=== PATIENT | female | born 1960 | race Caucasian/White ===

== ENCOUNTER 2020-02-18 11:18 | Outpatient (CLI) | payer MEDICARE, OTHER, SELFPAY ==
--- NOTE | 2020-02-18 11:30 | MM_ITS ---
WS: [id number] BILATERAL DIGITAL SCREENING MAMMOGRAPHY WITH CAD CLINICAL INFORMATION: screen breast HISTORY: Screening mammogram. Bilateral breast soreness COMPARISON: TECHNIQUE: Bilateral CC and MLO views. FINDINGS: Scattered fibroglandular densities bilaterally. No suspicious focal mass, asymmetry, calcifications, or architectural distortion. No evidence of malignancy. A few stable intramammary lymph nodes MM/[place] [id number] IMPRESSION: BI-RADS: 2-Benign FOLLOW UP: 1 Year Follow-up Recommend return to annual screening mammography.
== END 2020-02-18 11:19 | disposition home or self-care (01) ==
LOC: RADSHAW 11:29
PROVIDERS: PCP Nurse Practitioner; Visit Provider Nurse Practitioner
DX: Z12.31 Encounter for screening mammogram for malignant neoplasm of breast (principal)
CPT/HCPCS: 77067

== ENCOUNTER → 2020-02-25 16:01 | Outpatient (BNVA) | payer MEDICARE, OTHER, SELFPAY | PROVIDERS: PCP Nurse Practitioner; Visit Provider Nurse Practitioner | DX: S89.92XA Unspecified injury of left lower leg, initial encounter (principal) | CPT/HCPCS: 73562 ==

== ENCOUNTER → 2020-06-29 13:59 | Outpatient (BNVA) | payer MEDICARE, SELFPAY | PROVIDERS: PCP Nurse Practitioner; Visit Provider Nurse Practitioner | DX: L50.9 Urticaria, unspecified (principal); E03.8 Other specified hypothyroidism; E11.65 Type 2 diabetes mellitus with hyperglycemia; Z98.890 Other specified postprocedural states; E11.69 Type 2 diabetes mellitus with other specified complication; E78.5 Hyperlipidemia, unspecified; I10 Essential (primary) hypertension | CPT/HCPCS: 80053; 80061; 81000; 82043; 83036; 84439; 84443; 84481 ==

== ENCOUNTER 2021-01-03 13:44 | Emergency (ER) | payer MEDICARE, SELFPAY ==
[2021-01-03] VITALS (7 sets, daily range): BP systolic 102–138; BP diastolic 56–88; PULSE 81–113; RESP 16–22; TEMP 36.9; O2SAT 90–96; BMI 26.6
--- NOTE | 2021-01-03 19:07 | XRR_ITS ---
PROCEDURE INFORMATION: Exam: XR Chest Exam date and time: 01/03/2021 7:07 PM Age: 60 years old Clinical indication: Cough and shortness of breath; Additional info: Dyspnea, covid TECHNIQUE: Imaging protocol: XR of the chest. Views: 1 view. COMPARISON: CR XR chest 2V* [id number] 12/31/2020 10:03 AM FINDINGS: Lungs: Fibrotic interstitial lung changes are redemonstrated. No developing airspace opacities are identified. Pleural spaces: Unremarkable. No pleural effusion. No pneumothorax. Heart/Mediastinum: Unremarkable. No cardiomegaly. Bones/joints: Unremarkable. XR/XR chest 1V portable [id number] IMPRESSION: No changes in the chest are identified.
--- NOTE | 2021-01-03 20:43 | ED_ITS ---
HPI - COVID General: Chief Complaint: COVID symptoms Stated Complaint: N/V/D, SOB, Headache, Covid + Time Seen by Provider: 01/03/21 20:42 Triage information: Has fever, cough or shortness of breath . Exposure to COVID + person last 14 days History of Present Illness: HPI Narrative: Patient comes in with respiratory symptoms for about 3 weeks. Patient reports cough and congestion with an occasional fever for last 3 weeks. Patient 1 week ago was tested for COVID-19 and was positive. Patient comes in today due to the persistent symptoms. Patient overall looks mildly unwell but not toxic. Patient is alert oriented without any acute distress. COVID 19 common symptoms: positive fever(s) and non-productive cough COVID Results: No Data to Display Review of Systems General: Reports: 10 or more systems reviewed and unremarkable except in HPI and below Const: Reports: fever(s) Resp: Reports: non-productive cough PFS ED PFSH: Medical History (Updated 01/03/21 @ 22:27 by DILMA Mcconnell) Adult onset hypothyroidism Asthma Diabetes mellitus with hyperglycemia, without long-term current use of insulin Essential (primary) hypertension Urticaria of entire body Surgical History (Updated 01/02/21 @ 21:58 by СЕРГЕЙ Milligan) History of cholecystectomy 2005 History of colonoscopy 2016 History of endoscopy 2016 History of hysterectomy 2007 History of lumbar surgery 2006 History of melanoma 03/03/2010 right buttock History of surgery on left wrist 2013 Family History Grandfather Cancer Lung Cancer Father Diabetes Social History Smoking and tobacco status: former smoker Second hand smoke exposure: No Smoking risk assessment/counseling performed?: No Alcohol intake: current Alcohol intake frequency: holidays/special occasions only Desire information about alcohol rehabilitation?: No Counseling given: No Desire information about substance/drug rehabilitation?: No Counseling given: No Caregiver/support person: No Lives independently: Yes Household members: spouse Housing: House Marital status: service: No Current occupational status: disabled History of recent travel: No Current gender identity: Female Physical Exam Const: COMMON NORMALS: no acute distress and patient oriented x3 GENERAL APPEARANCE: cooperative HENMT: COMMON NORMALS: normocephalic, TM's normal bilaterally and Normal external nose present HEAD & SCALP: normal to inspection and normocephalic NOSE: Normal external nose present TYMPANIC MEMBRANE: TM's normal bilaterally MOUTH: Normal oral and palatal mucosa present Eye: GENERAL EYE: appearance normal, both eyes and all related structures Neck/C-Spine: COMMON NORMALS: full ROM Chest: COMMONS NORMALS: normal inspection of the chest Resp: COMMON NORMALS: normal respiratory effort EFFORT & INSPECTION: Yes able to speak in complete sentences AUSCULTATION: diminished lung sounds Cardio: COMMON NORMALS: regular rate and regular rhythm RATE: regular rate RHYTHM: regular rhythm GI: COMMON NORMALS: non-tender Back/Pelvis: COMMON NORMALS: thoracic and lumbar spine normal to inspection Extremity: COMMON NORMALS: normal to inspection Neuro: COMMON NORMALS: patient oriented x3 and moves all extremities Psych: COMMON NORMALS: mental status grossly normal and cooperative Skin: COMMON NORMALS: no rashes or lesions noted GENERAL SKIN EXAM: no rashes or lesions noted Course Vital Signs: Vital signs: Vital Signs Temperature 98.5 F 01/03/21 14:53 Pulse Rate 113 H 01/03/21 22:10 Respiratory Rate 16 01/03/21 22:10 Blood Pressure 138/79 01/03/21 21:26 Pulse Oximetry 96 01/03/21 22:10 MDM - COVID MDM Narrative: Medical decision making narrative: Patient comes in today for concerns of dehydration, shortness of breath, and Covid positive test. Patient has been ill for about 3 weeks. On exam patient has some light crackles in bilateral lung ramos but otherwise good air movement. Pulse oxygen is 96%. Skin is warm and dry. Differential diagnosis includes respiratory failure, pneumonia, COVID-19 sequela. Chest x-ray showed no changes from a previous x- ray done 1 week ago which suggest a chronic pulmonary fibrosis type illness. CBC showed a white count of 3.7. CMP was unremarkable. With maybe some mild hyponatremia at 135 and hypokalemia at 3.4. Patient was given 1 L of IV normal saline for concerns of may be some mild dehydration. Patient was also given 8 mg of dexamethasone due to her shortness of breath. Recommended patient discontinue with her routine medications and follow-up with her primary care. I was going to do albuterol inhaler due to her shortness of breath but patient has allergy to that. Patient should talk to nurse practitioner Marleen for further treatment. Patient reported understanding. Lab Data: Labs: Lab Results 01/03/21 01/03/21 01/03/21 Range/Units 21:46 21:46 21:46 WBC 3.7 L (4.0-10.0) 10^3/ uL RBC 4.27 (4.1-5.3) 10^6/u L Hgb 12.1 (11.5-15.3) g/dL Hct 37.7 (37.0-47.0) % MCV 88.3 (81-99) fL MCH 28.3 (28.0-34.0) pg MCHC 32.1 (30.0-36.0) g/dL RDW 14.0 (12.1-15.1) % Plt Count 233 (130-400) 10^3/c mm MPV 9.7 (7.4-10.4) fL Neut % (Auto) 59.6 % Lymph % (Auto) 30.8 % [place] % (Auto) 8.8 % Eos % (Auto) 0.0 % Baso % (Auto) 0.3 % Neut # (Auto) 2.22 (1.8-7.7) 10^3/u L Lymph # (Auto) 1.2 (0.8-4.8) 10^3/u L [place] # (Auto) 0.3 (0.2-0.9) 10^3/u L Eos # (Auto) 0.0 (0.0-0.8) 10^3/u L Baso # (Auto) 0.0 (0.0-0.1) 10^3/u L Nucleated RBC % (a uto) 0 % Nucleated RBCs # 0.0 /100WBC D-Dimer Cancelled Sodium 135 L (136-145) mmol/L Potassium 3.4 L (3.5-5.1) mmol/L Chloride 97 L (98-107) mmol/L Carbon Dioxide 21 L (22-29) mmol/L Anion Gap 20.4 H (5-19) BUN 9 (8-23) mg/dL Creatinine 0.6 (0.5-0.9) mg/dL GFR Calculation 101.3 (90-130) mL/min Glucose 96 (65-115) mg/dL Calculated Osmolal ity 279 L (285-295) mOsm/k g Calcium 8.4 L (8.5-10.5) mg/dL Total Bilirubin 0.5 (0.15-1.2) mg/dL AST 23 (0-32) U/L ALT 12 (0-33) U/L Alkaline Phosphata se 92 (35-105) IU/L Creatine Kinase 22 L (26-192) U/L Troponin T Gen 5 n g/L (0-10) ng/L C-Reactive Protein 41.1 H (0.0-4.9) mg/L Total Protein 6.7 (6.6-8.7) g/dL Albumin 4.1 (3.5-5.2) g/dL Globulin 2.6 (1.3-4.6) g/dL 01/03/21 01/03/21 Range/Units 21:46 22:19 WBC (4.0-10.0) 10^3/ uL RBC (4.1-5.3) 10^6/u L Hgb (11.5-15.3) g/dL Hct (37.0-47.0) % MCV (81-99) fL MCH (28.0-34.0) pg MCHC (30.0-36.0) g/dL RDW (12.1-15.1) % Plt Count (130-400) 10^3/c mm MPV (7.4-10.4) fL Neut % (Auto) % Lymph % (Auto) % [place] % (Auto) % Eos % (Auto) % Baso % (Auto) % Neut # (Auto) (1.8-7.7) 10^3/u L Lymph # (Auto) (0.8-4.8) 10^3/u L [place] # (Auto) (0.2-0.9) 10^3/u L Eos # (Auto) (0.0-0.8) 10^3/u L Baso # (Auto) (0.0-0.1) 10^3/u L Nucleated RBC % (a uto) % Nucleated RBCs # /100WBC D-Dimer <= 0.27 Sodium (136-145) mmol/L Potassium (3.5-5.1) mmol/L Chloride (98-107) mmol/L Carbon Dioxide (22-29) mmol/L Anion Gap (5-19) BUN (8-23) mg/dL Creatinine (0.5-0.9) mg/dL GFR Calculation (90-130) mL/min Glucose (65-115) mg/dL Calculated Osmolal ity (285-295) mOsm/k g Calcium (8.5-10.5) mg/dL Total Bilirubin (0.15-1.2) mg/dL AST (0-32) U/L ALT (0-33) U/L Alkaline Phosphata se (35-105) IU/L Creatine Kinase (26-192) U/L Troponin T Gen 5 n g/L 6 (0-10) ng/L C-Reactive Protein (0.0-4.9) mg/L Total Protein (6.6-8.7) g/dL Albumin (3.5-5.2) g/dL Globulin (1.3-4.6) g/dL COVID Results: No Data to Display Discharge Plan Discharge Patient Disposition: Home Clinical Impression: COVID-19, Mild dehydration, Chronic lung disease Condition: Stable Prescriptions: No Action cetirizine [Wal-Zyr (cetirizine)] 10 mg tablet 20 mg PO BID RF: 0 ascorbic acid (vitamin C) 1,000 mg tablet 500 mg PO BID RF: 0 vitamin E (dl, acetate) 400 unit capsule 400 unit PO DAILY RF: 0 pyridoxine (vitamin B6) 100 mg tablet 100 mg PO BID RF: 0 magnesium oxide 400 mg magnesium tablet 400 mg PO BID RF: 0 cholecalciferol (vitamin D3) 125 mcg (5,000 unit) tablet 125 mcg PO DAILY RF: 0 aspirin [Adult Low Dose Aspirin] 81 mg tablet,delayed release (DR/EC) 81 mg PO BID RF: 0 levothyroxine 100 mcg tablet See Rx Instructions PO DAILY Qty: 90 RF: 1 Janumet XR 50-500 mg tablet, ER multiphase 24 hr 1 tab PO DAILY Qty: 30 RF: 5 hydroxyzine pamoate 25 mg capsule 25 mg PO BID PRN (Reason: rash and anxiety) Qty: 180 RF: 1 metoprolol succinate [Toprol XL] 100 mg tablet extended release 24 hr 100 mg PO DAILY Qty: 90 RF: 1 prednisone 10 mg tablet 10 mg PO DAILY Qty: 14 RF: 0 (DME) blood-glucose meter [OneTouch Ultra2 Meter] Kit See Rx Instructions .ROUTE .MEDSUPPLY Qty: 1 RF: 0 (DME) OneTouch Ultra Blue Test Strip Strip See Rx Instructions .ROUTE .MEDSUPPLY Qty: 50 RF: 5 nitrofurantoin monohyd/m-cryst [Macrobid] 100 mg capsule 100 mg PO Q12H 7 Days Qty: 14 RF: 0 montelukast 10 mg tablet 10 mg PO .HS Qty: 90 RF: 1 famotidine [Pepcid] 20 mg tablet 40 mg PO BID Qty: 360 RF: 1 gabapentin 600 mg tablet 600 mg PO TID 90 Days Qty: 270 RF: 1 fenofibrate nanocrystallized [Tricor] 145 mg tablet 145 mg PO DAILY Qty: 90 RF: 1 cyclobenzaprine 10 mg tablet 10 mg PO .at bedtime Qty: 90 RF: 1 Discharge Orders: Discharge ED (Routine); Ordered 01/03/21 Ordered By: Jaden Carrillo Referrals: Blanquita Hawley, СЕРГЕЙ [Primary Care Provider] - Discharge Diet: Usual diet Discharge Activity: Increase activity as tolerated Patient Instructions: Viral Syndrome (ED), Opioid Safety Activity Restrictions/Additional Instructions: Continue with routine care. Follow-up with primary care for other instructions. Return to the emergency room for worsening symptoms or new concerns. Monitor pulse oxygen with a pulse oximetry. If you notice to oximetry less than 90% that doesn't recover with deep breath or coughing they need to be further evaluated with your primary care or emergency department. Coding Level of Care Code ED Short Filler Bunch Machine Operator for Rigoberto Fwd Exam Comprehensive
[2021-01-03 21:57] LABS: Basophils % 0.3 %; Hematocrit 37.7 % (37.0-47.0); Hemoglobin 12.1 g/dL (11.5-15.3); Lymphocytes # 1.2 10^3/uL (0.8-4.8); Lymphocytes % 30.8 %; Mean Corpuscular HGB Conc 32.1 g/dL (30.0-36.0); Mean Corpuscular Hemoglobin 28.3 pg (28.0-34.0); Mean Corpuscular Volume 88.3 fL (81-99); Mean Platelet Volume 9.7 fL (7.4-10.4); Monocytes # 0.3 10^3/uL (0.2-0.9); Monocytes % 8.8 %; Neutrophils # 2.22 10^3/uL (1.8-7.7); Neutrophils % 59.6 %; Nucleated Red Blood Cells % 0 %; Platelet Count 233 10^3/cmm (130-400); Red Blood Count 4.27 10^6/uL (4.1-5.3); White Blood Count 3.7 10^3/uL (4.0-10.0)
[2021-01-03 22:14] LABS: Troponin T (5th) Once 6 ng/L (0-10)
[2021-01-03 22:16] LABS: Alanine Aminotransferase 12 U/L (0-33); Albumin Level 4.1 g/dL (3.5-5.2); Alkaline Phosphatase 92 IU/L (35-105); Anion Gap 20.4 (5-19); Aspartate Amino Transferase 23 U/L (0-32); Blood Urea Nitrogen 9 mg/dL (8-23); C Reactive Protein 41.1 mg/L (0.0-4.9); Calcium 8.4 mg/dL (8.5-10.5); Carbon Dioxide 21 mmol/L (22-29); Chloride 97 mmol/L (98-107); Creatine Phosphokinase 22 U/L (26-192); Globulin 2.6 g/dL (1.3-4.6); Glomerular Filtration Rate 101.3 mL/min (90-130); Glucose 96 mg/dL (65-115); Osmolality Calculated 279 mOsm/kg (285-295); Potassium 3.4 mmol/L (3.5-5.1); Sodium 135 mmol/L (136-145); Total Bilirubin 0.5 mg/dL (0.15-1.2); Total Protein 6.7 g/dL (6.6-8.7)
[2021-01-03 22:35] LABS: D Dimer <= 0.27 ug/mIFEU (0-0.59)
[2021-01-03] MEDS: dexamethasone 4 mg/mL INJ 8 MG IVP (22:46)
[2021-01-03] MEDS: sodium chloride 0.9% 1,000 ML 999 ML IV (22:46)
== END 2021-01-03 23:52 | disposition home or self-care (01) ==
PROVIDERS: Emergency Provider Nurse Practitioner Family; PCP Nurse Practitioner
DX: U07.1 COVID-19 (principal); E86.0 Dehydration; J98.4 Other disorders of lung; E03.9 Hypothyroidism, unspecified; J45.909 Unspecified asthma, uncomplicated; E11.65 Type 2 diabetes mellitus with hyperglycemia; Z79.4 Long term (current) use of insulin; I10 Essential (primary) hypertension; Z87.891 Personal history of nicotine dependence
CPT/HCPCS: 71045; 80053; 82550; 84484; 85025; 85378; 86140; 96361; 96374; 99284; J1100; J7030

== ENCOUNTER 2021-01-08 04:53 | Inpatient (IN) | payer MEDICARE, SELFPAY ==
[2021-01-08] VITALS (28 sets, daily range): BP systolic 105–138; BP diastolic 64–86; PULSE 66–117; RESP 15–40; TEMP 37.3; O2SAT 50–97; BMI 26.6
--- NOTE | 2021-01-08 05:00 | ECG_ITS ---
[facility] Test Date: 2021-01-08 Pat Name: Millie Chery Department: Room: Gender: Female Yarn Sorter: : 1960 Requested By: Daniele Lopze Order Number: [id number] Reading MD: TAMMY BRIAN Measurements Intervals [place] Rate: 108 P: 77 UT: 172 QRS: 91 QRSD: 100 T: 58 QT: 344 QTc: 463 Interpretive Statements SINUS TACHYCARDIA BORDERLINE RIGHT AXIS DEVIATION [QRS AXIS > 90] LOW QRS VOLTAGE IN PRECORDIAL LEADS [QRS DEFLECTION < 1.0 mV IN CHEST LEADS] NONSPECIFIC ST & T-WAVE ABNORMALITY ABNORMAL RHYTHM ECG Compared to ECG 10/12/2015 00:48:36 Low QRS voltage now present Sinus rhythm no longer present T-wave abnormality still present Electronically Signed On 01-08-2021 20:28:19 CDT by TAMMY BRIAN [id number]
--- NOTE | 2021-01-08 05:00 | XRR_ITS ---
PROCEDURE INFORMATION: Exam: XR Chest Exam date and time: 01/08/2021 5:00 AM Age: 60 years old Clinical indication: Shortness of breath; Prior surgery; Surgery type: Gb; Patient HX: Hypoxic with 02 sat in the 50s. Covid positive. History of melanoma. ; Additional info: SOB TECHNIQUE: Imaging protocol: XR of the chest. Views: 1 view. Total images: 1 COMPARISON: CR (CHEST, ) 01/03/2021 7:36 PM FINDINGS: Lungs: Coarse chronic pulmonary markings. Bilateral increased interstitial and alveolar opacities seen in the mid lung and lung bases are nonspecific and may represent atelectasis, pneumonia, and/or edema. Pleural spaces: Unremarkable. No pleural effusion. No pneumothorax. Heart/Mediastinum: Heart size is stable when compared to the prior exam. Bones/joints: Osseous structures are unchanged from the prior exam. XR/XR chest 1V portable [id number] IMPRESSION: 1. Coarse chronic pulmonary markings. 2. Bilateral increased interstitial and alveolar opacities seen in the mid lung and lung bases are nonspecific and may represent atelectasis, pneumonia, and/or edema.
[2021-01-08 05:12] LABS: Basophils % 0.3 %; Hematocrit 38.7 % (37.0-47.0); Hemoglobin 12.6 g/dL (11.5-15.3); Lymphocytes # 0.9 10^3/uL (0.8-4.8); Lymphocytes % 14.2 %; Mean Corpuscular HGB Conc 32.6 g/dL (30.0-36.0); Mean Corpuscular Hemoglobin 27.9 pg (28.0-34.0); Mean Corpuscular Volume 85.6 fL (81-99); Mean Platelet Volume 9.2 fL (7.4-10.4); Monocytes # 0.3 10^3/uL (0.2-0.9); Monocytes % 4.9 %; Neutrophils # 4.87 10^3/uL (1.8-7.7); Neutrophils % 76.5 %; Nucleated Red Blood Cells % 0 %; Platelet Count 339 10^3/cmm (130-400); Red Blood Count 4.52 10^6/uL (4.1-5.3); Red Cell Distribution Width 13.5 % (12.1-15.1); White Blood Count 6.4 10^3/uL (4.0-10.0)
[2021-01-08] MEDS: LORazepam 2 mg/mL INJ 1 mL 0.5 MG IVP (05:14)
[2021-01-08] MEDS: dexamethasone 4 mg/mL INJ 8 MG IVP (05:14)
[2021-01-08 05:24] LABS: D Dimer 2.29 ug/mIFEU (0-0.59)
[2021-01-08 05:30] LABS: Lactic Sepsis W/Reflex 1.7 mmol/L (0.5-2.2)
[2021-01-08 05:43] LABS: NT Pro B Type Natriuretic Pept 576 pg/mL (0-125); Procalcitonin 0.23 ng/mL (0-0.5)
[2021-01-08 05:54] LABS: Alanine Aminotransferase 9 U/L (0-33); Albumin Level 3.8 g/dL (3.5-5.2); Alkaline Phosphatase 97 IU/L (35-105); Anion Gap 24.3 (5-19); Aspartate Amino Transferase 35 U/L (0-32); Blood Urea Nitrogen 7 mg/dL (8-23); C Reactive Protein 101.8 mg/L (0.0-4.9); Calcium 8.7 mg/dL (8.5-10.5); Carbon Dioxide 21 mmol/L (22-29); Chloride 93 mmol/L (98-107); Globulin 3.6 g/dL (1.3-4.6); Glomerular Filtration Rate 84.8 mL/min (90-130); Glucose 139 mg/dL (65-115); Osmolality Calculated 280 mOsm/kg (285-295); Potassium 3.3 mmol/L (3.5-5.1); Sodium 135 mmol/L (136-145); Total Bilirubin 0.6 mg/dL (0.15-1.2); Total Protein 7.4 g/dL (6.6-8.7)
--- NOTE | 2021-01-08 06:31 | ED_ITS ---
HPI - COVID General: Chief Complaint: COVID symptoms Stated Complaint: low o2 Time Seen by Provider: 01/08/21 05:00 Triage information: Has fever, cough or shortness of breath . Exposure to COVID + person last 14 days History of Present Illness: HPI Narrative: 60-year-old female who tested positive previously this week for COVID-19. She came in this morning originally as an outpatient for monoclonal antibody infusion. On presentation in triage, she was extremely short of breath. She says she has been getting worse for the past couple of days. Pulse ox was in the 50s in triage. She has been coughing. She has had some fever she has had diarrhea as well but no vomiting. She has a history of asthma. MD complaint: known COVID positive Prior covid testing: yes, results known COVID 19 common symptoms: positive fever(s), cough, non-productive cough, dyspnea, fatigue, body aches, headache(s), nasal congestion and diarrhea; negative vomiting COVID 19 other sytmptoms: positive chest pressure Onset (ago): day(s) Severity: severe Pertinent comorbid conditions: hypertension and COPD/respiratory disease Treatment prior to arrival: acetaminophen COVID Results: No Data to Display Review of Systems Const: Reports: fever(s), body aches and fatigue ENMT: Reports: nasal congestion Resp: Reports: dyspnea and non-productive cough GI: Reports: diarrhea; Denies: vomiting Neuro: Reports: headache(s) PFS ED PFSH: Medical History Adult onset hypothyroidism Asthma Diabetes mellitus with hyperglycemia, without long-term current use of insulin Essential (primary) hypertension Urticaria of entire body Surgical History History of cholecystectomy 2005 History of colonoscopy 2016 History of endoscopy 2016 History of hysterectomy 2007 History of lumbar surgery 2006 History of melanoma 03/03/2010 right buttock History of surgery on left wrist 2013 Family History Grandfather Cancer Lung Cancer Father Diabetes Social History Smoking and tobacco status: former smoker Second hand smoke exposure: No Smoking risk assessment/counseling performed?: No Alcohol intake: current Alcohol intake frequency: holidays/special occasions only Desire information about alcohol rehabilitation?: No Counseling given: No Desire information about substance/drug rehabilitation?: No Counseling given: No Caregiver/support person: No Lives independently: Yes Household members: spouse Housing: House Marital status: service: No Current occupational status: disabled History of recent travel: No Current gender identity: Female Physical Exam Const: GENERAL APPEARANCE: in distress, lethargic and ill appearing ORIENTATION/CONSCIOUSNESS: Yes awake and Yes lethargic Chest: COMMONS NORMALS: normal inspection of the chest Resp: COMMON NORMALS: clear to auscultation bilaterally EFFORT & INSPECTION: Yes tachypneic, Yes respiratory distress, Yes labored and Yes uses accessory muscles AUSCULTATION: clear to auscultation bilaterally Cardio: RATE: tachycardic Neuro: SENSORIUM/ORIENTATION: Yes lethargic Course Consultations: Consultation #1: mele Time: 07:47 Vital Signs: Vital signs: Vital Signs Temperature 99.2 F 01/08/21 04:58 Pulse Rate 104 H 01/08/21 07:20 Respiratory Rate 18 01/08/21 07:20 Blood Pressure 126/86 01/08/21 07:20 Pulse Oximetry 94 01/08/21 07:20 MDM - COVID MDM Narrative: Medical decision making narrative: 60-year-old female with COVID-19. She presents for monoclonal antibody infusion, but was severely hypoxic in triage. She is currently on high flow nasal cannula. Saturations are 93%. Heart rate is 100. Blood pressure 128/69. She has bilateral groundglass infiltrates in her lungs. Potassium is 3.3. Repleted in the ER. She is received a dose of antivirals and dexamethasone here. She will be admitted to the ICU for further treatment. No beds available, she will be on an ER hold. Lab Data: Labs: Lab Results 01/08/21 01/08/21 01/08/21 Range/Units 05:00 05:00 05:00 WBC 6.4 (4.0-10.0) 10^3/ uL RBC 4.52 (4.1-5.3) 10^6/u L Hgb 12.6 (11.5-15.3) g/dL Hct 38.7 (37.0-47.0) % MCV 85.6 (81-99) fL MCH 27.9 L (28.0-34.0) pg MCHC 32.6 (30.0-36.0) g/dL RDW 13.5 (12.1-15.1) % Plt Count 339 (130-400) 10^3/c mm MPV 9.2 (7.4-10.4) fL Neut % (Auto) 76.5 % Lymph % (Auto) 14.2 % [place] % (Auto) 4.9 % Eos % (Auto) 0.0 % Baso % (Auto) 0.3 % Neut # (Auto) 4.87 (1.8-7.7) 10^3/u L Lymph # (Auto) 0.9 (0.8-4.8) 10^3/u L [place] # (Auto) 0.3 (0.2-0.9) 10^3/u L Eos # (Auto) 0.0 (0.0-0.8) 10^3/u L Baso # (Auto) 0.0 (0.0-0.1) 10^3/u L Nucleated RBC % (a uto) 0 % Nucleated RBCs # 0.0 /100WBC D-Dimer 2.29 H (0-0.59) ug/mIFE U Specimen Type Sample Site ABG pH (7.35-7.45) ABG pCO2 (35-45) mmHg ABG pO2 (80.0-100.0) mmH g ABG HCO3 (22-26) mmol/L ABG Base Excess (-2.0-2.0) mmol/ L Dylan Test Hematocrit (37-47) % O2 Delivery Device O2 Liters/Min % FiO2 % Lean Facilitator ID Sodium 135 L (136-145) mmol/L Potassium 3.3 L (3.5-5.1) mmol/L Chloride 93 L (98-107) mmol/L Carbon Dioxide 21 L (22-29) mmol/L Anion Gap 24.3 H (5-19) BUN 7 L (8-23) mg/dL Creatinine 0.7 (0.5-0.9) mg/dL GFR Calculation 84.8 L (90-130) mL/min Glucose 139 H (65-115) mg/dL Calculated Osmolal ity 280 L (285-295) mOsm/k g Lactic Acid (0.5-2.2) mmol/L Calcium 8.7 (8.5-10.5) mg/dL Total Bilirubin 0.6 (0.15-1.2) mg/dL AST 35 H (0-32) U/L ALT 9 (0-33) U/L Alkaline Phosphata se 97 (35-105) IU/L C-Reactive Protein 101.8 H (0.0-4.9) mg/L NT-Pro-B Natriuret Pep 576 H (0-125) pg/mL Total Protein 7.4 (6.6-8.7) g/dL Albumin 3.8 (3.5-5.2) g/dL Globulin 3.6 (1.3-4.6) g/dL Procalcitonin 0.23 (0-0.5) ng/mL 01/08/21 01/08/21 Range/Units 05:00 06:40 WBC (4.0-10.0) 10^3/ uL RBC (4.1-5.3) 10^6/u L Hgb (11.5-15.3) g/dL Hct (37.0-47.0) % MCV (81-99) fL MCH (28.0-34.0) pg MCHC (30.0-36.0) g/dL RDW (12.1-15.1) % Plt Count (130-400) 10^3/c mm MPV (7.4-10.4) fL Neut % (Auto) % Lymph % (Auto) % [place] % (Auto) % Eos % (Auto) % Baso % (Auto) % Neut # (Auto) (1.8-7.7) 10^3/u L Lymph # (Auto) (0.8-4.8) 10^3/u L Christian # (Auto) (0.2-0.9) 10^3/u L Eos # (Auto) (0.0-0.8) 10^3/u L Baso # (Auto) (0.0-0.1) 10^3/u L Nucleated RBC % (a uto) % Nucleated RBCs # /100WBC D-Dimer (0-0.59) ug/mIFE U Specimen Type Arterial Sample Site Radial, right ABG pH 7.50 H (7.35-7.45) ABG pCO2 31.1 L (35-45) mmHg ABG pO2 76.5 L (80.0-100.0) mmH g ABG HCO3 24.3 (22-26) mmol/L ABG Base Excess 1.6 (-2.0-2.0) mmol/ L Dylan Test Pos Hematocrit 36.8 L (37-47) % O2 Delivery Device Nc O2 Liters/Min 50.0 % FiO2 100.0 % Lean Facilitator ID [place] Sodium (136-145) mmol/L Potassium (3.5-5.1) mmol/L Chloride (98-107) mmol/L Carbon Dioxide (22-29) mmol/L Anion Gap (5-19) BUN (8-23) mg/dL Creatinine (0.5-0.9) mg/dL GFR Calculation (90-130) mL/min Glucose (65-115) mg/dL Calculated Osmolal ity (285-295) mOsm/k g Lactic Acid 1.7 (0.5-2.2) mmol/L Calcium (8.5-10.5) mg/dL Total Bilirubin (0.15-1.2) mg/dL AST (0-32) U/L ALT (0-33) U/L Alkaline Phosphata se (35-105) IU/L C-Reactive Protein (0.0-4.9) mg/L NT-Pro-B Natriuret Pep (0-125) pg/mL Total Protein (6.6-8.7) g/dL Albumin (3.5-5.2) g/dL Globulin (1.3-4.6) g/dL Procalcitonin (0-0.5) ng/mL COVID Results: No Data to Display Discharge Plan Discharge Patient Disposition: Admitted As Inpatient Clinical Impression: COVID-19 Respiratory failure Qualifiers: Chronicity: acute Respiratory failure complication: hypoxia Qualified Code(s): J96.01 - Acute respiratory failure with hypoxia Condition: Critical Coding Level of Care Code ED Assistant Professor In Family Studies for g Fwd Exam Expanded Problem Focused
[2021-01-08 06:53] LABS: ABG PCO2 31.1 mmHg (35-45); Arterial Blood Gas Hematocrit 36.8 % (37-47); Base Excess ABG 1.6 mmol/L (-2.0-2.0); Blood Gas Allen Test Pos; Blood Gas Operator Identificat MONRO; Blood Gas Sample Site Radial, right; Blood Gas Sample Type Arterial; HCO3 ABG 24.3 mmol/L (22-26); Oxygen Device NC; PO2 ABG 76.5 mmHg (80.0-100.0)
--- NOTE | 2021-01-08 07:33 | CTR_ITS ---
PROCEDURE INFORMATION: Exam: CTA Chest With Contrast Exam date and time: 01/08/2021 7:33 AM Age: 60 years old Clinical indication: Shortness of breath; Additional info: Chest pain TECHNIQUE: Imaging protocol: Computed tomographic angiography of the chest with contrast. 3D rendering (Not supervised by radiologist): MIP and/or 3D reconstructed images were created by the technologist. Total images: 810 Radiation optimization: All CT scans at this facility use at least one of these dose optimization techniques: automated exposure control; mA and/or kV adjustment per patient size (includes targeted exams where dose is matched to clinical indication); or iterative reconstruction. Contrast material: OMNIPAQUE 350; Contrast volume: 63 ml; Contrast route: INTRAVENOUS (IV); COMPARISON: CR (CHEST, ) 01/08/2021 5:21 AM RADIATION DOSE METRICS: Total DLP (mGy-cm): 553.3 FINDINGS: Pulmonary arteries: Pulmonary artery evaluation of good technical quality with no pulmonary artery embolism identified. Aorta: No aortic aneurysm nor dissection. Lungs: Benign granulomatous disease of the lung is noted. Severe centrilobular emphysematous changes are present. Honeycombing of lung suggesting pulmonary fibrosis with large areas of ground-glass opacity suggesting an acute alveolitis or pulmonary edema. Pleural spaces: Unremarkable. No pneumothorax. No pleural effusion. Heart: Unremarkable. No cardiomegaly. No pericardial effusion. Lymph nodes: Unremarkable. No enlarged lymph nodes. Bones/joints: Spinal degenerative changes are evident. Soft tissues: Unremarkable. CT/CT angio chest PE protcl [id number] IMPRESSION: 1. No aortic aneurysm nor dissection. 2. No pulmonary artery embolism identified. 3. Severe centrilobular emphysematous changes are present. 4. Honeycombing of lung suggesting pulmonary fibrosis with large areas of ground-glass opacity suggesting an acute alveolitis or pulmonary edema. Radiation Dose CTDIVOL = (mGy): DLP = 553.3 (mGy-cm)
[2021-01-08] MEDS: remdesivir 200 MG in sodium chloride 0.9% (100 ml) 100 ML 100 MG IV (08:02)
[2021-01-08] MEDS: iohexol 350 mg/mL 100 mL Btl IV (08:59)
[2021-01-08] MEDS: potassium chloride ER 20 mEq Tablet 40 MEQ PO (09:21)
--- NOTE | 2021-01-08 10:32 | PC.PHAR ---
pt states she takes care of her own medications-pt states she hasnt been taking all her meds like she should-pt states she only has been taking some because she has been so sick pt states she is unsure which ones she has taken
--- NOTE | 2021-01-08 11:12 | P.HP_ITS ---
Providers/Chief Complaint Admitting Physician: Bettie Naylor Primary Care Provider: Blanquita Hawley, CARDIOLOGY CLINICAL NURSE SPECIALIST-C Chief Complaint: low o2 History of Present Illness Millie Chery is a 60 year old female who presented to the hospital for monoclonal antibody infusion today for known COVID-19 infection. Prior to the infusion she was noted to be severely short of breath and found to have severe hypoxemia making her ineligible for the therapy. She was brought into the emergency room. Initial oxygen saturations were documented in the 50s. She is not chronically on oxygen. She does have a history of asthma. She was placed on high flow oxygen with improvement in her saturations once on 40 L flow and 100% FiO2. CTA of the chest did not show any evidence of pulmonary embolism. She did have some emphysematous changes and honeycombing suggestive of pulmonary fibrosis in addition to classic groundglass opacities noted with Covid. She had a positive at home Covid test done sometime within the last week. She had been seen by her primary care provider [place] at on December 30 and was complaining of left lung being sore . She was seen in the emergency room on January 03 with rep orts of fever and a nonproductive cough. Oxygen saturations at the time were in the 90s on room air. She received some dexamethasone. Patient again saw Blanquita January 05 complaining of continued and worsening symptoms. Oxygen saturations were noted to still be greater than 90. Repeat Covid testing was collected this date and rapid Covid antigen was confirmed to be positive (results are scanned into Expanse). She was referred for monoclonal antibody infusion at that time. She has not been vaccinated. Review of Systems Const: Reports: fever(s), chills, body aches, fatigue and malaise ENMT: Reports: throat pain, nasal congestion and other (loss of taste and smell) Card: Reports: chest pain, lightheadedness and dyspnea on exertion; Denies: palpitations, edema or syncope Resp: Reports: dyspnea, productive cough, non-productive cough and chest congestion GI: Reports: diarrhea; Denies: abdominal pain or vomiting : Denies: difficulty voiding Musc: Reports: muscle weakness; Denies: extremity pain Skin/Breast: Denies: rash Neuro: Reports: headache(s) and weakness in extremities (general rather than focal); Denies: difficulty communicating thoughts Psych: Reports: anxiety Medications/Allergies Home Medications Medication Instructions Recorded Confirmed Last Taken Type blood-glucose meter #1 each 06/03/20 01/08/21 Unknown Rx ascorbic acid (vitamin C) 1,000 mg 1,000 mg PO DAILY tab 06/29/20 01/08/21 Unknown History tablet aspirin 81 mg tablet,delayed 162 mg PO BEDTIME tab 06/29/20 01/08/21 Unknown History release cholecalciferol (vitamin D3) 125 125 mcg PO DAILY 06/29/20 01/08/21 Unknown Hist ory mcg (5,000 unit) tablet levothyroxine 100 mcg tablet See Rx Instructions PO DAILY #90 06/29/20 01/08/21 Unknown Rx tab metoprolol succinate 100 mg 100 mg PO DAILY #90 tab 06/29/20 01/08/21 Unknown Rx tablet,extended release 24 hr pyridoxine (vitamin B6) 100 mg 100 mg PO BID tab 06/29/20 01/08/21 Unknown History tablet sitagliptin 50 mg-metformin ER 500 1 tab PO DAILY #30 tab 06/29/20 01/08/21 Unknown Rx mg tablet,extended release 24h mp vitamin E (dl, acetate) 400 unit 400 unit PO DAILY 06/29/20 01/08/21 Unknown History capsule blood sugar diagnostic #50 each 07/02/20 01/08/21 Unknown Rx famotidine 20 mg tablet 40 mg PO BID #360 tab 11/11/20 01/08/21 Unknown Rx gabapentin 600 mg tablet 600 mg PO TID 90 Days #270 tab 12/14/20 01/08/21 Unknown Rx Tricor 145 mg PO QAM 01/08/21 01/08/21 Unknown History acetaminophen [Tylenol Extra 1,000 mg PO PRN 01/08/21 01/08/21 Unknown History Strength] cranberry 1 tab PO BEDTIME 01/08/21 01/08/21 Unknown History cyclobenzaprine 10 mg PO BEDTIME 01/08/21 01/08/21 Unknown History montelukast 10 mg PO BEDTIME 01/08/21 01/08/21 Unknown History Allergies Allergy/AdvReac Type Severity Reaction Status Date / Time albuterol Allergy Unknown Unknown Verified 01/08/21 09:49 Morpholine Analogues Allergy Unknown Unknown Verified 02/25/20 15:53 morphine Allergy Unknown Verified 01/08/21 09:49 PFSH Acute PFSH: Medical History (Updated 01/09/21 @ 01:41 by Bettie Naylor MD) Adult onset hypothyroidism Asthma Diabetes mellitus with hyperglycemia, without long-term current use of insulin Essential (primary) hypertension Hyperlipidemia associated with type 2 diabetes mellitus Intervertebral lumbar disc disorder with myelopathy, lumbar region Urticaria of entire body Surgical History History of cholecystectomy 2004 History of colonoscopy 2016 History of endoscopy 2016 History of hysterectomy 2007 History of lumbar surgery 2006 History of melanoma 03/03/2010 right buttock History of surgery on left wrist 2013 Family History Grandfather Cancer Lung Cancer Father Diabetes Social History (Updated 01/09/21 @ 01:37 by Bettie Naylor MD) Smoking and tobacco status: former smoker Second hand smoke exposure: No Alcohol intake: current Alcohol intake frequency: holidays/special occasions only Desire information about alcohol rehabilitation?: No Desire information about substance/drug rehabilitation?: No Caregiver/support person: No Lives independently: Yes Household members: spouse Housing: House Marital status: service: No Current occupational status: disabled History of recent travel: No Current gender identity: Female Vitals/I&O/Wt Last Vital Signs Temp 99.2 F 01/08/21 04:58 Pulse 99 01/08/21 10:58 Resp 20 H 01/08/21 10:58 BP 118/74 01/08/21 10:58 Pulse Ox 95 01/08/21 10:58 Weight last 48 hrs Weight 77.111 kg Physical Exam Narrative: EXAM NARRATIVE: Constitutional: alert, ill appearing, sitting up in the bed with oxygen on HEENT: normocephalic, dry membranes Neck: supple Respiratory: wheezes, crackles, tachypnea, mild retractions, talks in short sentences Cardiovascular: regular, no murmurs, peripheral pulses palpable Abdomen: soft, non tender, positive bowel sounds Extremities: no edema, no cyanosis Skin: dry, no rashes Neuro: face symmetric, speech clear, moves all extremities Psych: cooperative Data : 01/08/21 05:00 01/08/21 05:00 Micro: Microbiology 01/08/21 05:00 Blood Culture - Preliminary Blood SPECIMEN COLLECTED 01/08/21 04:40 Blood Culture - Preliminary Blood SPECIMEN COLLECTED Other data: Laboratory Results WBC 6.4 10^3/uL (4.0-10.0) 01/08/21 05:00 RBC 4.52 10^6/uL (4.1-5.3) 01/08/21 05:00 Hgb 12.6 g/dL (11.5-15.3) 01/08/21 05:00 Hct 38.7 % (37.0-47.0) 01/08/21 05:00 MCV 85.6 fL (81-99) 01/08/21 05:00 MCH 27.9 pg (28.0-34.0) L 01/08/21 05:00 MCHC 32.6 g/dL (30.0-36.0) 01/08/21 05:00 RDW 13.5 % (12.1-15.1) 01/08/21 05:00 Plt Count 339 10^3/cmm (130-400) 01/08/21 05:00 MPV 9.2 fL (7.4-10.4) 01/08/21 05:00 Neut % (Auto) 76.5 % 01/08/21 05:00 Lymph % (Auto) 14.2 % 01/08/21 05:00 Bulloch % (Auto) 4.9 % 01/08/21 05:00 Eos % (Auto) 0.0 % 01/08/21 05:00 Baso % (Auto) 0.3 % 01/08/21 05:00 Neut # (Auto) 4.87 10^3/uL (1.8-7.7) 01/08/21 05:00 Lymph # (Auto) 0.9 10^3/uL (0.8-4.8) 01/08/21 05:00 Bulloch # (Auto) 0.3 10^3/uL (0.2-0.9) 01/08/21 05:00 Eos # (Auto) 0.0 10^3/uL (0.0-0.8) 01/08/21 05:00 Baso # (Auto) 0.0 10^3/uL (0.0-0.1) 01/08/21 05:00 Nucleated RBC % (auto) 0 % 01/08/21 05:00 Nucleated RBCs # 0.0 /100WBC 01/08/21 05:00 D-Dimer 2.29 ug/mIFEU (0-0.59) H 01/08/21 05:00 Specimen Type Arterial 01/08/21 06:40 Sample Site Radial, right 01/08/21 06:40 ABG pH 7.50 (7.35-7.45) H 01/08/21 06:40 ABG pCO2 31.1 mmHg (35-45) L 01/08/21 06:40 ABG pO2 76.5 mmHg (80.0-100.0) L 01/08/21 06:40 ABG HCO3 24.3 mmol/L (22-26) 01/08/21 06:40 ABG Base Excess 1.6 mmol/L (-2.0-2.0) 01/08/21 06:40 Dylan Test Pos 01/08/21 06:40 Hematocrit 36.8 % (37-47) L 01/08/21 06:40 O2 Delivery Device Nc 01/08/21 06:40 O2 Liters/Min 50.0 % 01/08/21 06:40 FiO2 100.0 % 01/08/21 06:40 Hunting Sales Associate ID Monro 01/08/21 06:40 Sodium 135 mmol/L (136-145) L 01/08/21 05:00 Potassium 3.3 mmol/L (3.5-5.1) L 01/08/21 05:00 Chloride 93 mmol/L (98-107) L 01/08/21 05:00 Carbon Dioxide 21 mmol/L (22-29) L 01/08/21 05:00 Anion Gap 24.3 (5-19) H 01/08/21 05:00 BUN 7 mg/dL (8-23) L 01/08/21 05:00 Creatinine 0.7 mg/dL (0.5-0.9) 01/08/21 05:00 GFR Calculation 84.8 mL/min (90-130) L 01/08/21 05:00 Glucose 139 mg/dL (65-115) H 01/08/21 05:00 Calculated Osmolality 280 mOsm/kg (285-295) L 01/08/21 05:00 Lactic Acid 1.7 mmol/L (0.5-2.2) 01/08/21 05:00 Calcium 8.7 mg/dL (8.5-10.5) 01/08/21 05:00 Total Bilirubin 0.6 mg/dL (0.15-1.2) 01/08/21 05:00 AST 35 U/L (0-32) H 01/08/21 05:00 ALT 9 U/L (0-33) 01/08/21 05:00 Alkaline Phosphatase 97 IU/L (35-105) 01/08/21 05:00 C-Reactive Protein 101.8 mg/L (0.0-4.9) H 01/08/21 05:00 NT-Pro-B Natriuret Pep 576 pg/mL (0-125) H 01/08/21 05:00 Total Protein 7.4 g/dL (6.6-8.7) 01/08/21 05:00 Albumin 3.8 g/dL (3.5-5.2) 01/08/21 05:00 Globulin 3.6 g/dL (1.3-4.6) 01/08/21 05:00 Procalcitonin 0.23 ng/mL (0-0.5) 01/08/21 05:00 Impressions Chest X-Ray 01/08/21 05:00 IMPRESSION: 1. Coarse chronic pulmonary markings. 2. Bilateral increased interstitial and alveolar opacities seen in the mid lung and lung bases are nonspecific and may represent atelectasis, pneumonia, and/or edema. Chest CTA 01/08/21 07:33 IMPRESSION: 1. No aortic aneurysm nor dissection. 2. No pulmonary artery embolism identified. 3. Severe centrilobular emphysematous changes are present. 4. Honeycombing of lung suggesting pulmonary fibrosis with large areas of ground-glass opacity suggesting an acute alveolitis or pulmonary edema. Radiation Dose CTDIVOL = (mGy): DLP = 553.3 (mGy-cm) A&P Assessment and plan (1) COVID-19: Severe Dexamethasone and remdesivir initiated 01/08 Consider Actemra if does not show significant improvement in the next 24 hours and no evidence of non-Covid infection Check MRSA and bacterial antigens Oxygen therapy as needed to maintain saturations, weaning as able -presently requiring 40 L flow with 100% Respiratory therapy to follow Pulmonary toilet with Spiriva and Advair CTA did not show evidence of PE, demonstrates some chronic emphysematous changes and fibrosis in addition to ground glass opacities Blood cultures were collected Procalcitonin 0.23 D-dimer 2.29 CRP 101.8 Vitamin C, vitamin D, zinc Status: Acute (2) Asthma: Status: Chronic (3) Diabetes mellitus with hyperglycemia, without long-term current use of insulin: With steroids will add insulin coverage Hold home janumet Status: Chronic Qualifiers: Diabetes mellitus type: type 2 Qualified Code(s): E11.65 - Type 2 diabetes mellitus with hyperglycemia (4) Adult onset hypothyroidism: Continue home levothyroxine Status: Chronic (5) Essential (primary) hypertension: Continue home metoprolol at half usual dose Status: Chronic Additional A&P Information Inpatient admission ICU care Replace potassium Continue home tricor Continue home gabapentin Continue home singulair Lovenox for DVT prophylaxis Protonix for GI prphylaxis Kimble Supportive care otherwise Disposition will ultimately depend on clinical course Findings, concerns and plans discussed briefly with patient, she was given an opportunity to ask questions Full code Attestations Medical Necessity Statement*: Anticipate stay greater than 2 midnights in patient with covid high flow oxygen supplementation and other care as noted above. Needs ICU level care. At high risk of rapid clinical decline. Coding Level of Care Code Acute Senior Insight Manager [employer] for [facility] Diagnoses COVID-19 U07.1 Asthma J45.909 Diabetes mellitus with hyperglycemia, without long-term current use of insulin E11.65 Diabetes mellitus type: type 2 Adult onset hypothyroidism E03.8 Essential (primary) hypertension I10
--- NOTE | 2021-01-08 16:44 | PC.NURSE ---
called to give report. room not clean
--- NOTE | 2021-01-08 17:10 | PC.NURSE ---
report to Miesha MCWILLIAMS in ICU.
[2021-01-08 19:05] LABS: Troponin T (5th) Once 12 ng/L (0-10)
[2021-01-08 20:09] LABS: Creatine Phosphokinase 43 U/L (26-192); Lactate Dehydrogenase 844 U/L (135-214); Magnesium 1.9 mg/dL (1.7-2.3); NT Pro B Type Natriuretic Pept 561 pg/mL (0-125); Phosphorus 1.9 mg/dL (2.5-4.5)
[2021-01-08 20:24] LABS: Ferritin 2219 ng/mL (15-150)
[2021-01-08 20:38] LABS: INR 1.09 (0.8-1.2)
[2021-01-08 20:43] LABS: Fibrinogen 568 mg/dL (174-498)
[2021-01-09] VITALS (29 sets, daily range): BP systolic 109–166; BP diastolic 66–94; PULSE 83–118; RESP 16–32; TEMP 36.4–36.8; O2SAT 79–99
--- NOTE | 2021-01-09 00:08 | PC.NURSE ---
report to Nitza MCWILLIAMS
--- NOTE | 2021-01-09 03:07 | PC.NURSE ---
450cc dark sandra urine drained from vanegas bag
--- NOTE | 2021-01-09 03:12 | PC.NURSE ---
no change from initial dc assessment
[2021-01-09] MEDS: dexamethasone 10 mg/mL INJ 6 MG IVP (05:46)
[2021-01-09] MEDS: sodium chlor 0.45% +KCl 20 mEq 20 MEQ/1,000 ML BAG 50 MEQ IV (06:00)
[2021-01-09] MEDS: remdesivir 100 MG in sodium chloride 0.9% (100 ml) 100 ML IV (06:08)
[2021-01-09] MEDS: fenofibrate 145 mg Tablet PO (06:09)
[2021-01-09 07:01] LABS: Hematocrit 40.6 % (37.0-47.0); Hemoglobin 12.7 g/dL (11.5-15.3); Mean Corpuscular HGB Conc 31.3 g/dL (30.0-36.0); Mean Corpuscular Hemoglobin 27.7 pg (28.0-34.0); Mean Corpuscular Volume 88.6 fL (81-99); Mean Platelet Volume 10.4 fL (7.4-10.4); Platelet Count 383 10^3/cmm (130-400); Red Blood Count 4.58 10^6/uL (4.1-5.3); Red Cell Distribution Width 13.7 % (12.1-15.1); White Blood Count 7.8 10^3/uL (4.0-10.0)
[2021-01-09 07:31] LABS: Alanine Aminotransferase 10 U/L (0-33); Albumin Level 3.4 g/dL (3.5-5.2); Alkaline Phosphatase 83 IU/L (35-105); Blood Urea Nitrogen 14 mg/dL (8-23); C Reactive Protein 60.2 mg/L (0.0-4.9); Calcium 8.7 mg/dL (8.5-10.5); Carbon Dioxide 22 mmol/L (22-29); Chloride 96 mmol/L (98-107); Creatinine Clr Calc Pharmacy 156.0914; Globulin 3.7 g/dL (1.3-4.6); Glomerular Filtration Rate 161.7 mL/min (90-130); Glucose 123 mg/dL (65-115); Magnesium 1.9 mg/dL (1.7-2.3); Osmolality Calculated 280 mOsm/kg (285-295); Phosphorus 1.4 mg/dL (2.5-4.5); Sodium 134 mmol/L (136-145); Total Bilirubin 0.5 mg/dL (0.15-1.2); Total Protein 7.1 g/dL (6.6-8.7)
[2021-01-09 07:33] LABS: Procalcitonin 0.21 ng/mL (0-0.5)
[2021-01-09 07:48] LABS: Anion Gap 19.5 (5-19); Aspartate Amino Transferase 35 U/L (0-32); Potassium 3.5 mmol/L (3.5-5.1)
[2021-01-09] MEDS: gabapentin 400 mg Capsule PO ×3 (09:38→21:42)
[2021-01-09] MEDS: levothyroxine 75 mcg Tablet PO (09:39)
[2021-01-09] MEDS: zinc gluconate 50 mg Tablet PO ×2 (09:39→12:54)
[2021-01-09] MEDS: metoprolol succinate ER (24 HR) 50 mg Tablet PO (09:41)
[2021-01-09] MEDS: pantoprazole 40 mg SDV IVP (09:42)
[2021-01-09 10:08] LABS: Slide Review Slide Review Perform
[2021-01-09 10:12] LABS: Absolute Segmented Neutrophil 5.9 10/cmm (1.6-7.1); Band Neutrophils Absolute 0.3 10^3/cmm (0.0-1.2); Eosinophils 0 %; Lymphocytes 17 %; Lymphocytes Absolute 1.3 10^3/cmm (1.2-3.4); Monocytes Absolute 0.2 10^3/cmm (0.1-0.6); Segmented Neutrophils 75 %; Total Cells Counted 100 (0-100)
[2021-01-09 10:13] LABS: Absolute Neutrophil 6.2 10^3/cmm (1.4-6.5); Anisocytosis Trace; Platelet Estimate Normal (Normal); Toxic Granulation 1+
[2021-01-09] MEDS: cholecalciferol (vitamin D3) 1,000 unit Tablet 2000 UNIT PO (12:54)
[2021-01-09] MEDS: ascorbic acid 500 mg Tablet 1000 MG PO ×2 (12:54→18:26)
[2021-01-09 15:23] LABS: Glucose Point of Care 248 mg/dL (70-110)
[2021-01-09] MEDS: cefTRIAXone 1,000 MG in sodium chloride 0.9% (plus) 50 ML 100 MG IV (15:23)
[2021-01-09 16:26] LABS: Glucose Point of Care 157 mg/dL (70-110)
[2021-01-09] MEDS: azithromycin 500 MG in sodium chloride 0.9% 250 ML 250 MG IV (16:41)
--- NOTE | 2021-01-09 16:46 | PM.PN ---
Subjective Subjective: Interval history: This morning patient was seen, currently she is denying any chest pain, is having some shortness of breath, no fevers, has a persistent cough, has not received the Covid vaccine, denies any cardiovascular history, no history of CHF, no history of strokes, is a former smoker, Vitals/I&O/Wt Last Vital Signs Temp 97.6 F 01/09/21 12:00 Pulse 95 01/09/21 12:00 Resp 18 01/09/21 12:00 BP 132/83 01/09/21 12:00 Pulse Ox 87 L 01/09/21 12:00 01/09/21 01/09/21 01/09/21 06:59 14:59 22:59 Intake Total 100 / 100 50 / 150 Output Total 600 / 1000 Balance -600 / -1000 100 / 100 50 / 150 Weight last 48 hrs Weight 77.111 kg Physical Exam Const: COMMON NORMALS: no acute distress and patient oriented x3 HENMT: COMMON NORMALS: normocephalic HEAD & SCALP: normocephalic Resp: COMMON NORMALS: normal respiratory effort and No retractions AUSCULTATION: diminished lung sounds diffuse Cardio: COMMON NORMALS: regular rate, regular rhythm, S1 normal heart sound present and S2 normal heart sound present RATE: regular rate RHYTHM: regular rhythm HEART SOUNDS: S1 normal heart sound present and S2 normal heart sound present GI: COMMON NORMALS: Normal to inspection, nondistended, normoactive bowel sounds present, Soft to palpation and non-tender PALPATION: Yes Soft to palpation Extremity: COMMON NORMALS: no pedal edema Neuro: COMMON NORMALS: patient oriented x3 Psych: COMMON NORMALS: mental status grossly normal Urinary Catheter Management^: Kimble: Cath Placed During This Visit: yes Reason for Continuing Indwelling Catheter: Accurate Measurement of Urinary Output in Critically Ill Patients Urinary Catheter Date of Insertion: 01/08/21 Data : 01/09/21 06:35 01/09/21 06:35 Micro: Microbiology 01/08/21 04:40 Blood Culture - Preliminary Blood NEGATIVE TO DATE 01/08/21 05:00 Blood Culture - Preliminary Blood NEGATIVE TO DATE A&P Assessment and plan (1) COVID-19: Severe COVID-19 pneumonia, with acute respiratory failure Dexamethasone and remdesivir initiated 01/08 Start Actemra,, no significant signs of bacterial infection, AST 35, ALT 10, creatinine 0.4 Continue Rocephin and azithromycin Check MRSA and bacterial antigens Oxygen therapy as needed to maintain saturations, weaning as able -presently requiring 40 L flow with 100% Respiratory therapy to follow Pulmonary toilet with Spiriva and Advair Vitamin C, zinc, vitamin D CTA did not show evidence of PE, demonstrates some chronic emphysematous changes and fibrosis in addition to ground glass opacities Blood cultures were collected Procalcitonin 0.21 D-dimer 2.29 CRP 101.8 Insulin sliding scale Full code Lovenox for DVT prophylaxis Status: Acute (2) Asthma: Status: Chronic (3) Diabetes mellitus with hyperglycemia, without long-term current use of insulin: Status: Chronic Qualifiers: Diabetes mellitus type: type 2 Qualified Code(s): E11.65 - Type 2 diabetes mellitus with hyperglycemia (4) Adult onset hypothyroidism: Continue home levothyroxine Status: Chronic (5) Essential (primary) hypertension: Continue home metoprolol at half usual dose Status: Chronic Additional A&P Information Inpatient admission Replace potassium Continue home tricor Continue home gabapentin Continue home singulair Lovenox for DVT prophylaxis Protonix for GI prphylaxis Kimble Supportive care otherwise Disposition will ultimately depend on clinical course Findings, concerns and plans discussed briefly with patient, she was given an opportunity to ask questions Full code Attestations Medical Necessity Statement*: Patient requires hospitalization for acute respiratory failure secondary to COVID-19 pneumonia Coding Level of Care Code Acute Furnace Firer for [facility] Diagnoses COVID-19 U07.1 Asthma J45.909 Diabetes mellitus with hyperglycemia, without long-term current use of insulin E11.65 Diabetes mellitus type: type 2 Adult onset hypothyroidism E03.8 Essential (primary) hypertension I10
[2021-01-09] MEDS: enoxaparin 40 mg/0.4 mL Syringe SUBCUT (18:01)
[2021-01-09] MEDS: phosphorus 250 mg Tablet PO (18:03)
[2021-01-09] MEDS: montelukast sodium 10 mg Tablet PO (21:42)
[2021-01-10] VITALS (29 sets, daily range): BP systolic 123–143; BP diastolic 73–85; PULSE 82–112; RESP 20–32; TEMP 36.4–36.7; O2SAT 84–98
[2021-01-10] MEDS: fenofibrate 145 mg Tablet PO (05:25)
[2021-01-10] MEDS: remdesivir 100 MG in sodium chloride 0.9% (100 ml) 100 ML IV (05:25)
[2021-01-10] MEDS: dexamethasone 10 mg/mL INJ 6 MG IVP (05:50)
--- NOTE | 2021-01-10 06:00 | ECG_ITS ---
[facility] Test Date: 2021-01-10 Pat Name: Millie Chery Department: Room: 211 Gender: Female Lieutenant/Deputy: : 1960 Requested By: Jeovanny Sierra Order Number: [id number] Reading MD: TAMMY BRIAN Measurements Intervals [place] Rate: 94 P: 60 MT: 186 QRS: 46 QRSD: 101 T: 55 QT: 360 QTc: 451 Interpretive Statements SINUS RHYTHM Compared to ECG 01/08/2021 05:53:31 Sinus tachycardia no longer present T-wave abnormality no longer present Electronically Signed On 01-10-2021 23:37:13 CDT by TAMMY BRIAN [email or web address] acquired by [id number]
[2021-01-10 06:12] LABS: Basophils % 0.4 %; Eosinophils % 0.4 %; Hematocrit 36.4 % (37.0-47.0); Hemoglobin 11.7 g/dL (11.5-15.3); Lymphocytes # 0.9 10^3/uL (0.8-4.8); Lymphocytes % 16.4 %; Mean Corpuscular HGB Conc 32.1 g/dL (30.0-36.0); Mean Corpuscular Volume 87.1 fL (81-99); Mean Platelet Volume 9.6 fL (7.4-10.4); Monocytes # 0.3 10^3/uL (0.2-0.9); Monocytes % 5.5 %; Neutrophils # 3.81 10^3/uL (1.8-7.7); Neutrophils % 72.9 %; Nucleated Red Blood Cells % 0 %; Platelet Count 352 10^3/cmm (130-400); Red Blood Count 4.18 10^6/uL (4.1-5.3); Red Cell Distribution Width 13.9 % (12.1-15.1); White Blood Count 5.2 10^3/uL (4.0-10.0)
[2021-01-10 06:42] LABS: Alanine Aminotransferase < 5 U/L (0-33); Albumin Level 3.3 g/dL (3.5-5.2); Alkaline Phosphatase 92 IU/L (35-105); Anion Gap 16.5 (5-19); Aspartate Amino Transferase 32 U/L (0-32); Blood Urea Nitrogen 11 mg/dL (8-23); Calcium 8.2 mg/dL (8.5-10.5); Carbon Dioxide 25 mmol/L (22-29); Chloride 101 mmol/L (98-107); Glomerular Filtration Rate 161.7 mL/min (90-130); Glucose 95 mg/dL (65-115); Osmolality Calculated 287 mOsm/kg (285-295); Phosphorus 2.3 mg/dL (2.5-4.5); Potassium 3.5 mmol/L (3.5-5.1); Sodium 139 mmol/L (136-145); Total Bilirubin 0.5 mg/dL (0.15-1.2); Total Protein 6.3 g/dL (6.6-8.7)
[2021-01-10 06:47] LABS: Creatinine Clr Calc Pharmacy 156.0914
[2021-01-10 06:54] LABS: D Dimer 2.42 ug/mIFEU (0-0.59)
[2021-01-10 06:55] LABS: NT Pro B Type Natriuretic Pept 215 pg/mL (0-125); Procalcitonin 0.15 ng/mL (0-0.5)
[2021-01-10] MEDS: lanolin oint 7 gm 1 APPLIC TOPICAL (07:00)
--- NOTE | 2021-01-10 07:00 | XRR_ITS ---
PROCEDURE INFORMATION: Exam: XR Chest Exam date and time: 01/10/2021 7:00 AM Age: 60 years old Clinical indication: Dyspnea; Additional info: SOB TECHNIQUE: Imaging protocol: XR of the chest. Views: 1 view. COMPARISON: CR (CHEST, ) 01/08/2021 5:21 AM FINDINGS: Lungs: Extensive mixed interstitial/alveolar opacities throughout both lungs, confluent in the right lung base laterally, overall increased from prior study. These may represent any combination of pulmonary edema and multifocal pneumonia. Pleural spaces: No visible pneumothorax. Possible small right pleural effusion. Heart/Mediastinum: Heart size within normal limits. Bones/joints: No emergent findings identified. XR/XR chest 1V portable [id number] IMPRESSION: 1. Extensive mixed interstitial/alveolar opacities throughout both lungs, confluent in the right lung base laterally, overall increased from prior study. These may represent any combination of pulmonary edema and multifocal pneumonia.
[2021-01-10] MEDS: levothyroxine 75 mcg Tablet PO (09:04)
[2021-01-10] MEDS: cholecalciferol (vitamin D3) 1,000 unit Tablet 2000 UNIT PO (09:04)
[2021-01-10] MEDS: ascorbic acid 500 mg Tablet 1000 MG PO ×2 (09:05→18:45)
[2021-01-10] MEDS: gabapentin 400 mg Capsule PO ×3 (09:05→21:37)
[2021-01-10] MEDS: potassium chloride ER 20 mEq Tablet 40 MEQ PO (09:05)
[2021-01-10] MEDS: metoprolol succinate ER (24 HR) 50 mg Tablet PO (09:05)
[2021-01-10] MEDS: phosphorus 250 mg Tablet PO ×2 (09:05→18:45)
[2021-01-10 09:29] LABS: Glucose Point of Care 113 mg/dL (70-110)
[2021-01-10 09:29] LABS: Glucose Point of Care 107 mg/dL (70-110)
[2021-01-10 09:29] LABS: Glucose Point of Care 133 mg/dL (70-110)
[2021-01-10] MEDS: FUROsemide 10 mg/mL SDV 4mL 40 MG IVP (10:55)
[2021-01-10] MEDS: pantoprazole 40 mg SDV IVP (10:55)
--- NOTE | 2021-01-10 11:53 | P.PN_ITS ---
Subjective Subjective: Interval history: Patient was seen this morning, she is lying on her side, she tells me that she does get short of breath with minimal exertion, has a persistent cough, no nausea, no vomiting, no chest pain, currently on 50 L, 70% FiO2 Vitals/I&O/Wt Last Vital Signs Temp 97.5 F L 01/10/21 08:00 Pulse 111 H 01/10/21 11:34 Resp 26 H 01/10/21 11:34 BP 123/75 01/10/21 08:00 Pulse Ox 88 L 01/10/21 11:34 01/09/21 01/10/21 01/10/21 22:59 06:59 14:59 Intake Total 1022.5 / 1122.5 700 / 1822.5 Output Total 900 / 900 550 / 550 Balance 1022.5 / 1122.5 -200 / 922.5 -550 / -550 Physical Exam Const: COMMON NORMALS: no acute distress and patient oriented x3 Resp: COMMON NORMALS: normal respiratory effort, No retractions and No use of accessory muscles OTHER: Decreased breath sounds in all lung ramos Cardio: COMMON NORMALS: regular rate, regular rhythm, S1 normal heart sound present and S2 normal heart sound present RATE: regular rate RHYTHM: regular rhythm HEART SOUNDS: S1 normal heart sound present and S2 normal heart sound present GI: COMMON NORMALS: Normal to inspection, nondistended, normoactive bowel sounds present, Soft to palpation, non-tender and No hepatosplenomegaly present PALPATION: Yes Soft to palpation and Yes No hepatosplenomegaly present Neuro: COMMON NORMALS: patient oriented x3 Psych: COMMON NORMALS: mental status grossly normal Urinary Catheter Management^: Kimble: Cath Placed During This Visit: yes Reason for Continuing Indwelling Catheter: Other Urinary Catheter Date of Insertion: 01/08/21 Data : 01/10/21 05:28 01/10/21 05:28 A&P Assessment and plan (1) COVID-19: Severe COVID-19 pneumonia, with acute respiratory failure Dexamethasone and remdesivir initiated 01/08 Status post Tocilizumab 01/09 Continue Rocephin and azithromycin Check MRSA and bacterial antigens Oxygen therapy as needed to maintain saturations, weaning as able -presently requiring 40 L flow with 100% Respiratory therapy to follow Pulmonary toilet with Spiriva and Advair Vitamin C, zinc, vitamin D CTA did not show evidence of PE, demonstrates some chronic emphysematous changes and fibrosis in addition to ground glass opacities Blood cultures unremarkable so far Insulin sliding scale CRP trending down to 39, BNP 215, pro-Gagan 0.15 Patient is a high risk of intubation in the next 24 to 48 hours Full code Lovenox for DVT prophylaxis Plan for today, continue oxygen therapy, will do look cardiac echo, one dose of 40 mg Lasix, monitor respiratory status closely, patient is high risk of being intubated in the next 24 to 48 hours Status: Acute (2) Asthma: Status: Chronic (3) Diabetes mellitus with hyperglycemia, without long-term current use of insulin: Status: Chronic Qualifiers: Diabetes mellitus type: type 2 Qualified Code(s): E11.65 - Type 2 diabetes mellitus with hyperglycemia (4) Adult onset hypothyroidism: Continue home levothyroxine Status: Chronic (5) Essential (primary) hypertension: Continue home metoprolol at half usual dose Status: Chronic Additional A&P Information Inpatient admission Replace potassium Continue home tricor Continue home gabapentin Continue home singulair Lovenox for DVT prophylaxis Protonix for GI prphylaxis Kimble Supportive care otherwise Disposition will ultimately depend on clinical course Findings, concerns and plans discussed briefly with patient, she was given an opportunity to ask questions Full code Attestations Medical Necessity Statement*: Patient requires hospitalization for COVID-19 pneumonia, acute respiratory failure Coding Level of Care Code Acute Day Care Supervisor for [facility] Diagnoses COVID-19 U07.1 Asthma J45.909 Diabetes mellitus with hyperglycemia, without long-term current use of insulin E11.65 Diabetes mellitus type: type 2 Adult onset hypothyroidism E03.8 Essential (primary) hypertension I10
[2021-01-10] MEDS: acetaminophen 325 mg Tablet 650 MG PO (12:14)
[2021-01-10 12:28] LABS: Glucose Point of Care 231 mg/dL (70-110)
[2021-01-10] MEDS: cefTRIAXone 1,000 MG in sodium chloride 0.9% (plus) 50 ML 100 MG IV (14:40)
[2021-01-10 15:37] LABS: ABG PCO2 33.1 mmHg (35-45); ABG PH Result 7.53 (7.35-7.45); Arterial Blood Gas Hematocrit 40.7 % (37-47); Base Excess ABG 4.9 mmol/L (-2.0-2.0); Blood Gas Allen Test Pos; Blood Gas Operator Identificat MONRO; Blood Gas Sample Site Radial, left; Blood Gas Sample Type Arterial; HCO3 ABG 27.4 mmol/L (22-26); Oxygen Device NC; PO2 ABG 72.7 mmHg (80.0-100.0)
[2021-01-10] MEDS: azithromycin 500 MG in sodium chloride 0.9% 250 ML 250 MG IV (16:15)
[2021-01-10] MEDS: TRAMadol 50 mg Tablet PO (18:45)
[2021-01-10] MEDS: enoxaparin 40 mg/0.4 mL Syringe SUBCUT (18:45)
[2021-01-10] MEDS: montelukast sodium 10 mg Tablet PO (21:37)
[2021-01-10 21:48] LABS: Glucose Point of Care 113 mg/dL (70-110)
[2021-01-11] VITALS (14 sets, daily range): BP systolic 115–148; BP diastolic 65–90; PULSE 66–101; RESP 15–24; TEMP 36.4–37.2; O2SAT 88–98
[2021-01-11] MEDS: dexamethasone 10 mg/mL INJ 6 MG IVP (05:44)
[2021-01-11] MEDS: remdesivir 100 MG in sodium chloride 0.9% (100 ml) 100 ML IV (05:51)
[2021-01-11] MEDS: fenofibrate 145 mg Tablet PO (05:52)
--- NOTE | 2021-01-11 06:00 | ECG_ITS ---
[facility] Test Date: 2021-01-11 Pat Name: Millie Chery Department: Room: 211 Gender: Female Electroneurodiagnostic Technologist: : 1960 Requested By: Jeovanny Sierra Order Number: [id number] Reading MD: TAMMY BRIAN Measurements Intervals [place] Rate: 86 P: 53 CT: 195 QRS: 44 QRSD: 104 T: 62 QT: 390 QTc: 467 Interpretive Statements SINUS RHYTHM Compared to ECG 01/10/2021 05:43:25 No significant changes Electronically Signed On 01-11-2021 22:38:18 CDT by TAMMY BRIAN [id number]
[2021-01-11 08:00] LABS: Glucose Point of Care 119 mg/dL (70-110)
[2021-01-11 08:00] LABS: Glucose Point of Care 129 mg/dL (70-110)
--- NOTE | 2021-01-11 08:00 | USCV_ITS ---
Millie Chery Age: 60 Gender: F : 1960 Exam Date: 01/11/2021 13:21 Ordering Phys: Jeovanny Sierra MD Technologist: Exam [place] [facility] [place]: Shortness of breath BP: 121 / 88 HR: 88 Rhythm: Sinus Technical Quality: Adequate MEASUREMENTS (Male / Female) Normal Values 2D ECHO LV Diastolic Diameter PLAX 4.2 cm 4.2 - 5.9 / 3.9 - 5.3 cm LV Systolic Diameter PLAX 2.6 cm IVS Diastolic Thickness 0.9 cm 0.6 - 1.0 / 0.6 - 0.9 cm IVS Systolic Thickness 1.3 cm LVPW Diastolic Thickness 0.9 cm 0.6 - 1.0 / 0.6 - 0.9 cm LVPW Systolic Thickness 1.4 cm LVOT Diameter 2.0 cm LV Ejection Fraction 2D Teich 68.2 % LV Ejection Fraction MOD 2C 60.9 % LV Ejection Fraction 2C AL 61.5 % LA Diameter 3.4 cm LA Width 4.0 cm LA Height 4.1 cm RA Width 3.1 cm RA Height 3.8 cm Aorta at Sinotubular Diameter 2.4 cm M-MODE LV Diastolic Diameter MM 5.6 cm 4.2 - 5.9 / 3.9 - 5.3 cm LV Systolic Diameter MM 4.0 cm LV Ejection Fraction MM Teich 54.1 % IVS Diastolic Thickness MM 1.0 cm 0.6 - 1.0 / 0.6 - 0.9 cm IVS Systolic Thickness MM 1.2 cm LVPW Diastolic Thickness MM 1.4 cm 0.6 - 1.0 / 0.6 - 0.9 cm LVPW Systolic Thickness MM 1.8 cm RV Diastolic Diameter MM 1.5 cm MV E Point Septal Separation 1.5 cm DOPPLER AV Peak Velocity 123.0 cm/s LVOT Peak Velocity 91.0 cm/s AV Area Cont Eq vti 2.8 cm squared AV Area Cont Eq pk 2.3 cm squared MV Area PHT 5.0 cm squared Mitral E to A Ratio 0.8 MV E' Velocity 31.0 cm/s Mitral E to MV E' Ratio 8.8 Mitral E to LV E' Lateral Ratio 9.3 Mitral E to LV E' Septal Ratio 8.6 TR Peak Velocity 241.3 cm/s TR Peak Gradient 23.3 mmHg TV Peak E Velocity 79.0 cm/s Right Atrial Pressure 3.0 mmHg Pulmonary Artery Systolic Pressu 26.3 mmHg PV Peak Velocity 100.0 cm/s FINDINGS Left Ventricle Normal left ventricular size, systolic function and wall thickness, with no regional wall motion abnormalities. Left ventricular ejection fraction is estimated at 55 %. Grade I diastolic dysfunction (abnormal relaxation filling pattern), normal to mildly elevated filling pressures. Abnormal septal motion consistent with conduction abnormality. Right Ventricle Normal right ventricular size and systolic function. Right ventricular systolic pressure 39 mmHg. Right Atrium Normal right atrial size. Left Atrium Left atrium not well visualized. Probably normal left atrial size. Mitral Valve Structurally normal mitral valve. Mild mitral valve regurgitation. Aortic Valve Structurally normal trileaflet aortic valve. No aortic valve stenosis. No aortic valve regurgitation. Tricuspid Valve Structurally normal tricuspid valve. Mild tricuspid valve regurgitation. Pulmonic Valve Pulmonic valve not well visualized. No pulmonary valve stenosis. No significant pulmonary valve regurgitation. Pericardium No pericardial effusion. Aorta Normal-sized aortic root. CONCLUSIONS 1. Normal left ventricular size, systolic function and wall thickness, with no regional wall motion abnormalities. Left ventricular ejection fraction is estimated at 55 %. Grade I diastolic dysfunction (abnormal relaxation filling pattern), normal to mildly elevated filling pressures. 2. Normal right ventricular size and systolic function. 3. Mild mitral and tricuspid valve regurgitation. 4. Mild pulmonary hypertension with pulmonary artery pressure estimated at 39 mmHg. 5. When compared to previous echocardiogram dated 07/05/2017, there may not have been any significant change. Chloe Pham MD (Electronically Signed) Final Date: 11 January 2021 18:07 S
[2021-01-11 08:20] LABS: Basophils % 0.4 %; Eosinophils % 0.6 %; Hematocrit 39.9 % (37.0-47.0); Hemoglobin 12.5 g/dL (11.5-15.3); Lymphocytes # 0.9 10^3/uL (0.8-4.8); Lymphocytes % 13.6 %; Mean Corpuscular HGB Conc 31.3 g/dL (30.0-36.0); Mean Corpuscular Hemoglobin 27.7 pg (28.0-34.0); Mean Corpuscular Volume 88.3 fL (81-99); Mean Platelet Volume 9.8 fL (7.4-10.4); Monocytes # 0.3 10^3/uL (0.2-0.9); Monocytes % 4.4 %; Neutrophils # 5.25 10^3/uL (1.8-7.7); Neutrophils % 76.2 %; Nucleated Red Blood Cells % 0 %; Platelet Count 362 10^3/cmm (130-400); Red Blood Count 4.52 10^6/uL (4.1-5.3); Red Cell Distribution Width 13.7 % (12.1-15.1); White Blood Count 6.9 10^3/uL (4.0-10.0)
[2021-01-11 08:22] LABS: INR 1.39 (0.8-1.2)
[2021-01-11 08:32] LABS: D Dimer 7.85 ug/mIFEU (0-0.59)
[2021-01-11 08:41] LABS: Alanine Aminotransferase 7 U/L (0-33); Albumin Level 3.3 g/dL (3.5-5.2); Alkaline Phosphatase 88 IU/L (35-105); Aspartate Amino Transferase 19 U/L (0-32); Blood Urea Nitrogen 13 mg/dL (8-23); C Reactive Protein 14.5 mg/L (0.0-4.9); Calcium 8.1 mg/dL (8.5-10.5); Carbon Dioxide 24 mmol/L (22-29); Chloride 100 mmol/L (98-107); Globulin 3.2 g/dL (1.3-4.6); Glomerular Filtration Rate 161.7 mL/min (90-130); Glucose 120 mg/dL (65-115); Magnesium 1.9 mg/dL (1.7-2.3); Osmolality Calculated 291 mOsm/kg (285-295); Sodium 140 mmol/L (136-145); Total Bilirubin 0.5 mg/dL (0.15-1.2); Total Protein 6.5 g/dL (6.6-8.7)
[2021-01-11 08:43] LABS: Creatinine Clr Calc Pharmacy 156.0914
[2021-01-11 08:44] LABS: Anion Gap 19.2 (5-19); Potassium 3.2 mmol/L (3.5-5.1)
[2021-01-11 08:46] LABS: NT Pro B Type Natriuretic Pept 282 pg/mL (0-125); Procalcitonin 0.09 ng/mL (0-0.5)
[2021-01-11] MEDS: metoprolol succinate ER (24 HR) 50 mg Tablet PO (09:14)
[2021-01-11] MEDS: cholecalciferol (vitamin D3) 1,000 unit Tablet 2000 UNIT PO (09:14)
[2021-01-11] MEDS: gabapentin 400 mg Capsule PO ×3 (09:14→21:03)
[2021-01-11] MEDS: ascorbic acid 500 mg Tablet 1000 MG PO ×2 (09:14→17:39)
[2021-01-11] MEDS: phosphorus 250 mg Tablet PO ×2 (09:14→17:39)
[2021-01-11] MEDS: zinc gluconate 50 mg Tablet PO (09:15)
[2021-01-11] MEDS: pantoprazole 40 mg SDV IVP (09:15)
[2021-01-11] MEDS: TRAMadol 50 mg Tablet PO ×2 (09:15→14:43)
[2021-01-11] MEDS: levothyroxine 75 mcg Tablet PO (09:15)
--- NOTE | 2021-01-11 09:53 | PC.CHAP ---
Pastoral Care Encounter/Spiritual Assessment Type of Contact [] Declined flat knitter visit [] Patient/Family/Request visit [] Outpatient visit [] Follow-up visit [] Physician referral [] Code/Alert [x] Routine visit [] Staff referral [] Actively dying [] Patient sleeping [] Family support [] [] Out of room [] Palliative care [] [] Receiving care in room [] Pre-surgical visit [] Trauma [] Long length of stay [] ICU visit [x] Other:covid Relational/Emotional Strength [] Patient feels connected with others/family/visitors/staff [] Distress [] Loneliness/isolation [] Abandonment Spirituality of Patient [] Person of Melissa [] Attends Presybeterian of their Melissa [] Believes in Prayer [] Reads Bible or Zoroastrianism materials [] There are Spiritual issues to be addressed Case Worker Interventions [x] Prayer [] Active listening [] Non-anxious presence [] Spiritual/emotional support [] Crisis/trauma care [] Spiritual counseling [] Bereavement support [] Provided bereavement packet [] Provided Bible/devotional materials [] Provided toy/stuffed animal, coloring book to patient or family member [] Provided Communion [] Anointing/[place] [] Salvation [x] Completed spiritual assessment [] Other: Impact on Illness or Injury [] Angry [] Fearful [] Anxious [] Often cries [] Exhaustion [] Unable to work [] Unable to attend buddhist [] Unable to walk/stand [] Unable to read [] Unable to drive [] Unable to eat/drink [] Unable to sleep [] Unable to be with family [] Patient intubated [] Other: Summary Time spent with patient
--- NOTE | 2021-01-11 11:41 | P.PN_ITS ---
Subjective Subjective: Interval history: Patient was seen this morning, she remains afebrile overnight, she tells me that she is feeling a lot better, her oxygen requirements have decreased to 15 L, 60% FiO2 Vitals/I&O/Wt Last Vital Signs Temp 98.1 F 01/11/21 00:00 Pulse 91 01/11/21 10:59 Resp 18 01/11/21 10:59 BP 140/90 01/11/21 08:00 Pulse Ox 93 01/11/21 10:59 01/10/21 01/11/21 01/11/21 22:59 06:59 14:59 Intake Total 780 / 780 460 / 460 Output Total 500 / 2150 Balance 780 / -870 -500 / -1370 460 / 460 Physical Exam Const: COMMON NORMALS: no acute distress and patient oriented x3 Resp: COMMON NORMALS: normal respiratory effort, No retractions, No use of accessory muscles and clear to auscultation bilaterally AUSCULTATION: clear to auscultation bilaterally Cardio: COMMON NORMALS: regular rate, regular rhythm, S1 normal heart sound present and S2 normal heart sound present RATE: regular rate RHYTHM: regular rhythm HEART SOUNDS: S1 normal heart sound present and S2 normal heart sound present GI: COMMON NORMALS: Normal to inspection, nondistended, normoactive bowel sounds present, Soft to palpation and non-tender PALPATION: Yes Soft to palpation Extremity: COMMON NORMALS: no pedal edema Neuro: COMMON NORMALS: patient oriented x3 Psych: COMMON NORMALS: mental status grossly normal Urinary Catheter Management^: Kimble: Cath Placed During This Visit: yes Reason for Continuing Indwelling Catheter: Accurate Measurement of Urinary Output in Critically Ill Patients Urinary Catheter Date of Insertion: 01/08/21 Data : 01/11/21 07:15 01/11/21 07:15 Micro: Microbiology 01/10/21 06:00 MRSA Culture - Final Nose 01/10/21 06:00 Bacterial Antigens - Final Urine,Voided A&P Assessment and plan (1) COVID-19: Severe COVID-19 pneumonia, with acute respiratory failure Dexamethasone and remdesivir initiated 01/08 Status post Tocilizumab 01/09 Continue Rocephin and azithromycin Check MRSA and bacterial antigens Wean oxygen as tolerated, currently down to 50 L 60% FiO2 Respiratory therapy to follow Pulmonary toilet with Spiriva and Advair Vitamin C, zinc, vitamin D CTA did not show evidence of PE, demonstrates some chronic emphysematous changes and fibrosis in addition to ground glass opacities Blood cultures unremarkable so far Insulin sliding scale D-dimer 7.85, CRP 14.5, pro-Gagan 0.09, BNP 282 Patient is a high risk of intubation in the next 24 to 48 hours Full code Lovenox for DVT prophylaxis Plan for today, wean oxygen therapy, hold off on diuresis, continue PT OT, Status: Acute (2) Asthma: Status: Chronic (3) Diabetes mellitus with hyperglycemia, without long-term current use of insulin: Status: Chronic Qualifiers: Diabetes mellitus type: type 2 Qualified Code(s): E11.65 - Type 2 diabetes mellitus with hyperglycemia (4) Adult onset hypothyroidism: Continue home levothyroxine Status: Chronic (5) Essential (primary) hypertension: Continue home metoprolol at half usual dose Status: Chronic Additional A&P Information Inpatient admission Replace potassium Continue home tricor Continue home gabapentin Continue home singulair Lovenox for DVT prophylaxis Protonix for GI prphylaxis Kimble Supportive care otherwise Disposition will ultimately depend on clinical course Findings, concerns and plans discussed briefly with patient, she was given an opportunity to ask questions Full code Attestations Medical Necessity Statement*: Patient requires hospitalization due to COVID-19 pneumonia Coding Level of Care Code Acute Consulting Psychiatrist for [facility] Diagnoses COVID-19 U07.1 Asthma J45.909 Diabetes mellitus with hyperglycemia, without long-term current use of insulin E11.65 Diabetes mellitus type: type 2 Adult onset hypothyroidism E03.8 Essential (primary) hypertension I10
--- NOTE | 2021-01-11 13:39 | PC.SOCIAL ---
IMM update IMM not updated due to patient not dc in the next 48 hours.
[2021-01-11 13:47] LABS: Glucose Point of Care 220 mg/dL (70-110)
[2021-01-11] MEDS: potassium chloride oral liq 20 mEq/15 mL UDC 40 MEQ PO (14:43)
[2021-01-11] MEDS: azithromycin 500 MG in sodium chloride 0.9% 250 ML 250 MG IV (15:21)
[2021-01-11] MEDS: cefTRIAXone 1,000 MG in sodium chloride 0.9% (plus) 50 ML 100 MG IV (16:42)
[2021-01-11 17:30] LABS: Glucose Point of Care 138 mg/dL (70-110)
[2021-01-11] MEDS: enoxaparin 40 mg/0.4 mL Syringe SUBCUT (17:39)
[2021-01-11 20:24] LABS: Glucose Point of Care 130 mg/dL (70-110)
[2021-01-11] MEDS: montelukast sodium 10 mg Tablet PO (21:03)
[2021-01-12] VITALS (18 sets, daily range): BP systolic 115–150; BP diastolic 70–106; PULSE 78–121; RESP 17–36; TEMP 35.6–36.9; O2SAT 86–97
[2021-01-12] MEDS: fenofibrate 145 mg Tablet PO (05:32)
[2021-01-12] MEDS: remdesivir 100 MG in sodium chloride 0.9% (100 ml) 100 ML IV (05:32)
[2021-01-12] MEDS: dexamethasone 10 mg/mL INJ 6 MG IVP (05:46)
--- NOTE | 2021-01-12 06:00 | ECG_ITS ---
[facility] Test Date: 2021-01-12 Pat Name: Millie Chery Department: Room: 211 Gender: Female Business Support: : 1960 Requested By: Jeovanny Sierra Order Number: [id number] Jorge Luis MD: Chloe Pham M.D. Measurements Intervals [place] Rate: 93 P: 55 CO: 168 QRS: 45 QRSD: 104 T: 68 QT: 333 QTc: 414 Interpretive Statements SINUS RHYTHM NONSPECIFIC ST & T-WAVE ABNORMALITY Compared to ECG 01/11/2021 04:11:51 T-wave abnormality now present Electronically Signed On 01-13-2021 12:38:43 CDT by Chloe Pham M.D. [id number]
[2021-01-12 06:20] LABS: Glucose Point of Care 115 mg/dL (70-110)
--- NOTE | 2021-01-12 06:35 | PC.NURSE ---
Patient rested well through the night. Oxygen saturations remained mid to high 90's without needing oxygen titrated. Patient remains on HHF 50 flow rate 60 Fio2.
[2021-01-12] MEDS: ascorbic acid 500 mg Tablet 1000 MG PO ×2 (07:42→17:51)
[2021-01-12] MEDS: levothyroxine 75 mcg Tablet PO (07:42)
[2021-01-12] MEDS: gabapentin 400 mg Capsule PO ×3 (07:43→21:48)
[2021-01-12] MEDS: metoprolol succinate ER (24 HR) 50 mg Tablet PO (07:43)
[2021-01-12] MEDS: zinc gluconate 50 mg Tablet PO (07:43)
[2021-01-12] MEDS: cholecalciferol (vitamin D3) 1,000 unit Tablet 2000 UNIT PO (07:43)
[2021-01-12] MEDS: pantoprazole 40 mg SDV IVP (07:43)
[2021-01-12] MEDS: phosphorus 250 mg Tablet PO ×2 (07:43→17:51)
[2021-01-12 08:17] LABS: Basophils % 0.4 %; Eosinophils # 0.1 10^3/uL (0.0-0.8); Eosinophils % 0.8 %; Hematocrit 38.6 % (37.0-47.0); Hemoglobin 12.5 g/dL (11.5-15.3); Lymphocytes % 13.5 %; Mean Corpuscular HGB Conc 32.4 g/dL (30.0-36.0); Mean Corpuscular Hemoglobin 27.7 pg (28.0-34.0); Mean Corpuscular Volume 85.4 fL (81-99); Mean Platelet Volume 9.5 fL (7.4-10.4); Monocytes # 0.3 10^3/uL (0.2-0.9); Monocytes % 3.8 %; Neutrophils % 74.4 %; Nucleated Red Blood Cells % 0 %; Platelet Count 363 10^3/cmm (130-400); Red Blood Count 4.52 10^6/uL (4.1-5.3); Red Cell Distribution Width 13.5 % (12.1-15.1); White Blood Count 7.7 10^3/uL (4.0-10.0)
[2021-01-12 08:34] LABS: INR 1.39 (0.8-1.2)
--- NOTE | 2021-01-12 08:36 | PC.NURSE ---
Assisted pt to BSC. O2 sats 85-87% on 50L 60% heated high flow. Instructed pt to take deep breaths through her nose. Pt came up to 88-89% briefly, then back to 87%. Assisted pt to chair and continued to instruct to deep breathe. Maral, RT, notified that this nurse could not get O2 sats above 87%.
--- NOTE | 2021-01-12 08:40 | PC.NURSE ---
Pt sitting in chair, O2 sats 89% on 50 L, 60% heated high flow.
[2021-01-12 08:44] LABS: NT Pro B Type Natriuretic Pept 231 pg/mL (0-125); Procalcitonin 0.06 ng/mL (0-0.5)
[2021-01-12 08:53] LABS: Slide Review Slide Review Perform
[2021-01-12 08:54] LABS: D Dimer 7.47 ug/mIFEU (0-0.59)
[2021-01-12 08:57] LABS: Alanine Aminotransferase 8 U/L (0-33); Albumin Level 3.5 g/dL (3.5-5.2); Alkaline Phosphatase 92 IU/L (35-105); Anion Gap 18.5 (5-19); Aspartate Amino Transferase 18 U/L (0-32); Blood Urea Nitrogen 9 mg/dL (8-23); C Reactive Protein 6.2 mg/L (0.0-4.9); Carbon Dioxide 24 mmol/L (22-29); Chloride 98 mmol/L (98-107); Creatinine Clr Calc Pharmacy 156.0914; Globulin 2.2 g/dL (1.3-4.6); Glomerular Filtration Rate 161.7 mL/min (90-130); Glucose 136 mg/dL (65-115); Magnesium 1.8 mg/dL (1.7-2.3); Osmolality Calculated 285 mOsm/kg (285-295); Phosphorus 2.4 mg/dL (2.5-4.5); Potassium 3.5 mmol/L (3.5-5.1); Sodium 137 mmol/L (136-145); Total Bilirubin 0.5 mg/dL (0.15-1.2); Total Protein 5.7 g/dL (6.6-8.7)
--- NOTE | 2021-01-12 10:04 | PC.CHAP ---
Pastoral Care Encounter/Spiritual Assessment Type of Contact [] Declined clip loading machine adjuster visit [] Patient/Family/Request visit [] Outpatient visit [] Follow-up visit [] Physician referral [] Code/Alert [x] Routine visit [] Staff referral [] Actively dying [] Patient sleeping [] Family support [] [] Out of room [] Palliative care [] [] Receiving care in room [] Pre-surgical visit [] Trauma [] Long length of stay [] ICU visit [x] Other: covid Relational/Emotional Strength [] Patient feels connected with others/family/visitors/staff [] Distress [] Loneliness/isolation [] Abandonment Spirituality of Patient [] Person of Melissa [] Attends Jainism of their Melissa [] Believes in Prayer [] Reads Bible or Voodoo materials [] There are Spiritual issues to be addressed Welder Interventions [x] Prayer [] Active listening [] Non-anxious presence [] Spiritual/emotional support [] Crisis/trauma care [] Spiritual counseling [] Bereavement support [] Provided bereavement packet [] Provided Bible/devotional materials [] Provided toy/stuffed animal, coloring book to patient or family member [] Provided Communion [] Anointing/[place] [] Salvation [x] Completed spiritual assessment [] Other: Impact on Illness or Injury [] Angry [] Fearful [] Anxious [] Often cries [] Exhaustion [] Unable to work [] Unable to attend sabianist [] Unable to walk/stand [] Unable to read [] Unable to drive [] Unable to eat/drink [] Unable to sleep [] Unable to be with family [] Patient intubated [] Other: Summary Time spent with patient
[2021-01-12] MEDS: potassium chloride ER 20 mEq Tablet 40 MEQ PO (10:36)
[2021-01-12] MEDS: FUROsemide 10 mg/mL SDV 4mL 40 MG IVP (10:36)
[2021-01-12] MEDS: lidocaine 2% viscous 15 ML, aluminum-mag hydrox-simethicon 30 ML, sucralfate oral liq 1 GM PO (10:58)
[2021-01-12] MEDS: metoclopramide 5 mg/mL SDV 2 mL IVP (11:00)
[2021-01-12 12:08] LABS: Glucose Point of Care 265 mg/dL (70-110)
--- NOTE | 2021-01-12 13:15 | P.PN_ITS ---
Subjective Subjective: Interval history: Patient was seen this morning, she is quite nauseous, sitting up the side of the bed, she tells me she did not have any fevers or worsening shortness of breath overnight Vitals/I&O/Wt Last Vital Signs Temp 97.1 F L 01/12/21 12:00 Pulse 104 H 01/12/21 12:00 Resp 22 H 01/12/21 12:00 BP 138/76 01/12/21 12:00 Pulse Ox 91 01/12/21 12:00 01/11/21 01/12/21 01/12/21 22:59 06:59 14:59 Intake Total 660 / 1120 100 / 100 Output Total 900 / 900 300 / 1200 2100 / 2100 Balance -240 / 220 -300 / -80 -1999 / -1999 Physical Exam Const: COMMON NORMALS: no acute distress and patient oriented x3 Resp: COMMON NORMALS: normal respiratory effort, No retractions and No use of accessory muscles AUSCULTATION: diminished lung sounds diffuse Cardio: COMMON NORMALS: regular rate, regular rhythm, S1 normal heart sound present and S2 normal heart sound present RATE: regular rate RHYTHM: regular rhythm HEART SOUNDS: S1 normal heart sound present and S2 normal heart sound present GI: COMMON NORMALS: Normal to inspection, nondistended, normoactive bowel sounds present, Soft to palpation and non-tender PALPATION: Yes Soft to palpation Extremity: COMMON NORMALS: no pedal edema Neuro: COMMON NORMALS: patient oriented x3 Psych: COMMON NORMALS: mental status grossly normal Urinary Catheter Management^: Kimble: Cath Placed During This Visit: yes Reason for Continuing Indwelling Catheter: Accurate Measurement of Urinary Output in Critically Ill Patients Urinary Catheter Date of Insertion: 01/08/21 Data : 01/12/21 07:30 01/12/21 07:30 A&P Assessment and plan (1) COVID-19: Severe COVID-19 pneumonia, with acute respiratory failure Dexamethasone and remdesivir initiated 01/08 Status post Tocilizumab 01/09 Continue Rocephin and azithromycin Check MRSA and bacterial antigens Wean oxygen as tolerated, currently down to 45 L 50% FiO2 Respiratory therapy to follow Pulmonary toilet with Spiriva and Advair Vitamin C, zinc, vitamin D CTA did not show evidence of PE, demonstrates some chronic emphysematous changes and fibrosis in addition to ground glass opacities Blood cultures unremarkable so far Insulin sliding scale D-dimer 7.85, CRP 14.5, pro-Gagan 0.09, BNP 282 Clinically improving Full code Lovenox for DVT prophylaxis Plan for today, wean oxygen therapy, diuresis, PT OT, nausea control Status: Acute (2) Asthma: Status: Chronic (3) Diabetes mellitus with hyperglycemia, without long-term current use of insulin: Status: Chronic Qualifiers: Diabetes mellitus type: type 2 Qualified Code(s): E11.65 - Type 2 diabetes mellitus with hyperglycemia (4) Adult onset hypothyroidism: Continue home levothyroxine Status: Chronic (5) Essential (primary) hypertension: Continue home metoprolol at half usual dose Status: Chronic Additional A&P Information Inpatient admission Replace potassium Continue home tricor Continue home gabapentin Continue home singulair Lovenox for DVT prophylaxis Protonix for GI prphylaxis Kimble Supportive care otherwise Disposition will ultimately depend on clinical course Findings, concerns and plans discussed briefly with patient, she was given an opportunity to ask questions Full code Attestations Medical Necessity Statement*: Patient course hospitalization due to COVID-19 pneumonia Coding Level of Care Code Acute Motor Boss for [facility] Diagnoses COVID-19 U07.1 Asthma J45.909 Diabetes mellitus with hyperglycemia, without long-term current use of insulin E11.65 Diabetes mellitus type: type 2 Adult onset hypothyroidism E03.8 Essential (primary) hypertension I10
[2021-01-12] MEDS: cefTRIAXone 1,000 MG in sodium chloride 0.9% (plus) 50 ML 100 MG IV (15:10)
[2021-01-12] MEDS: azithromycin 500 MG in sodium chloride 0.9% 250 ML 250 MG IV (15:53)
--- NOTE | 2021-01-12 16:07 | PC.NURSE ---
pts mother Karma, updated on patient condition.
--- NOTE | 2021-01-12 16:31 | PC.NURSE ---
This nurse asked patient about the effectiveness of the Reglan, patient stated that it worked well. She had previously stated that Zofran makes her vomit.
[2021-01-12] MEDS: enoxaparin 40 mg/0.4 mL Syringe SUBCUT (17:51)
[2021-01-12 20:21] LABS: Glucose Point of Care 155 mg/dL (70-110)
[2021-01-12] MEDS: TRAMadol 50 mg Tablet PO (21:48)
[2021-01-12] MEDS: montelukast sodium 10 mg Tablet PO (21:48)
[2021-01-13] VITALS (17 sets, daily range): BP systolic 112–147; BP diastolic 61–86; PULSE 70–117; RESP 16–24; TEMP 36.3–37; O2SAT 78–97
[2021-01-13] MEDS: fenofibrate 145 mg Tablet PO (04:58)
[2021-01-13] MEDS: dexamethasone 10 mg/mL INJ 6 MG IVP (05:38)
--- NOTE | 2021-01-13 06:10 | PC.NURSE ---
Patient rested well through the night. No changes to oxygen as HHF remains set at 45/50. Patient had several loose stools.
--- NOTE | 2021-01-13 07:00 | XRR_ITS ---
PROCEDURE INFORMATION: Exam: XR Chest Exam date and time: 01/13/2021 7:00 AM Age: 60 years old Clinical indication: Shortness of breath; Patient HX: Covid f/u. On high flow. ; Additional info: SOB TECHNIQUE: Imaging protocol: XR of the chest. Views: 1 view. COMPARISON: CR (CHEST, ) 01/10/2021 5:40 AM FINDINGS: Lungs: Persistent extensive mixed interstitial and alveolar opacities throughout both lungs. Pleural spaces: Unremarkable. No pleural effusion. No pneumothorax. Heart/Mediastinum: Stable cardiomediastinal silhouette. Bones/joints: Unremarkable. XR/XR chest 1V portable [id number] IMPRESSION: Unchanged appearance of the lungs, which can be seen with pneumonia, pulmonary edema, or a combination of both.
[2021-01-13 07:26] LABS: Hematocrit 41.4 % (37.0-47.0); Hemoglobin 13.1 g/dL (11.5-15.3); Mean Corpuscular HGB Conc 31.6 g/dL (30.0-36.0); Mean Corpuscular Hemoglobin 27.8 pg (28.0-34.0); Mean Corpuscular Volume 87.9 fL (81-99); Mean Platelet Volume 10.5 fL (7.4-10.4); Platelet Count 329 10^3/cmm (130-400); Red Blood Count 4.71 10^6/uL (4.1-5.3); Red Cell Distribution Width 13.5 % (12.1-15.1); White Blood Count 10.6 10^3/uL (4.0-10.0)
[2021-01-13 08:02] LABS: Alanine Aminotransferase 10 U/L (0-33); Albumin Level 3.4 g/dL (3.5-5.2); Alkaline Phosphatase 94 IU/L (35-105); Blood Urea Nitrogen 13 mg/dL (8-23); C Reactive Protein 4.8 mg/L (0.0-4.9); Calcium 8.5 mg/dL (8.5-10.5); Carbon Dioxide 23 mmol/L (22-29); Chloride 96 mmol/L (98-107); Globulin 2.8 g/dL (1.3-4.6); Glucose 155 mg/dL (65-115); Magnesium 1.7 mg/dL (1.7-2.3); Osmolality Calculated 285 mOsm/kg (285-295); Phosphorus 3.2 mg/dL (2.5-4.5); Sodium 136 mmol/L (136-145); Total Bilirubin 0.6 mg/dL (0.15-1.2); Total Protein 6.2 g/dL (6.6-8.7)
[2021-01-13 08:04] LABS: Anion Gap 20.4 (5-19); Potassium 3.4 mmol/L (3.5-5.1)
[2021-01-13 08:05] LABS: Aspartate Amino Transferase 22 U/L (0-32)
[2021-01-13 08:06] LABS: NT Pro B Type Natriuretic Pept 152 pg/mL (0-125); Procalcitonin 0.06 ng/mL (0-0.5)
[2021-01-13 08:11] LABS: Glucose Point of Care 209 mg/dL (70-110)
[2021-01-13 08:17] LABS: Creatine Phosphokinase 24 U/L (26-192)
[2021-01-13 08:24] LABS: Slide Review Slide Review Perform
[2021-01-13 08:26] LABS: Absolute Eosinophils 0.1 10^3/cmm (0.0-0.7); Absolute Segmented Neutrophil 7.7 10/cmm (1.6-7.1); Band Neutrophils Absolute 1.4 10^3/cmm (0.0-1.2); Eosinophils 1 %; Lymphocytes 8 %; Monocytes Absolute 0.2 10^3/cmm (0.1-0.6); Segmented Neutrophils 73 %; Total Cells Counted 100 (0-100)
[2021-01-13 08:27] LABS: Absolute Neutrophil 9.1 10^3/cmm (1.4-6.5); Lymphocytes Absolute 0.8 10^3/cmm (1.2-3.4); Platelet Estimate Normal (Normal)
[2021-01-13] MEDS: cholecalciferol (vitamin D3) 1,000 unit Tablet 2000 UNIT PO (08:59)
[2021-01-13] MEDS: zinc gluconate 50 mg Tablet PO (09:00)
[2021-01-13] MEDS: phosphorus 250 mg Tablet PO ×2 (09:00→17:54)
[2021-01-13] MEDS: gabapentin 400 mg Capsule PO ×3 (09:00→21:50)
[2021-01-13] MEDS: ascorbic acid 500 mg Tablet 1000 MG PO ×2 (09:00→17:54)
[2021-01-13] MEDS: metoprolol succinate ER (24 HR) 50 mg Tablet PO (09:00)
[2021-01-13] MEDS: pantoprazole 40 mg SDV IVP (09:00)
[2021-01-13] MEDS: levothyroxine 75 mcg Tablet PO (09:00)
--- NOTE | 2021-01-13 09:34 | PC.SOCIAL ---
IMM Updated Updated pt's , via phone, on Pg 2 IMM. No questions voiced. Provided pt care nurse a copy to give to pt since pt is on isolation. Initialed, dated, & timed copy in chart.
--- NOTE | 2021-01-13 09:58 | PC.CHAP ---
Pastoral Care Encounter/Spiritual Assessment Type of Contact [] Declined whipped topping mixer visit [] Patient/Family/Request visit [] Outpatient visit [] Follow-up visit [] Physician referral [] Code/Alert [x] Routine visit [] Staff referral [] Actively dying [] Patient sleeping [] Family support [] [] Out of room [] Palliative care [] [] Receiving care in room [] Pre-surgical visit [] Trauma [] Long length of stay [] ICU visit [x] Other: covid Relational/Emotional Strength [] Patient feels connected with others/family/visitors/staff [] Distress [] Loneliness/isolation [] Abandonment Spirituality of Patient [] Person of Melissa [] Attends Hinduism of their Melissa [] Believes in Prayer [] Reads Bible or Zoroastrian materials [] There are Spiritual issues to be addressed [employer] Interventions [x] Prayer [] Active listening [] Non-anxious presence [] Spiritual/emotional support [] Crisis/trauma care [] Spiritual counseling [] Bereavement support [] Provided bereavement packet [] Provided Bible/devotional materials [] Provided toy/stuffed animal, coloring book to patient or family member [] Provided Communion [] Anointing/[place] [] Salvation [x] Completed spiritual assessment [] Other: Impact on Illness or Injury [] Angry [] Fearful [] Anxious [] Often cries [] Exhaustion [] Unable to work [] Unable to attend methodist [] Unable to walk/stand [] Unable to read [] Unable to drive [] Unable to eat/drink [] Unable to sleep [] Unable to be with family [] Patient intubated [] Other: Summary Time spent with patient
[2021-01-13] MEDS: FUROsemide 10 mg/mL SDV 2mL 20 MG IVP (10:49)
[2021-01-13] MEDS: potassium chloride ER 20 mEq Tablet 40 MEQ PO (10:50)
[2021-01-13 11:00] LABS: Glucose Point of Care 312 mg/dL (70-110)
[2021-01-13] MEDS: loperamide 2 mg Capsule PO (12:55)
--- NOTE | 2021-01-13 13:31 | PM.PN ---
Subjective Subjective: Interval history: Patient is quite teary this morning, she tells me she is feeling well, no fevers overnight, no shortness of breath, her nausea has improved, her oxygen requirements have decreased to 50% FiO2 45 L Vitals/I&O/Wt Last Vital Signs Temp 98.2 F 01/13/21 12:00 Pulse 117 H 01/13/21 12:08 Resp 22 H 01/13/21 12:08 BP 112/76 01/13/21 12:00 Pulse Ox 91 01/13/21 12:08 01/12/21 01/13/21 01/13/21 22:59 06:59 14:59 Intake Total 300 / 400 Output Total 300 / 2400 Balance Physical Exam Const: COMMON NORMALS: no acute distress and patient oriented x3 Resp: COMMON NORMALS: normal respiratory effort, No retractions, No use of accessory muscles and clear to auscultation bilaterally AUSCULTATION: clear to auscultation bilaterally Cardio: COMMON NORMALS: regular rate, regular rhythm, S1 normal heart sound present and S2 normal heart sound present RATE: regular rate RHYTHM: regular rhythm HEART SOUNDS: S1 normal heart sound present and S2 normal heart sound present GI: COMMON NORMALS: Normal to inspection, nondistended, normoactive bowel sounds present, Soft to palpation and non-tender PALPATION: Yes Soft to palpation Extremity: COMMON NORMALS: no pedal edema Neuro: COMMON NORMALS: patient oriented x3 Psych: COMMON NORMALS: mental status grossly normal Urinary Catheter Management^: Kimble: Cath Placed During This Visit: yes Reason for Continuing Indwelling Catheter: Accurate Measurement of Urinary Output in Critically Ill Patients Urinary Catheter Date of Insertion: 01/08/21 Data : 01/13/21 06:57 01/13/21 06:57 Micro: Microbiology 01/08/21 04:40 Blood Culture - Final Blood NO GROWTH AFTER 5 DAYS 01/08/21 05:00 Blood Culture - Final Blood NO GROWTH AFTER 5 DAYS 01/12/21 18:20 C.difficile Toxin B Gene (PCR) - Final Stool Routine Collection A&P Assessment and plan (1) COVID-19: Severe COVID-19 pneumonia, with acute respiratory failure Dexamethasone and remdesivir initiated 01/08 Status post Tocilizumab 01/09 Continue Rocephin and azithromycin Check MRSA and bacterial antigens Wean oxygen as tolerated, currently down to 50% FiO2, 45 L Respiratory therapy to follow Pulmonary toilet with Spiriva and Advair Vitamin C, zinc, vitamin D CTA did not show evidence of PE, demonstrates some chronic emphysematous changes and fibrosis in addition to ground glass opacities Blood cultures unremarkable so far Insulin sliding scale D-dimer 7.85, CRP 14.5, pro-Gagan 0.09, BNP 282 Clinically improving, Full code Lovenox for DVT prophylaxis Plan for today, wean oxygen therapy, diuresis, PT OT, encouraged to get up out of bed, ambulation Status: Acute (2) Asthma: Status: Chronic (3) Diabetes mellitus with hyperglycemia, without long-term current use of insulin: Status: Chronic Qualifiers: Diabetes mellitus type: type 2 Qualified Code(s): E11.65 - Type 2 diabetes mellitus with hyperglycemia (4) Adult onset hypothyroidism: Continue home levothyroxine Status: Chronic (5) Essential (primary) hypertension: Continue home metoprolol at half usual dose Status: Chronic Additional A&P Information Inpatient admission Replace potassium Continue home tricor Continue home gabapentin Continue home singulair Lovenox for DVT prophylaxis Protonix for GI prphylaxis Kimble Supportive care otherwise Disposition will ultimately depend on clinical course Findings, concerns and plans discussed briefly with patient, she was given an opportunity to ask questions Full code Attestations Medical Necessity Statement*: Requires hospitalization for COVID-19 pneumonia, acute respiratory failure Coding Level of Care Code Acute Dietetic Technician Registered for [facility] Diagnoses COVID-19 U07.1 Asthma J45.909 Diabetes mellitus with hyperglycemia, without long-term current use of insulin E11.65 Diabetes mellitus type: type 2 Adult onset hypothyroidism E03.8 Essential (primary) hypertension I10
[2021-01-13] MEDS: cefTRIAXone 1,000 MG in sodium chloride 0.9% (plus) 50 ML 100 MG IV (16:12)
[2021-01-13] MEDS: azithromycin 500 MG in sodium chloride 0.9% 250 ML 250 MG IV (17:53)
[2021-01-13] MEDS: enoxaparin 40 mg/0.4 mL Syringe SUBCUT (17:54)
[2021-01-13 20:44] LABS: Glucose Point of Care 212 mg/dL (70-110)
[2021-01-13] MEDS: montelukast sodium 10 mg Tablet PO (21:50)
[2021-01-13] MEDS: TRAMadol 50 mg Tablet PO (21:54)
[2021-01-13] MEDS: benzonatate 100 mg Capsule PO (22:30)
[2021-01-14] VITALS (12 sets, daily range): BP systolic 101–136; BP diastolic 64–89; PULSE 84–110; RESP 18–24; TEMP 36.4–37; O2SAT 91–92
[2021-01-14] MEDS: TRAMadol 50 mg Tablet PO ×2 (02:07→15:19)
[2021-01-14 04:09] LABS: ABG PCO2 41.2 mmHg (35-45); ABG PH Result 7.43 (7.35-7.45); Arterial Blood Gas Hematocrit 40.9 % (37-47); Base Excess ABG 2.9 mmol/L (-2.0-2.0); Blood Gas Allen Test Pos; Blood Gas Sample Type Arterial; HCO3 ABG 27.4 mmol/L (22-26); PO2 ABG 80.9 mmHg (80.0-100.0)
[2021-01-14 04:10] LABS: Blood Gas Operator Identificat ED; Blood Gas Sample Site Radial, left; Oxygen Device NC
[2021-01-14] MEDS: fenofibrate 145 mg Tablet PO (05:10)
[2021-01-14] MEDS: dexamethasone 10 mg/mL INJ 6 MG IVP (05:40)
[2021-01-14 06:36] LABS: Basophils # 0.1 10^3/uL (0.0-0.1); Basophils % 0.4 %; Eosinophils # 0.1 10^3/uL (0.0-0.8); Eosinophils % 0.4 %; Hematocrit 41.4 % (37.0-47.0); Lymphocytes # 1.2 10^3/uL (0.8-4.8); Lymphocytes % 5.3 %; Mean Corpuscular HGB Conc 31.4 g/dL (30.0-36.0); Mean Corpuscular Hemoglobin 27.8 pg (28.0-34.0); Mean Corpuscular Volume 88.7 fL (81-99); Monocytes # 0.6 10^3/uL (0.2-0.9); Monocytes % 2.5 %; Neutrophils # 20.07 10^3/uL (1.8-7.7); Neutrophils % 87.9 %; Nucleated Red Blood Cells % 0 %; Platelet Count 381 10^3/cmm (130-400); Red Blood Count 4.67 10^6/uL (4.1-5.3); Red Cell Distribution Width 13.9 % (12.1-15.1); White Blood Count 22.8 10^3/uL (4.0-10.0)
[2021-01-14 06:52] LABS: Glucose Point of Care 190 mg/dL (70-110)
--- NOTE | 2021-01-14 06:58 | PC.NURSE ---
Shift Summar Patient had several coughing fits causing pain in her right shoulder which required ordered dose of Tramadol. Applied heat to shoulder with improvement. Night hospitalist ordered Robitussin and Tessalon Pearls.
[2021-01-14 07:02] LABS: NT Pro B Type Natriuretic Pept 79 pg/mL (0-125)
[2021-01-14 07:07] LABS: Alanine Aminotransferase 11 U/L (0-33); Albumin Level 3.3 g/dL (3.5-5.2); Alkaline Phosphatase 97 IU/L (35-105); Anion Gap 16.2 (5-19); Aspartate Amino Transferase 21 U/L (0-32); Blood Urea Nitrogen 14 mg/dL (8-23); C Reactive Protein 3.7 mg/L (0.0-4.9); Calcium 8.3 mg/dL (8.5-10.5); Carbon Dioxide 23 mmol/L (22-29); Chloride 101 mmol/L (98-107); Globulin 2.8 g/dL (1.3-4.6); Glucose 167 mg/dL (65-115); Magnesium 1.8 mg/dL (1.7-2.3); Osmolality Calculated 288 mOsm/kg (285-295); Phosphorus 3.3 mg/dL (2.5-4.5); Potassium 3.2 mmol/L (3.5-5.1); Sodium 137 mmol/L (136-145); Total Bilirubin 0.5 mg/dL (0.15-1.2); Total Protein 6.1 g/dL (6.6-8.7)
[2021-01-14 07:38] LABS: Creatine Phosphokinase 11 U/L (26-192)
[2021-01-14 08:13] LABS: Procalcitonin 0.08 ng/mL (0-0.5)
[2021-01-14] MEDS: metoprolol succinate ER (24 HR) 50 mg Tablet PO (11:06)
[2021-01-14] MEDS: phosphorus 250 mg Tablet PO ×2 (11:06→17:29)
[2021-01-14] MEDS: gabapentin 400 mg Capsule PO ×3 (11:06→21:10)
[2021-01-14] MEDS: ascorbic acid 500 mg Tablet 1000 MG PO ×2 (11:06→17:29)
[2021-01-14] MEDS: potassium chloride ER 20 mEq Tablet 40 MEQ PO (11:15)
[2021-01-14] MEDS: cholecalciferol (vitamin D3) 1,000 unit Tablet 2000 UNIT PO (11:15)
[2021-01-14] MEDS: pantoprazole 40 mg SDV IVP (11:15)
[2021-01-14] MEDS: zinc gluconate 50 mg Tablet PO (11:15)
[2021-01-14] MEDS: levothyroxine 75 mcg Tablet PO (11:15)
[2021-01-14 11:32] LABS: Glucose Point of Care 258 mg/dL (70-110)
--- NOTE | 2021-01-14 13:32 | PM.PN ---
Subjective Subjective: Interval history: This morning patient is doing well, she was weaned down to nasal cannula, no fevers, chills, no nausea, no vomiting Vitals/I&O/Wt Last Vital Signs Temp 98.0 F 01/14/21 12:00 Pulse 84 01/14/21 12:00 Resp 18 01/14/21 12:00 BP 119/89 01/14/21 12:00 Pulse Ox 92 01/14/21 12:00 01/13/21 01/14/21 01/14/21 22:59 06:59 14:59 Intake Total 420 / 540 Output Total 1500 / 1500 350 / 1850 Balance -1080 / -960 -350 / -1310 Physical Exam Const: COMMON NORMALS: no acute distress and patient oriented x3 Neck/C-Spine: COMMON NORMALS: no JVD Resp: COMMON NORMALS: normal respiratory effort, No retractions, No use of accessory muscles and clear to auscultation bilaterally AUSCULTATION: clear to auscultation bilaterally Cardio: COMMON NORMALS: no JVD, regular rate, regular rhythm, S1 normal heart sound present, S2 normal heart sound present and No murmurs present (Cardio) RATE: regular rate RHYTHM: regular rhythm HEART SOUNDS: S1 normal heart sound present and S2 normal heart sound present GI: COMMON NORMALS: Normal to inspection, nondistended, normoactive bowel sounds present, Soft to palpation and non-tender PALPATION: Yes Soft to palpation Extremity: COMMON NORMALS: no pedal edema Neuro: COMMON NORMALS: patient oriented x3 Urinary Catheter Management^: Kimble: Cath Placed During This Visit: yes Reason for Continuing Indwelling Catheter: Accurate Measurement of Urinary Output in Critically Ill Patients Urinary Catheter Date of Insertion: 01/08/21 Data : 01/14/21 05:53 01/14/21 05:53 A&P Assessment and plan (1) COVID-19: Severe COVID-19 pneumonia, with acute respiratory failure Continue dexamethasone and remdesivir completed initiated 01/08 Status post Tocilizumab 01/09 Continue Rocephin and azithromycin Check MRSA and bacterial antigens Wean oxygen as tolerated, currently down to nasal cannula White blood cell count is up to 22.8, neutrophilic, afebrile, clinically improving, continue to monitor Respiratory therapy to follow Pulmonary toilet with Spiriva and Advair Vitamin C, zinc, vitamin D CTA did not show evidence of PE, demonstrates some chronic emphysematous changes and fibrosis in addition to ground glass opacities Blood cultures unremarkable so far Insulin sliding scale D-dimer 7.85, CRP 14.5, pro-Gagan 0.09, BNP 282 Clinically improving, Full code Lovenox for DVT prophylaxis Plan for today, wean oxygen therapy, diuresis, PT OT, encouraged to get up out of bed, ambulation, hopefully can discharge the next 24 to 48 hours Status: Acute (2) Asthma: Status: Chronic (3) Diabetes mellitus with hyperglycemia, without long-term current use of insulin: Status: Chronic Qualifiers: Diabetes mellitus type: type 2 Qualified Code(s): E11.65 - Type 2 diabetes mellitus with hyperglycemia (4) Adult onset hypothyroidism: Continue home levothyroxine Status: Chronic (5) Essential (primary) hypertension: Continue home metoprolol at half usual dose Status: Chronic Additional A&P Information Inpatient admission Replace potassium Continue home tricor Continue home gabapentin Continue home singulair Lovenox for DVT prophylaxis Protonix for GI prphylaxis Kimble Supportive care otherwise Disposition will ultimately depend on clinical course Findings, concerns and plans discussed briefly with patient, she was given an opportunity to ask questions Full code Attestations Medical Necessity Statement*: Patient requires hospitalization for COVID-19 pneumonia Coding Level of Care Code Acute 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
[2021-01-14] MEDS: cefTRIAXone 1,000 MG in sodium chloride 0.9% (plus) 50 ML 100 MG IV (15:16)
[2021-01-14] MEDS: benzonatate 100 mg Capsule PO (15:20)
[2021-01-14] MEDS: enoxaparin 40 mg/0.4 mL Syringe SUBCUT (17:29)
[2021-01-14] MEDS: azithromycin 500 MG in sodium chloride 0.9% 250 ML 250 MG IV (17:31)
[2021-01-14 17:35] LABS: Glucose Point of Care 127 mg/dL (70-110)
[2021-01-14] MEDS: montelukast sodium 10 mg Tablet PO (21:10)
[2021-01-14 21:17] LABS: Glucose Point of Care 169 mg/dL (70-110)
[2021-01-14 21:17] LABS: Glucose Point of Care 112 mg/dL (70-110)
[2021-01-14 21:46] LABS: Glucose Point of Care 143 mg/dL (70-110)
[2021-01-15] VITALS (9 sets, daily range): BP systolic 112–136; BP diastolic 66–89; PULSE 64–102; RESP 18–26; TEMP 36.3–36.9; O2SAT 90–96
[2021-01-15] MEDS: acetaminophen 325 mg Tablet 650 MG PO (01:25)
[2021-01-15] MEDS: guaiFENesin-dextromethorphan UDC 10 mL PO ×2 (01:28→06:21)
--- NOTE | 2021-01-15 05:11 | PC.NURSE ---
Shift Note Frequent safety and comfort rounds continue. Orders and/or nursing care completed as indicated. Patient monitored for response to intervention and treatment(s). Education provided includes use of IS, cough turn and deep breathe. Patient remains on 15L HF. Will continue to monitor.
[2021-01-15] MEDS: dexamethasone 10 mg/mL INJ 6 MG IVP (05:24)
[2021-01-15] MEDS: fenofibrate 145 mg Tablet PO (06:19)
[2021-01-15 06:54] LABS: Glucose Point of Care 161 mg/dL (70-110)
[2021-01-15] MEDS: ascorbic acid 500 mg Tablet 1000 MG PO ×2 (08:29→17:04)
[2021-01-15] MEDS: gabapentin 400 mg Capsule PO ×3 (08:29→20:42)
[2021-01-15] MEDS: pantoprazole 40 mg SDV IVP (08:29)
[2021-01-15] MEDS: metoprolol succinate ER (24 HR) 50 mg Tablet PO (08:29)
[2021-01-15] MEDS: levothyroxine 75 mcg Tablet PO (08:30)
[2021-01-15] MEDS: cholecalciferol (vitamin D3) 1,000 unit Tablet 2000 UNIT PO (08:30)
[2021-01-15] MEDS: phosphorus 250 mg Tablet PO ×2 (08:30→17:04)
[2021-01-15] MEDS: zinc gluconate 50 mg Tablet PO (08:34)
[2021-01-15 09:15] LABS: Basophils # 0.1 10^3/uL (0.0-0.1); Basophils % 0.3 %; Eosinophils % 0.1 %; Hematocrit 39.3 % (37.0-47.0); Hemoglobin 12.4 g/dL (11.5-15.3); Lymphocytes # 1.1 10^3/uL (0.8-4.8); Mean Corpuscular HGB Conc 31.6 g/dL (30.0-36.0); Mean Corpuscular Hemoglobin 27.8 pg (28.0-34.0); Mean Corpuscular Volume 88.1 fL (81-99); Mean Platelet Volume 10.3 fL (7.4-10.4); Monocytes # 0.5 10^3/uL (0.2-0.9); Monocytes % 2.4 %; Neutrophils # 19.85 10^3/uL (1.8-7.7); Neutrophils % 89.5 %; Nucleated Red Blood Cells % 0 %; Platelet Count 334 10^3/cmm (130-400); Red Blood Count 4.46 10^6/uL (4.1-5.3); Red Cell Distribution Width 14.2 % (12.1-15.1); White Blood Count 22.2 10^3/uL (4.0-10.0)
[2021-01-15 09:41] LABS: Alanine Aminotransferase 10 U/L (0-33); Albumin Level 3.5 g/dL (3.5-5.2); Alkaline Phosphatase 95 IU/L (35-105); Anion Gap 15.4 (5-19); Aspartate Amino Transferase 18 U/L (0-32); Blood Urea Nitrogen 11 mg/dL (8-23); C Reactive Protein 9.3 mg/L (0.0-4.9); Calcium 8.8 mg/dL (8.5-10.5); Carbon Dioxide 26 mmol/L (22-29); Chloride 99 mmol/L (98-107); Globulin 2.6 g/dL (1.3-4.6); Glucose 189 mg/dL (65-115); Magnesium 1.9 mg/dL (1.7-2.3); Osmolality Calculated 286 mOsm/kg (285-295); Phosphorus 2.4 mg/dL (2.5-4.5); Potassium 4.4 mmol/L (3.5-5.1); Sodium 136 mmol/L (136-145); Total Bilirubin 0.7 mg/dL (0.15-1.2); Total Protein 6.1 g/dL (6.6-8.7)
[2021-01-15 09:51] LABS: NT Pro B Type Natriuretic Pept 64 pg/mL (0-125); Procalcitonin 0.07 ng/mL (0-0.5)
[2021-01-15 10:01] LABS: Creatine Phosphokinase 10 U/L (26-192)
[2021-01-15 11:30] LABS: Glucose Point of Care 214 mg/dL (70-110)
--- NOTE | 2021-01-15 11:53 | PC.SOCIAL ---
IMM Update. Pg. 2 of IMM updated. Initialed, dated, and timed, and placed in chart. Attempted to reach family to discuss over the phone, unable to reach. CM will try again at another time.
--- NOTE | 2021-01-15 12:47 | PM.PN ---
Subjective Subjective: Interval history: This morning patient was seen, she is feeling better, no nausea, no vomiting, no diarrhea, afebrile overnight still on high flow oxygen Vitals/I&O/Wt Last Vital Signs Temp 98.4 F 01/15/21 12:00 Pulse 102 H 01/15/21 12:00 Resp 26 H 01/15/21 12:00 BP 133/89 01/15/21 12:00 Pulse Ox 92 01/15/21 12:00 01/14/21 01/15/21 01/15/21 22:59 06:59 14:59 Intake Total 300.000 / 300.000 Output Total 900 / 900 Balance 300.000 / 300.000 -900 / -900 Physical Exam Const: COMMON NORMALS: no acute distress and patient oriented x3 Resp: COMMON NORMALS: normal respiratory effort, No retractions, No use of accessory muscles and clear to auscultation bilaterally AUSCULTATION: clear to auscultation bilaterally Cardio: COMMON NORMALS: regular rate, regular rhythm, S1 normal heart sound present and S2 normal heart sound present RATE: regular rate RHYTHM: regular rhythm HEART SOUNDS: S1 normal heart sound present and S2 normal heart sound present GI: COMMON NORMALS: Normal to inspection, nondistended, normoactive bowel sounds present, Soft to palpation and non-tender PALPATION: Yes Soft to palpation Extremity: COMMON NORMALS: no pedal edema Neuro: COMMON NORMALS: patient oriented x3 Psych: COMMON NORMALS: mental status grossly normal Urinary Catheter Management^: Kimble: Cath Placed During This Visit: yes Reason for Continuing Indwelling Catheter: Acute Urinary Retention or Obstruction Urinary Catheter Date of Insertion: 01/08/21 Data : 01/15/21 08:34 01/15/21 08:34 A&P Assessment and plan (1) COVID-19: Severe COVID-19 pneumonia, with acute respiratory failure Continue dexamethasone and remdesivir completed initiated 01/08 Status post Tocilizumab 01/09 Continue Rocephin and azithromycin Wean oxygen as tolerated, currently down to 15 L high flow White blood cell count is up to 22.8, neutrophilic, afebrile, clinically improving, continue to monitor Respiratory therapy to follow Pulmonary toilet with Spiriva and Advair Vitamin C, zinc, vitamin D CTA did not show evidence of PE, demonstrates some chronic emphysematous changes and fibrosis in addition to ground glass opacities Blood cultures unremarkable so far Insulin sliding scale D-dimer 7.85, CRP 14.5, pro-Gagan 0.07, BNP 64 Clinically improving, Full code Lovenox for DVT prophylaxis Plan for today, wean oxygen therapy, diuresis, PT OT, encouraged to get up out of bed, ambulation, hopefully can discharge the next 24 to 48 hours Status: Acute (2) Asthma: Status: Chronic (3) Diabetes mellitus with hyperglycemia, without long-term current use of insulin: Status: Chronic Qualifiers: Diabetes mellitus type: type 2 Qualified Code(s): E11.65 - Type 2 diabetes mellitus with hyperglycemia (4) Adult onset hypothyroidism: Continue home levothyroxine Status: Chronic (5) Essential (primary) hypertension: Continue home metoprolol at half usual dose Status: Chronic Additional A&P Information Inpatient admission Replace potassium Continue home tricor Continue home gabapentin Continue home singulair Lovenox for DVT prophylaxis Protonix for GI prphylaxis Kimble Supportive care otherwise Disposition will ultimately depend on clinical course Findings, concerns and plans discussed briefly with patient, she was given an opportunity to ask questions Full code Attestations Medical Necessity Statement*: Patient requires hospitalization due to COVID-19 pneumonia Coding Level of Care Code Acute Information 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
[2021-01-15] MEDS: cefTRIAXone 1,000 MG in sodium chloride 0.9% (plus) 50 ML 100 MG IV (14:51)
[2021-01-15] MEDS: azithromycin 500 MG in sodium chloride 0.9% 250 ML 250 MG IV (15:38)
[2021-01-15] MEDS: enoxaparin 40 mg/0.4 mL Syringe SUBCUT (17:04)
[2021-01-15 17:22] LABS: Glucose Point of Care 131 mg/dL (70-110)
[2021-01-15] MEDS: montelukast sodium 10 mg Tablet PO (20:42)
[2021-01-15] MEDS: loperamide 2 mg Capsule PO (21:51)
[2021-01-15 22:51] LABS: Glucose Point of Care 160 mg/dL (70-110)
[2021-01-16] VITALS (7 sets, daily range): BP systolic 110–126; BP diastolic 67–81; PULSE 86–111; RESP 18–22; TEMP 36.3–36.6; O2SAT 90–100
[2021-01-16] MEDS: fenofibrate 145 mg Tablet PO (06:12)
[2021-01-16 06:52] LABS: Glucose Point of Care 154 mg/dL (70-110)
[2021-01-16] MEDS: dexamethasone 10 mg/mL INJ 6 MG IVP (06:54)
[2021-01-16 08:04] LABS: Basophils % 0.3 %; Eosinophils % 0.1 %; Hemoglobin 12.5 g/dL (11.5-15.3); Lymphocytes # 1.3 10^3/uL (0.8-4.8); Lymphocytes % 8.6 %; Mean Corpuscular HGB Conc 31.3 g/dL (30.0-36.0); Mean Corpuscular Volume 89.5 fL (81-99); Mean Platelet Volume 10.6 fL (7.4-10.4); Monocytes # 0.8 10^3/uL (0.2-0.9); Monocytes % 5.6 %; Neutrophils # 12.04 10^3/uL (1.8-7.7); Neutrophils % 82.5 %; Nucleated Red Blood Cells % 0 %; Platelet Count 348 10^3/cmm (130-400); Red Blood Count 4.47 10^6/uL (4.1-5.3); Red Cell Distribution Width 14.4 % (12.1-15.1); White Blood Count 14.6 10^3/uL (4.0-10.0)
[2021-01-16] MEDS: levothyroxine 75 mcg Tablet PO (08:21)
[2021-01-16] MEDS: cholecalciferol (vitamin D3) 1,000 unit Tablet 2000 UNIT PO (08:21)
[2021-01-16] MEDS: ascorbic acid 500 mg Tablet 1000 MG PO ×2 (08:21→17:31)
[2021-01-16] MEDS: metoprolol succinate ER (24 HR) 50 mg Tablet PO (08:21)
[2021-01-16] MEDS: gabapentin 400 mg Capsule PO ×3 (08:21→22:06)
[2021-01-16] MEDS: phosphorus 250 mg Tablet PO ×2 (08:21→17:32)
[2021-01-16] MEDS: zinc gluconate 50 mg Tablet PO (08:21)
[2021-01-16] MEDS: pantoprazole 40 mg SDV IVP (08:22)
[2021-01-16 08:40] LABS: Alanine Aminotransferase 8 U/L (0-33); Albumin Level 3.4 g/dL (3.5-5.2); Alkaline Phosphatase 119 IU/L (35-105); Anion Gap 15.5 (5-19); Aspartate Amino Transferase 15 U/L (0-32); Blood Urea Nitrogen 10 mg/dL (8-23); C Reactive Protein 6.1 mg/L (0.0-4.9); Calcium 8.8 mg/dL (8.5-10.5); Carbon Dioxide 27 mmol/L (22-29); Chloride 100 mmol/L (98-107); Globulin 2.5 g/dL (1.3-4.6); Glucose 136 mg/dL (65-115); Magnesium 2.1 mg/dL (1.7-2.3); Osmolality Calculated 289 mOsm/kg (285-295); Phosphorus 2.6 mg/dL (2.5-4.5); Potassium 3.5 mmol/L (3.5-5.1); Sodium 139 mmol/L (136-145); Total Bilirubin 0.4 mg/dL (0.15-1.2); Total Protein 5.9 g/dL (6.6-8.7)
[2021-01-16 08:46] LABS: NT Pro B Type Natriuretic Pept 90 pg/mL (0-125); Procalcitonin 0.06 ng/mL (0-0.5)
[2021-01-16] MEDS: doxycycline 100 mg Tablet PO ×2 (09:42→17:31)
--- NOTE | 2021-01-16 11:29 | PM.PN ---
Subjective Subjective: Interval history: Patient tells me that she feels a whole lot better this morning, she is down to 15 L, no nausea, no vomiting, no chest pain, no shortness of breath Vitals/I&O/Wt Last Vital Signs Temp 97.8 F 01/16/21 08:00 Pulse 110 H 01/16/21 09:24 Resp 22 H 01/16/21 09:24 BP 126/74 01/16/21 08:00 Pulse Ox 90 01/16/21 09:24 01/15/21 01/16/21 01/16/21 22:59 06:59 14:59 Intake Total 300 / 300 400 / 700 500 / 500 Output Total 950 / 1850 800 / 800 Balance -650 / -1550 400 / -1150 -300 / -300 Physical Exam Const: COMMON NORMALS: no acute distress and patient oriented x3 Resp: COMMON NORMALS: normal respiratory effort, No retractions, No use of accessory muscles and clear to auscultation bilaterally AUSCULTATION: clear to auscultation bilaterally Cardio: COMMON NORMALS: regular rate, regular rhythm, S1 normal heart sound present and S2 normal heart sound present RATE: regular rate RHYTHM: regular rhythm HEART SOUNDS: S1 normal heart sound present and S2 normal heart sound present GI: COMMON NORMALS: Normal to inspection, nondistended, normoactive bowel sounds present, Soft to palpation and non-tender PALPATION: Yes Soft to palpation Extremity: COMMON NORMALS: no pedal edema Neuro: COMMON NORMALS: patient oriented x3 Psych: COMMON NORMALS: mental status grossly normal Urinary Catheter Management^: Kimble: Cath Placed During This Visit: yes Reason for Continuing Indwelling Catheter: Acute Urinary Retention or Obstruction Urinary Catheter Date of Insertion: 01/08/21 Data : 01/16/21 06:54 01/16/21 06:54 A&P Assessment and plan (1) COVID-19: Severe COVID-19 pneumonia, with acute respiratory failure Continue dexamethasone and remdesivir completed initiated 01/08 Status post Tocilizumab 01/09 De-escalate antibiotic therapy to doxycycline Wean oxygen as tolerated, currently down to 15 L high flow White blood cell count is up to 14.6, neutrophilic, afebrile, clinically improving, continue to monitor Respiratory therapy to follow Pulmonary toilet with Spiriva and Advair Vitamin C, zinc, vitamin D CTA did not show evidence of PE, demonstrates some chronic emphysematous changes and fibrosis in addition to ground glass opacities Blood cultures unremarkable so far Insulin sliding scale She is -5.9 L D-dimer 7.85, CRP 14.5, pro-Gagan 0.07, BNP 64 Clinically improving, Full code Lovenox for DVT prophylaxis Plan for today, wean oxygen therapy, hold off on diuresis, PT OT, encouraged to get up out of bed, ambulation, hopefully can discharge the next 24 to 48 hours Status: Acute (2) Asthma: Status: Chronic (3) Diabetes mellitus with hyperglycemia, without long-term current use of insulin: Status: Chronic Qualifiers: Diabetes mellitus type: type 2 Qualified Code(s): E11.65 - Type 2 diabetes mellitus with hyperglycemia (4) Adult onset hypothyroidism: Continue home levothyroxine Status: Chronic (5) Essential (primary) hypertension: Continue home metoprolol at half usual dose Status: Chronic Additional A&P Information Inpatient admission Replace potassium Continue home tricor Continue home gabapentin Continue home singulair Lovenox for DVT prophylaxis Protonix for GI prphylaxis Kimble Supportive care otherwise Disposition will ultimately depend on clinical course Findings, concerns and plans discussed briefly with patient, she was given an opportunity to ask questions Full code Attestations Medical Necessity Statement*: Patient requires hospitalization due to COVID-19 pneumonia Coding Level of Care Code Acute 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
[2021-01-16] MEDS: guaiFENesin-dextromethorphan UDC 10 mL PO (15:24)
[2021-01-16] MEDS: benzonatate 100 mg Capsule PO (15:24)
[2021-01-16] MEDS: enoxaparin 40 mg/0.4 mL Syringe SUBCUT (17:32)
[2021-01-16 17:33] LABS: Glucose Point of Care 191 mg/dL (70-110)
[2021-01-16 21:14] LABS: Glucose Point of Care 164 mg/dL (70-110)
[2021-01-16 21:14] LABS: Glucose Point of Care 262 mg/dL (70-110)
[2021-01-16] MEDS: montelukast sodium 10 mg Tablet PO (22:07)
[2021-01-17] VITALS (10 sets, daily range): BP systolic 105–141; BP diastolic 57–80; PULSE 86–100; RESP 16–22; TEMP 36.3–36.6; O2SAT 93–98
[2021-01-17] MEDS: dexamethasone 10 mg/mL INJ 6 MG IVP (05:36)
[2021-01-17] MEDS: fenofibrate 145 mg Tablet PO (05:45)
[2021-01-17 06:09] LABS: Basophils % 0.4 %; Hematocrit 38.1 % (37.0-47.0); Hemoglobin 11.8 g/dL (11.5-15.3); Lymphocytes # 1.2 10^3/uL (0.8-4.8); Lymphocytes % 11.3 %; Mean Corpuscular Volume 90.3 fL (81-99); Mean Platelet Volume 10.6 fL (7.4-10.4); Monocytes # 0.9 10^3/uL (0.2-0.9); Neutrophils # 8.42 10^3/uL (1.8-7.7); Neutrophils % 76.4 %; Nucleated Red Blood Cells % 0 %; Platelet Count 303 10^3/cmm (130-400); Red Blood Count 4.22 10^6/uL (4.1-5.3); Red Cell Distribution Width 14.5 % (12.1-15.1)
[2021-01-17 06:39] LABS: Alanine Aminotransferase 9 U/L (0-33); Albumin Level 3.5 g/dL (3.5-5.2); Alkaline Phosphatase 90 IU/L (35-105); Aspartate Amino Transferase 15 U/L (0-32); Blood Urea Nitrogen 13 mg/dL (8-23); C Reactive Protein 2.5 mg/L (0.0-4.9); Calcium 8.6 mg/dL (8.5-10.5); Carbon Dioxide 26 mmol/L (22-29); Chloride 102 mmol/L (98-107); Globulin 2.6 g/dL (1.3-4.6); Glomerular Filtration Rate 161.7 mL/min (90-130); Glucose 130 mg/dL (65-115); Magnesium 1.9 mg/dL (1.7-2.3); Osmolality Calculated 290 mOsm/kg (285-295); Sodium 139 mmol/L (136-145); Total Bilirubin 0.5 mg/dL (0.15-1.2); Total Protein 6.1 g/dL (6.6-8.7)
[2021-01-17 06:40] LABS: Anion Gap 14.3 (5-19); Creatinine Clr Calc Pharmacy 156.0914; Potassium 3.3 mmol/L (3.5-5.1)
[2021-01-17 06:46] LABS: Glucose Point of Care 136 mg/dL (70-110)
[2021-01-17 06:52] LABS: NT Pro B Type Natriuretic Pept 92 pg/mL (0-125); Procalcitonin 0.04 ng/mL (0-0.5)
[2021-01-17] MEDS: zinc gluconate 50 mg Tablet PO (08:40)
[2021-01-17] MEDS: cholecalciferol (vitamin D3) 1,000 unit Tablet 2000 UNIT PO (08:40)
[2021-01-17] MEDS: gabapentin 400 mg Capsule PO ×3 (08:41→20:53)
[2021-01-17] MEDS: phosphorus 250 mg Tablet PO ×2 (08:41→17:28)
[2021-01-17] MEDS: levothyroxine 75 mcg Tablet PO (08:41)
[2021-01-17] MEDS: metoprolol succinate ER (24 HR) 50 mg Tablet PO (08:41)
[2021-01-17] MEDS: doxycycline 100 mg Tablet PO ×2 (08:41→17:28)
[2021-01-17] MEDS: potassium chloride ER 20 mEq Tablet 40 MEQ PO (08:42)
[2021-01-17] MEDS: pantoprazole 40 mg SDV IVP (08:42)
--- NOTE | 2021-01-17 09:06 | PC.SOCIAL ---
IMM Update PG. 2 of IMM updated and reviewed with patient over the phone. Verbalized understanding. Initialed, dated, and timed copy in chart.
--- NOTE | 2021-01-17 09:50 | PC.CHAP ---
Pastoral Care Encounter/Spiritual Assessment Type of Contact [] Declined java sql developer visit [] Patient/Family/Request visit [] Outpatient visit [] Follow-up visit [] Physician referral [] Code/Alert [x] Routine visit [] Staff referral [] Actively dying [] Patient sleeping [] Family support [] [] Out of room [] Palliative care [] [] Receiving care in room [] Pre-surgical visit [] Trauma [] Long length of stay [] ICU visit [x] Other:covid Relational/Emotional Strength [] Patient feels connected with others/family/visitors/staff [] Distress [] Loneliness/isolation [] Abandonment Spirituality of Patient [] Person of Melissa [] Attends Anglican of their Melissa [] Believes in Prayer [] Reads Bible or Latter-Day materials [] There are Spiritual issues to be addressed Sales Service Promoter Interventions [x] Prayer [] Active listening [] Non-anxious presence [] Spiritual/emotional support [] Crisis/trauma care [] Spiritual counseling [] Bereavement support [] Provided bereavement packet [] Provided Bible/devotional materials [] Provided toy/stuffed animal, coloring book to patient or family member [] Provided Communion [] Anointing/[place] [] Salvation [x] Completed spiritual assessment [] Other: Impact on Illness or Injury [] Angry [] Fearful [] Anxious [] Often cries [] Exhaustion [] Unable to work [] Unable to attend congregational [] Unable to walk/stand [] Unable to read [] Unable to drive [] Unable to eat/drink [] Unable to sleep [] Unable to be with family [] Patient intubated [] Other: Summary Time spent with patient
[2021-01-17 11:47] LABS: Glucose Point of Care 293 mg/dL (70-110)
--- NOTE | 2021-01-17 13:14 | P.PN_ITS ---
Subjective Subjective: Interval history: Patient was seen this morning, she is in good spirits, she is enjoying breakfast, she is on 15 L, she tells that she is ready to go home, but knows that she is on high amount of oxygen, but she is feeling well this morning Vitals/I&O/Wt Last Vital Signs Temp 97.6 F 01/17/21 12:00 Pulse 100 01/17/21 12:00 Resp 22 H 01/17/21 12:00 BP 135/77 01/17/21 12:00 Pulse Ox 98 01/17/21 12:00 01/16/21 01/17/21 01/17/21 22:59 06:59 14:59 Intake Total 360 / 360 Output Total 1100 / 1900 400 / 2300 200 / 200 Balance -1100 / -1400 -400 / -1800 160 / 160 Physical Exam Const: COMMON NORMALS: no acute distress and patient oriented x3 Resp: COMMON NORMALS: normal respiratory effort, No retractions, No use of accessory muscles and clear to auscultation bilaterally AUSCULTATION: clear to auscultation bilaterally Cardio: COMMON NORMALS: regular rate, regular rhythm, S1 normal heart sound present and S2 normal heart sound present RATE: regular rate RHYTHM: regular rhythm HEART SOUNDS: S1 normal heart sound present and S2 normal heart sound present GI: COMMON NORMALS: Normal to inspection, nondistended, normoactive bowel sounds present, Soft to palpation and non-tender PALPATION: Yes Soft to palpation Extremity: COMMON NORMALS: no pedal edema Neuro: COMMON NORMALS: patient oriented x3 Psych: COMMON NORMALS: mental status grossly normal Urinary Catheter Management^: Kimble: Cath Placed During This Visit: yes, but has since been removed by the nurse Reason for Continuing Indwelling Catheter: Decision to DC Catheter Urinary Catheter Date of Insertion: 01/08/21 Date Urinary Catheter Removed: 01/17/21 Time Urinary Catheter Discontinued: 08:58 Data : 01/17/21 05:50 01/17/21 05:50 A&P Assessment and plan (1) COVID-19: Severe COVID-19 pneumonia, with acute respiratory failure Continue dexamethasone and remdesivir completed initiated 01/08 Status post Tocilizumab 01/09 On doxycycline Wean oxygen as tolerated, currently down to 15 L high flow Respiratory therapy to follow Pulmonary toilet with Spiriva and Advair Vitamin C, zinc, vitamin D CTA did not show evidence of PE, demonstrates some chronic emphysematous changes and fibrosis in addition to ground glass opacities Blood cultures unremarkable so far Insulin sliding scale She is -7.3 L Clinically improving, Full code Lovenox for DVT prophylaxis Plan for today, wean oxygen therapy, hold off on diuresis, PT OT, encouraged to get up out of bed, ambulation, hopefully can discharge the next 24 to 48 hours Status: Acute (2) Asthma: Status: Chronic (3) Diabetes mellitus with hyperglycemia, without long-term current use of insulin: Status: Chronic Qualifiers: Diabetes mellitus type: type 2 Qualified Code(s): E11.65 - Type 2 diabetes mellitus with hyperglycemia (4) Adult onset hypothyroidism: Continue home levothyroxine Status: Chronic (5) Essential (primary) hypertension: Continue home metoprolol at half usual dose Status: Chronic Additional A&P Information Inpatient admission Replace potassium Continue home tricor Continue home gabapentin Continue home singulair Lovenox for DVT prophylaxis Protonix for GI prphylaxis Kimble Supportive care otherwise Disposition likely home Findings, concerns and plans discussed briefly with patient, she was given an opportunity to ask questions Full code Attestations Medical Necessity Statement*: Patient requires hospitalization for COVID-19 pneumonia Coding Level of Care Code Acute 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
[2021-01-17] MEDS: loperamide 2 mg Capsule PO (14:49)
[2021-01-17 17:17] LABS: Glucose Point of Care 173 mg/dL (70-110)
[2021-01-17] MEDS: ascorbic acid 500 mg Tablet 1000 MG PO (17:27)
[2021-01-17] MEDS: enoxaparin 40 mg/0.4 mL Syringe SUBCUT (17:28)
--- NOTE | 2021-01-17 17:38 | PC.RESP ---
RT Shift Note Frequent safety and respiratory rounds continue. Orders completed as indicated. Patient monitored pre and post treatments throughout shift. Patient tolerated treatments appropriately. Condition did not change. Patient and/or sales representative uniforms educated on respiratory treatment and medications. Patient and/or sales representative uniforms verbalized understanding. Will continue to monitor patient progress.
--- NOTE | 2021-01-17 17:41 | PC.NUTR ---
Nutrition follow up: Pt reports good intakes at least 2 meals per day. Will discontinue Glucerna per pt request. Requesting Ensure, but will not add at this time as glucose elevated, and nurse does not think that pt will be able to maintain good glucose control if Ensure added to meals. If po intakes decrease to <50% however, would recommend Ensure with meals despite higher CHO content in order to meet nutritional needs. Pt requesting coffee--ok to add decaf with meals per Dr. Sierra. See full RD assessment for further details.
[2021-01-17] MEDS: montelukast sodium 10 mg Tablet PO (20:53)
[2021-01-18] VITALS (7 sets, daily range): BP systolic 119–133; BP diastolic 65–76; PULSE 78–101; RESP 18–20; TEMP 36.4–36.8; O2SAT 83–98
[2021-01-18 02:20] LABS: Glucose Point of Care 154 mg/dL (70-110)
[2021-01-18] MEDS: fenofibrate 145 mg Tablet PO (04:49)
[2021-01-18] MEDS: dexamethasone 10 mg/mL INJ 6 MG IVP (04:50)
[2021-01-18 06:40] LABS: Glucose Point of Care 132 mg/dL (70-110)
[2021-01-18 07:13] LABS: Basophils # 0.1 10^3/uL (0.0-0.1); Basophils % 0.7 %; Eosinophils % 0.1 %; Hematocrit 38.6 % (37.0-47.0); Hemoglobin 11.7 g/dL (11.5-15.3); Lymphocytes # 1.4 10^3/uL (0.8-4.8); Lymphocytes % 13.1 %; Mean Corpuscular HGB Conc 30.3 g/dL (30.0-36.0); Mean Corpuscular Hemoglobin 27.3 pg (28.0-34.0); Mean Corpuscular Volume 90.2 fL (81-99); Mean Platelet Volume 10.9 fL (7.4-10.4); Monocytes # 0.9 10^3/uL (0.2-0.9); Monocytes % 8.4 %; Neutrophils # 7.73 10^3/uL (1.8-7.7); Neutrophils % 73.2 %; Nucleated Red Blood Cells % 0 %; Platelet Count 323 10^3/cmm (130-400); Red Blood Count 4.28 10^6/uL (4.1-5.3); Red Cell Distribution Width 14.5 % (12.1-15.1); White Blood Count 10.6 10^3/uL (4.0-10.0)
[2021-01-18 07:44] LABS: Alanine Aminotransferase 15 U/L (0-33); Albumin Level 3.7 g/dL (3.5-5.2); Alkaline Phosphatase 110 IU/L (35-105); Anion Gap 15.9 (5-19); Aspartate Amino Transferase 23 U/L (0-32); Blood Urea Nitrogen 14 mg/dL (8-23); C Reactive Protein 1.9 mg/L (0.0-4.9); Calcium 9.1 mg/dL (8.5-10.5); Carbon Dioxide 27 mmol/L (22-29); Chloride 101 mmol/L (98-107); Globulin 2.4 g/dL (1.3-4.6); Glomerular Filtration Rate 161.7 mL/min (90-130); Glucose 128 mg/dL (65-115); Magnesium 1.9 mg/dL (1.7-2.3); Osmolality Calculated 292 mOsm/kg (285-295); Phosphorus 3.6 mg/dL (2.5-4.5); Potassium 3.9 mmol/L (3.5-5.1); Sodium 140 mmol/L (136-145); Total Bilirubin 0.6 mg/dL (0.15-1.2); Total Protein 6.1 g/dL (6.6-8.7)
[2021-01-18 07:47] LABS: Creatinine Clr Calc Pharmacy 156.0914
[2021-01-18 07:55] LABS: NT Pro B Type Natriuretic Pept 116 pg/mL (0-125); Procalcitonin 0.04 ng/mL (0-0.5)
[2021-01-18] MEDS: levothyroxine 75 mcg Tablet PO (08:17)
[2021-01-18] MEDS: ascorbic acid 500 mg Tablet 1000 MG PO (08:17)
[2021-01-18] MEDS: doxycycline 100 mg Tablet PO (08:17)
[2021-01-18] MEDS: phosphorus 250 mg Tablet PO (08:17)
[2021-01-18] MEDS: zinc gluconate 50 mg Tablet PO (08:17)
[2021-01-18] MEDS: pantoprazole 40 mg SDV IVP (08:17)
[2021-01-18] MEDS: gabapentin 400 mg Capsule PO ×2 (08:18→14:39)
[2021-01-18] MEDS: metoprolol succinate ER (24 HR) 50 mg Tablet PO (08:18)
[2021-01-18] MEDS: cholecalciferol (vitamin D3) 1,000 unit Tablet 2000 UNIT PO (08:18)
[2021-01-18 11:48] LABS: Glucose Point of Care 214 mg/dL (70-110)
--- NOTE | 2021-01-18 13:18 | PC.NURSE ---
Discharge Note Patient discharged to home via private vehicle accompanied by family member. Discharge instructions reviewed with patient and/or veterans contact representative. Mobile pharmacy medications and/or prescriptions provided. Belongings/home medications returned.
--- NOTE | 2021-01-18 15:04 | P.DS_ITS ---
Discharge Providers Date of Admission: 01/08/21 21:52 Date of Discharge: January 18, 2021 Attending Provider at Admission: Bettie Naylor MD Attending Provider at Discharge: Kailash Eaton Primary Care Provider: СЕРГЕЙ Milligan Diagnoses at Discharge Discharge Diagnosis (1) COVID-19: Status: Acute (2) Asthma: Status: Chronic (3) Diabetes mellitus with hyperglycemia, without long-term current use of insulin: Status: Chronic Qualifiers: Diabetes mellitus type: type 2 Qualified Code(s): E11.65 - Type 2 diabetes mellitus with hyperglycemia (4) Adult onset hypothyroidism: Status: Chronic (5) Essential (primary) hypertension: Status: Chronic Reason for Visit Reason for Visit: low o2 Hospital Course Hospital Course 60-year-old female with a past medical history significant for hypothyroidism, hypertension, diabetes mellitus who presented to the hospital with respiratory distress. Patient was found to have COVID-19 pneumonia. Was started on Remdesivir which she completed a 5 day course on 01/08. Decadron was also initiated. During hospitalization patient also receive Actemra on 01/09. Oxygen requirements had gradually improved. CT angio had not shown any evidence of acute pulmonary embolism.At the time of discharge patient was still requiring supplemental oxygen however. 4 L at rest and 6 L with exertion. This was arranged for patient at the time of discharge.Patient was wanting to go home. Comfortable with discharge. Physical Exam Const: COMMON NORMALS: no acute distress and patient oriented x3 HENMT: COMMON NORMALS: normocephalic HEAD & SCALP: normocephalic Neck/C-Spine: COMMON NORMALS: no JVD Resp: COMMON NORMALS: normal respiratory effort, No retractions, No use of accessory muscles and clear to auscultation bilaterally AUSCULTATION: clear to auscultation bilaterally and diminished lung sounds diffuse OTHER: Decreased breath sounds in all lung ramos Cardio: COMMON NORMALS: no JVD, regular rate, regular rhythm, S1 normal heart sound present, S2 normal heart sound present and No murmurs present (Cardio) RATE: regular rate RHYTHM: regular rhythm HEART SOUNDS: S1 normal heart sound present and S2 normal heart sound present GI: COMMON NORMALS: Normal to inspection, nondistended, normoactive bowel sounds present, Soft to palpation, non-tender and No hepatosplenomegaly present PALPATION: Yes Soft to palpation and Yes No hepatosplenomegaly present Extremity: COMMON NORMALS: no pedal edema Neuro: COMMON NORMALS: patient oriented x3 Psych: COMMON NORMALS: mental status grossly normal Urinary Catheter Management^: Kimble: Cath Placed During This Visit: yes, but has since been removed by the nurse Reason for Continuing Indwelling Catheter: Decision to DC Catheter Urinary Catheter Date of Insertion: 01/08/21 Date Urinary Catheter Removed: 01/17/21 Time Urinary Catheter Discontinued: 08:58 Discharge Data Data Completed and Pending: Completed Studies During Hospitalization Category Date Time Status CT angio chest PE protcl 79193 Urge nt Cat Scan 01/08/21 07:33 Completed XR chest 1V joseline ble [id number] Routine Exams 01/10/21 07:00 Completed XR chest 1V joseline ble [id number] Routine Exams 01/13/21 07:00 Completed XR chest 1V joseline ble [id number] Stat Exams 01/08/21 05:00 Completed CV. echo complete * [id number] Routine Ultrasound 01/11/21 08:00 Completed Vitals: Last Vital Signs Temp 98.3 F 01/18/21 14:45 Pulse 95 01/18/21 14:45 Resp 19 H 01/18/21 14:45 BP 119/74 01/18/21 14:45 Pulse Ox 98 01/18/21 14:45 Discharge Plan Discharge Patient Disposition: Home Condition: Stable Prescriptions: New metoprolol succinate 50 mg Tablet Extended Release 24 Hr 50 mg PO DAILY Qty: 30 RF: 0 Continued ascorbic acid (vitamin C) 1,000 mg tablet 1,000 mg PO DAILY RF: 0 vitamin E (dl, acetate) 400 unit capsule 400 unit PO DAILY RF: 0 pyridoxine (vitamin B6) 100 mg tablet 100 mg PO BID RF: 0 cholecalciferol (vitamin D3) 125 mcg (5,000 unit) tablet 125 mcg PO DAILY RF: 0 aspirin [Adult Low Dose Aspirin] 81 mg tablet,delayed release (DR/EC) 162 mg PO BEDTIME RF: 0 levothyroxine 100 mcg tablet See Rx Instructions PO DAILY Qty: 90 RF: 1 Janumet XR 50-500 mg tablet, ER multiphase 24 hr 1 tab PO DAILY Qty: 30 RF: 5 famotidine [Pepcid] 20 mg tablet 40 mg PO BID Qty: 360 RF: 1 gabapentin 600 mg tablet 600 mg PO TID 90 Days Qty: 270 RF: 1 Tylenol Extra Strength 500 mg Tablet 1,000 mg PO PRN RF: 0 cranberry 1 tab PO BEDTIME RF: 0 cyclobenzaprine 10 mg tablet 10 mg PO BEDTIME RF: 0 montelukast 10 mg tablet 10 mg PO BEDTIME RF: 0 Tricor 145 mg tablet 145 mg PO QAM RF: 0 Discontinued metoprolol succinate [Toprol XL] 100 mg tablet extended release 24 hr 100 mg PO DAILY Qty: 90 RF: 1 No Action budesonide [Pulmicort] 0.5 mg/2 mL suspension for nebulization 0.5 mg inhalation BID Qty: 120 RF: 2 levalbuterol HCl [Xopenex] 0.63 mg/3 mL solution for nebulization 0.63 mg inhalation TID PRN (Reason: shortness of breath or wheezing) Qty: 75 RF: 5 (DME) blood-glucose meter [OneTouch Ultra2 Meter] Kit See Rx Instructions .ROUTE .MEDSUPPLY Qty: 1 RF: 0 (DME) OneTouch Ultra Blue Test Strip Strip See Rx Instructions .ROUTE .MEDSUPPLY Qty: 50 RF: 5 Discharge Orders: Discharge Order (Routine); Ordered 01/18/21 Ordered By: Kailash Eaton Other Ambulatory Orders: DME: Oxygen (Order) Location: None Selected Ordered By: Kailash Eaton Referrals: Blanquita Hawley FNPCarrieC [Primary Care Provider] - 01/20/21 10:20 am Discharge Diet: Advance as tolerated Discharge Activity: Increase activity as tolerated Patient Instructions: Type 2 Diabetes, Diabetes and Diet, Severe Acute Respiratory Syndrome (SARS) (DC), Opioid Safety, Upper Respiratory Infection - Adult Discharge Attestations Time Spent in Discharge Care*: greater than 30 min Status at Discharge: Cognitive status at discharge: cognitively intact , Behavioral status at discharge: cooperative , Functional status at discharge: independent ambulation Overall status at discharge: patient is progressing back to baseline Quality Metrics Clinical Quality Measures During this hospital stay, did patient experience: None Coding Level of Care Code Acute Chg FW DC note Diagnoses COVID-19 U07.1 Asthma J45.909 Diabetes mellitus with hyperglycemia, without long-term current use of insulin E11.65 Diabetes mellitus type: type 2 Adult onset hypothyroidism E03.8 Essential (primary) hypertension I10
--- NOTE | 2021-01-24 13:16 | PC.SOCIAL ---
hospital discharge, follow up call made. patient had telehealth visit with pcp. was discharged on 6L NC O2, is now requiring 5L with sats 99-100%. patient changed metoprolol as prescribed. states she is doing real good
== END 2021-01-18 14:55 | disposition home or self-care (01) | DRG 177 ==
LOC: ER 09:40 → ER IP 12:52 → ICU 17:21 → ER 20:49 → ER IP 21:54 → MS 2A 01-09 00:42
PROVIDERS: Family Medicine; Admitting Provider Hospitalist; Emergency Provider Emergency Medicine; PCP Nurse Practitioner; Visit Provider Hospitalist
DX: U07.1 COVID-19 (principal); J96.01 Acute respiratory failure with hypoxia; M51.06 Intervertebral disc disorders with myelopathy, lumbar region; E03.9 Hypothyroidism, unspecified; J45.909 Unspecified asthma, uncomplicated; E11.65 Type 2 diabetes mellitus with hyperglycemia; I10 Essential (primary) hypertension; E78.5 Hyperlipidemia, unspecified; Z90.710 Acquired absence of both cervix and uterus; Z90.49 Acquired absence of other specified parts of digestive tract; Z83.3 Family history of diabetes mellitus; Z87.891 Personal history of nicotine dependence; Z88.8 Allergy status to other drugs, medicaments and biological substances; Z79.4 Long term (current) use of insulin; Z80.1 Family history of malignant neoplasm of trachea, bronchus and lung; Z79.82 Long term (current) use of aspirin; Z79.890 Hormone replacement therapy
CPT/HCPCS: 36415; 36416; 36600; 51702; 71045; 71275; 80053; 82550; 82728; 82803; 82962; 83605; 83615; 83735; 83880; 84100; 84145; 84484; 85007; 85025; 85378; 85384; 85610; 85730; 86140; 86403; 87040; 87493; 87641; 93005; 93306; 94640; 96365; 96372; 96375; 99285; C9113; J0456; J0696; J1100; J1650; J1815; J1940; J2060; J2765; J3262; J7050; Q9967

== ENCOUNTER → 2021-03-28 10:19 | Outpatient (BNVA) | payer MEDICARE, SELFPAY | PROVIDERS: PCP Nurse Practitioner; Visit Provider Nurse Practitioner | DX: M25.549 Pain in joints of unspecified hand (principal); E11.65 Type 2 diabetes mellitus with hyperglycemia; M10.9 Gout, unspecified; E03.8 Other specified hypothyroidism; I10 Essential (primary) hypertension | CPT/HCPCS: 73130; 80053; 80061; 82306; 83036; 84443; 84550; 85025; 85651; 86140 ==

== ENCOUNTER 2021-04-26 12:42 | Outpatient (CLI) | payer MEDICARE, SELFPAY ==
--- NOTE | 2021-04-26 13:00 | MR_ITS ---
WS: [email or web address] MRI LEFT KNEE NONCONTRAST TECHNIQUE: Axial PD, coronal PD fat sat, coronal PD, sagittal PD, and sagittal PD fat-sat images obta ined. CLINICAL INFORMATION: M25.562 - Pain in left knee COMPARISON: None. FINDINGS: Distal quadriceps and patella tendons are intact. Prepatellar soft tissue edema. Normal ACL and PCL. Chronic thinning of the medial and lateral meniscus. Chronic intrasubstance signal abnormality in the menisci. No acute appearing meniscal tears. Normal medial and lateral collateral ligaments. Normal b one marrow signal in the femoral condyles and tibial plateau. Grade II to III chondromalacia involvin g the medial and lateral joint compartments. No subchondral edema. Moderate chondromalacia patella worse involving the lateral patella facet with a small amount of subc hondral edema. Normal medial and lateral patellar retinaculum. Normal popliteal fossa. Tiny lobulated popliteal cyst measuring 0.5 x 2.8 cm AP by craniocaudal. MR/MR knee LT wo con* 85113 IMPRESSION: 1. Normal ACL and PCL. 2. Chronic thinning of the medial and lateral meniscus. No acute appearing men iscal tears. 3. Moderate chondromalacia involving the medial and lateral joint compartments with joint space narrowing. No subchondral edema. 4. Moderate chondromalacia patella involving the lateral patella facet with a small amount of subchondral edema. 5. Medial and lateral collateral ligaments are intact. 6. Small lobulated popliteal cyst measuring 0.5 x 2.8 cm AP by craniocaudal. Outbridge grading:
== END 2021-04-26 12:43 | disposition home or self-care (01) ==
LOC: RADSHAW 12:48
PROVIDERS: PCP Nurse Practitioner; Visit Provider Nurse Practitioner
DX: M71.22 Synovial cyst of popliteal space [Baker], left knee (principal); M22.42 Chondromalacia patellae, left knee
CPT/HCPCS: 71046; 73721

== ENCOUNTER → 2021-06-20 10:15 | Outpatient (BNVA) | payer MEDICARE, SELFPAY | PROVIDERS: PCP Nurse Practitioner; Visit Provider Nurse Practitioner | DX: M10.9 Gout, unspecified (principal); E03.8 Other specified hypothyroidism; M25.50 Pain in unspecified joint; E11.65 Type 2 diabetes mellitus with hyperglycemia | CPT/HCPCS: 80053; 81000; 82043; 83036; 84443; 84550; 85025; 85651; 86038; 86140; 86431 ==

== ENCOUNTER → 2021-07-26 08:29 | Outpatient (BNVA) | payer MEDICARE, SELFPAY | PROVIDERS: PCP Nurse Practitioner; Visit Provider Internal Medicine Rheumatology | DX: M05.79 Rheumatoid arthritis with rheumatoid factor of multiple sites without organ or systems involvement (principal); Z79.899 Other long term (current) drug therapy; E11.65 Type 2 diabetes mellitus with hyperglycemia; Z79.84 Long term (current) use of oral hypoglycemic drugs; Z11.59 Encounter for screening for other viral diseases; Z71.85 Encounter for immunization safety counseling | CPT/HCPCS: 99204 ==

== ENCOUNTER 2021-08-24 14:30 | Outpatient (CLI) | payer MEDICARE, SELFPAY ==
--- NOTE | 2021-08-24 14:49 | XR_ITS ---
WS: [email or web address] XR hip LT 2-3V wo/w pel* [id number] REASON FOR EXAM: Z85.820 - Personal history of malignant melanoma of skin FINDINGS: No fracture or focal bone lesion. Mild narrowing of the joint space with mild subchondral sclerosis and cystic change in the acetabulum . No soft tissue abnormality. XR/XR hip LT 2-3V wo/w pel* [id number] IMPRESSION: Mild to moderate osteoarthritis of the left hip.
--- NOTE | 2021-08-24 14:49 | XR_ITS ---
WS: [email or web address] XR lumbar spine 2-3V* [id number] REASON FOR EXAM: Z85.820 - Personal history of malignant melanoma of skin FINDINGS: Mild rotatory scoliosis convex left on the AP view straightening of the normal lordosis of the lumbar spine on the lateral view At L1-L2 there is significant narrowing of the intervertebral disc space with large anterior osteophy fabio. Intervertebral disc spaces at L2-L3 and L3-L4 are moderately narrowed with anterior osteophytes. Posterior pedicle screws at L4 and L5 with interbody fusion device within the disc interspace L4-L5. The L3 vertebral body demonstrates 4 to 5 mm of anterolisthesis in relation to L2 and L4. XR/XR lumbar spine 2-3V* [id number] IMPRESSION: Degenerative spondylosis and postsurgical change in the lumbar spine. The lumba r spine is essentially unchanged in appearance compared to previous examination of 10/06/2016.
== END 2021-08-24 14:31 | disposition home or self-care (01) ==
PROVIDERS: PCP Nurse Practitioner; Visit Provider Nurse Practitioner
DX: Z85.820 Personal history of malignant melanoma of skin (principal); M16.12 Unilateral primary osteoarthritis, left hip
CPT/HCPCS: 72100; 73502

== ENCOUNTER → 2021-09-05 11:02 | Outpatient (BNVA) | payer MEDICARE, SELFPAY | PROVIDERS: PCP Nurse Practitioner; Referring Provider Nurse Practitioner; Visit Provider Anesthesiology Pain Medicine | DX: M05.79 Rheumatoid arthritis with rheumatoid factor of multiple sites without organ or systems involvement (principal); M43.26 Fusion of spine, lumbar region; M79.604 Pain in right leg; M79.605 Pain in left leg; Z87.891 Personal history of nicotine dependence | CPT/HCPCS: 99204 ==

== ENCOUNTER → 2021-09-19 13:17 | Outpatient (BNVA) | payer MEDICARE, SELFPAY | PROVIDERS: PCP Nurse Practitioner; Visit Provider Internal Medicine Rheumatology | DX: M05.79 Rheumatoid arthritis with rheumatoid factor of multiple sites without organ or systems involvement (principal); Z79.899 Other long term (current) drug therapy; E11.9 Type 2 diabetes mellitus without complications; Z79.84 Long term (current) use of oral hypoglycemic drugs; Z71.85 Encounter for immunization safety counseling | CPT/HCPCS: 99214 ==

== ENCOUNTER 2021-10-20 16:02 | Outpatient (CLI) | payer MEDICARE, SELFPAY ==
--- NOTE | 2021-10-20 16:45 | MR_ITS ---
WS: [email or web address] MRI LUMBAR SPINE NONCONTRAST TECHNIQUE: Sagittal T1, T2 and STIR imaging. Axial T1 and T2 imaging. CLINICAL INFORMATION: M48.062 - Spinal stenosis, lumbar region with neurogenic ... COMPARISON: CT October 06 and MRI December 02, 2015 FINDINGS: Mild lumbar curve. Mild compression superior endplate T12 vertebral body with fluid-filled fracture c left. Loss of approximately 25% vertebral body height. Mild retropulsion of the posterior superior co rtex with mild central canal stenosis. No high-grade central canal narrowing. Pedicles appear intact. Mild bilateral T11-T12 foraminal narrowing. Prior interbody bony fusion L4-L5 with pedicle screw fixation. Bony fusion beyond the confines of the graft. L1-L2: Mild disc bulging and osteophytic ridging. Slight impingement LEFT subarticular recess. Mild f acet arthropathy. Mild RIGHT foraminal narrowing. L2-L3: Mild disc bulging with mild central canal stenosis. Moderate facet arthropathy ligamentum flav um hypertrophy. Foramen are patent. L3-L4: Slight anterolisthesis. Moderate to severe central canal stenosis and impingement traversing L 4 nerve roots bilaterally. Grade 1 anterolisthesis. Moderate LEFT and no significant RIGHT foraminal narrowing. Slight impingement on the exiting LEFT L3 nerve root. Advanced facet arthropathy with liga mentum flavum hypertrophy. L4-L5: Pedicle screw fixation L4-L5 with interbody fusion graft. Spinal canal and foramen are patent. Moderate facet arthropathy. L5-S1: Pedicle screw fixation L5. No significant disc bulging. Mild osteophytic ridging. Spinal canal and foramen are patent. Mild facet arthropathy. 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 Paravertebral soft tissues: Normal. MR/MR lumbar spine wo con* [id number] IMPRESSION: 1. Mild compression superior endplate T12 with fluid-filled fracture cleft. Lo ss of approximately 25% vertebral body height. Mild retropulsion posterior spur cortex with mild central canal stenosis. Mild bilateral T11-T12 foraminal narr owing. Pedicles appear intact. 2. Grade 1 anterolisthesis L3 on L4 with moderate to severe central canal sten osis. Impingement traversing L4 nerve roots bilaterally. Facet arthropathy with ligamentum flavum hypertrophy contributes to stenosis. This appears progressed compared to 2017. 3. Moderate LEFT L3-L4 foraminal narrowing impinges the exiting LEFT L3 nerve root. 4. Mild central canal stenosis L1-L2 and L2-L3 due to mild disc bulging in com bination with facet arthropathy and ligament flavum hypertrophy. 5. 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
== END 2021-10-20 16:03 | disposition home or self-care (01) ==
LOC: RAD 16:05
PROVIDERS: PCP Nurse Practitioner; Visit Provider Anesthesiology Pain Medicine
DX: M05.79 Rheumatoid arthritis with rheumatoid factor of multiple sites without organ or systems involvement (principal); M48.062 Spinal stenosis, lumbar region with neurogenic claudication; Z79.899 Other long term (current) drug therapy; M48.04 Spinal stenosis, thoracic region; G54.4 Lumbosacral root disorders, not elsewhere classified; G54.3 Thoracic root disorders, not elsewhere classified; Z98.1 Arthrodesis status
CPT/HCPCS: 72148; 80076; 82565; 85025; 86140

== ENCOUNTER → 2021-10-31 11:08 | Outpatient (BNVA) | payer MEDICARE, SELFPAY | PROVIDERS: PCP Nurse Practitioner; Visit Provider Anesthesiology Pain Medicine | DX: M43.26 Fusion of spine, lumbar region (principal); M05.79 Rheumatoid arthritis with rheumatoid factor of multiple sites without organ or systems involvement; M79.604 Pain in right leg; M79.605 Pain in left leg; Z87.891 Personal history of nicotine dependence | CPT/HCPCS: 99214 ==

== ENCOUNTER → 2021-11-15 14:29 | Outpatient (BNVA) | payer MEDICARE, SELFPAY | PROVIDERS: PCP Nurse Practitioner; Visit Provider Anesthesiology Pain Medicine | DX: Z87.891 Personal history of nicotine dependence (principal); M47.816 Spondylosis without myelopathy or radiculopathy, lumbar region | CPT/HCPCS: 64493; 64494; 64495; J3490 ==

== ENCOUNTER → 2021-11-17 14:15 | Outpatient (BNVA) | payer MEDICARE, SELFPAY | PROVIDERS: PCP Nurse Practitioner; Visit Provider Nurse Practitioner | DX: M51.06 Intervertebral disc disorders with myelopathy, lumbar region (principal); M43.26 Fusion of spine, lumbar region; E11.65 Type 2 diabetes mellitus with hyperglycemia; J45.909 Unspecified asthma, uncomplicated; L50.9 Urticaria, unspecified; E11.69 Type 2 diabetes mellitus with other specified complication; E78.5 Hyperlipidemia, unspecified; E03.8 Other specified hypothyroidism; M25.562 Pain in left knee | CPT/HCPCS: 80053; 80061; 82043; 83036; 84443 ==

== ENCOUNTER → 2021-11-28 10:05 | Outpatient (BNVA) | payer MEDICARE, SELFPAY | PROVIDERS: PCP Nurse Practitioner; Visit Provider Internal Medicine Rheumatology | DX: M06.9 Rheumatoid arthritis, unspecified (principal); Z79.899 Other long term (current) drug therapy; Z11.59 Encounter for screening for other viral diseases; M05.79 Rheumatoid arthritis with rheumatoid factor of multiple sites without organ or systems involvement; Z71.85 Encounter for immunization safety counseling | CPT/HCPCS: 80076; 82306; 82565; 85025; 86140; 86200; 86480; 86704; 86803; 87340 ==

== ENCOUNTER → 2021-11-29 13:18 | Outpatient (BNVA) | payer MEDICARE, SELFPAY | PROVIDERS: PCP Nurse Practitioner; Visit Provider Anesthesiology Pain Medicine | DX: Z87.891 Personal history of nicotine dependence (principal); M47.816 Spondylosis without myelopathy or radiculopathy, lumbar region | CPT/HCPCS: 64493; 64494; 64495; J3490 ==

== ENCOUNTER → 2021-12-20 10:09 | Outpatient (BNVA) | payer MEDICARE, SELFPAY | PROVIDERS: PCP Nurse Practitioner; Visit Provider Anesthesiology Pain Medicine | DX: M43.26 Fusion of spine, lumbar region (principal); M05.79 Rheumatoid arthritis with rheumatoid factor of multiple sites without organ or systems involvement; M79.604 Pain in right leg; M79.605 Pain in left leg; Z87.891 Personal history of nicotine dependence | CPT/HCPCS: 99214 ==

== ENCOUNTER → 2022-01-10 13:19 | Outpatient (BNVA) | payer MEDICARE, SELFPAY | PROVIDERS: PCP Nurse Practitioner; Visit Provider Internal Medicine Rheumatology | DX: M05.79 Rheumatoid arthritis with rheumatoid factor of multiple sites without organ or systems involvement (principal); Z79.899 Other long term (current) drug therapy; Z71.85 Encounter for immunization safety counseling; E11.9 Type 2 diabetes mellitus without complications; Z79.84 Long term (current) use of oral hypoglycemic drugs | CPT/HCPCS: 99214 ==

== ENCOUNTER 2022-02-21 11:31 | Outpatient (CLI) | payer MEDICARE, SELFPAY ==
--- NOTE | 2022-02-21 11:53 | MR_ITS ---
WS: [email or web address] MRI LEFT HIP NONCONTRAST TECHNIQUE: Axial T1, axial T2 fat sat, coronal T1, coronal STIR, sagittal T2 fat sat, sagittal T1, an d sagittal T2 fat sat, of both hips. CLINICAL INFORMATION: PAIN IN LEFT HIP COMPARISON: Radiograph August 24, 2021 FINDINGS: Moderate degenerative arthritis LEFT hip with joint space narrowing. Normal bone marrow signal in the femoral head and femoral neck. No acute fractures. No evidence of avascular necrosis. Normal bone marrow signal in the visualized sacrum and bony pelvis. Normal pubic rami. Normal LEFT ac etabulum. Normal partially visualized LEFT superior and inferior pubic rami. No significant joint eff usion. No inguinal lymphadenopathy. Normal visualized pelvic soft tissues. Bladder is decompressed. M ild degenerative arthritis bilateral sacroiliac joints. MR/MR hip LT wo con* [id number] IMPRESSION: 1. Moderate degenerative arthritis LEFT hip with joint space narrowing. 2. Small amount of subchondral cystic change in the anterior femoral head. No evidence of avascular necrosis. No acute fractures. 3. Normal bone marrow signal in the bony pelvis and sacrum. 4. Mild degenerative arthritis bilateral sacroiliac joints. 5. No other suspicious findings.
== END 2022-02-21 11:32 | disposition home or self-care (01) ==
PROVIDERS: PCP Nurse Practitioner; Visit Provider Neurological Surgery
DX: M16.12 Unilateral primary osteoarthritis, left hip (principal); M47.898 Other spondylosis, sacral and sacrococcygeal region
CPT/HCPCS: 73721

== ENCOUNTER → 2022-03-14 11:52 | Outpatient (BNVA) | payer MEDICARE, SELFPAY | PROVIDERS: PCP Nurse Practitioner; Visit Provider Nurse Practitioner | DX: G47.9 Sleep disorder, unspecified (principal); M51.06 Intervertebral disc disorders with myelopathy, lumbar region; M05.79 Rheumatoid arthritis with rheumatoid factor of multiple sites without organ or systems involvement; Z79.899 Other long term (current) drug therapy; M19.90 Unspecified osteoarthritis, unspecified site; K13.70 Unspecified lesions of oral mucosa; Z85.820 Personal history of malignant melanoma of skin | CPT/HCPCS: 80076; 82565; 85025; 86140 ==

== ENCOUNTER → 2022-03-17 11:24 | Outpatient (BNVA) | payer MEDICARE, SELFPAY | PROVIDERS: PCP Nurse Practitioner; Visit Provider Otolaryngology | DX: K13.70 Unspecified lesions of oral mucosa (principal) | CPT/HCPCS: 99203 ==

== ENCOUNTER 2022-06-11 06:00 | Outpatient (RCR) | payer MEDICARE, SELFPAY | END 2022-07-11 23:59 | disposition home or self-care (01) | LOC: TPT 06:00 | PROVIDERS: PCP Nurse Practitioner; Visit Provider Neurological Surgery | DX: M54.50 Low back pain, unspecified (principal) | CPT/HCPCS: 97110; 97162 ==

== ENCOUNTER 2022-07-12 06:00 | Outpatient (RCR) | payer MEDICARE, SELFPAY | END 2022-08-08 23:59 | disposition home or self-care (01) | LOC: TPT 06:00 | PROVIDERS: PCP Nurse Practitioner; Visit Provider Neurological Surgery | DX: M54.50 Low back pain, unspecified (principal) | CPT/HCPCS: 97110 ==

== ENCOUNTER 2022-10-10 13:30 | Outpatient (CLI) | payer MEDICARE, SELFPAY ==
[2022-10-10 14:31] LABS: Basophils # 0.1 10^3/uL (0.0-0.1); Basophils % 0.9 %; Eosinophils # 0.1 10^3/uL (0.0-0.8); Eosinophils % 1.2 %; Hematocrit 41.6 % (37.0-47.0); Hemoglobin 13.5 g/dL (11.5-15.3); Lymphocytes # 2.1 10^3/uL (0.8-4.8); Lymphocytes % 30.5 %; Mean Corpuscular HGB Conc 32.5 g/dL (30.0-36.0); Mean Corpuscular Hemoglobin 29.2 pg (28.0-34.0); Mean Platelet Volume 10.2 fL (7.4-10.4); Monocytes # 0.6 10^3/uL (0.2-0.9); Monocytes % 9.4 %; Neutrophils # 3.91 10^3/uL (1.8-7.7); Neutrophils % 57.6 %; Nucleated Red Blood Cells % 0 %; Platelet Count 298 10^3/cmm (130-400); Red Blood Count 4.62 10^6/uL (4.1-5.3); Red Cell Distribution Width 15.3 % (12.1-15.1); White Blood Count 6.8 10^3/uL (4.0-10.0)
[2022-10-10 14:53] LABS: Alanine Aminotransferase 15 U/L (0-33); Albumin Level 4.5 g/dL (3.5-5.2); Alkaline Phosphatase 102 U/L (35-105); Aspartate Amino Transferase 19 U/L (0-32); Globulin 2.8 g/dL (1.3-4.6); Total Bilirubin 0.4 mg/dL (0.15-1.2); Total Protein 7.3 g/dL (6.6-8.7)
== END 2022-10-10 13:31 | disposition home or self-care (01) ==
LOC: LAB 13:34
PROVIDERS: PCP Nurse Practitioner; Visit Provider Internal Medicine Rheumatology
DX: M05.79 Rheumatoid arthritis with rheumatoid factor of multiple sites without organ or systems involvement (principal); M19.90 Unspecified osteoarthritis, unspecified site; Z79.899 Other long term (current) drug therapy
CPT/HCPCS: 36415; 80076; 82565; 85025; 86140

== ENCOUNTER 2022-10-10 13:37 | Outpatient (CLI) | payer MEDICARE, SELFPAY ==
--- NOTE | 2022-10-10 14:38 | XR_ITS ---
WS: [email or web address] XR lumbar spine 2-3V* [id number] REASON FOR EXAM: ARTHRODESIS STATUS FINDINGS: No previous examination for comparison. Posterior pedicle screws at L3, L4, and L5. It appears that the inner connecting rods have fractured between the pedicle screws at L4 and the ped icle screws at L5. Complex interbody device at L4-L5 which has a tilt which is due to deformity of the superior endplate of L4. This may indicate a subacute fracture of L4. XR/XR lumbar spine 2-3V* [id number] IMPRESSION: Postoperative lumbar spine as above. It appears the interconnecting rods have f ractured between L4 and L5. Also appears to be there is a superior endplate com pression fracture of L4 related to the complex interbody device.
== END 2022-10-10 13:38 | disposition home or self-care (01) ==
LOC: RAD 13:46
PROVIDERS: PCP Nurse Practitioner; Visit Provider Neurological Surgery
DX: Z98.1 Arthrodesis status (principal)
CPT/HCPCS: 72100

== ENCOUNTER → 2022-11-08 16:25 | Outpatient (BNVA) | payer MEDICARE, SELFPAY | PROVIDERS: PCP Nurse Practitioner; Visit Provider Nurse Practitioner | DX: E11.65 Type 2 diabetes mellitus with hyperglycemia (principal); E03.8 Other specified hypothyroidism | CPT/HCPCS: 80053; 80061; 81000; 82043; 83036; 84439; 84443; 84481 ==

== ENCOUNTER → 2023-04-02 14:17 | Outpatient (BNVA) | payer MEDICARE, SELFPAY | PROVIDERS: PCP Nurse Practitioner; Visit Provider Nurse Practitioner | DX: E03.8 Other specified hypothyroidism (principal) | CPT/HCPCS: 84439; 84443; 84481 ==

== ENCOUNTER → 2023-07-11 16:02 | Outpatient (BNVA) | payer MEDICARE, SELFPAY | PROVIDERS: PCP Nurse Practitioner; Visit Provider Nurse Practitioner | DX: E11.65 Type 2 diabetes mellitus with hyperglycemia; E03.8 Other specified hypothyroidism | CPT/HCPCS: 80053; 80061; 83036; 84443 ==

== ENCOUNTER → 2023-10-24 13:15 | Outpatient (BNVA) | payer MEDICARE, SELFPAY | PROVIDERS: PCP Nurse Practitioner; Visit Provider Nurse Practitioner | DX: E03.8 Other specified hypothyroidism (principal) | CPT/HCPCS: 84439; 84443; 84481 ==

== ENCOUNTER → 2024-01-02 15:12 | Outpatient (BNVA) | payer MEDICARE, SELFPAY | PROVIDERS: PCP Nurse Practitioner; Visit Provider Nurse Practitioner | DX: E11.65 Type 2 diabetes mellitus with hyperglycemia (principal); E11.9 Type 2 diabetes mellitus without complications; I10 Essential (primary) hypertension; E03.8 Other specified hypothyroidism | CPT/HCPCS: 80053; 80061; 83036; 84439; 84443 ==

== ENCOUNTER 2024-01-22 12:52 | Outpatient (CLI) | payer MEDICARE, SELFPAY ==
--- NOTE | 2024-01-22 13:00 | MM_ITS ---
WS: [email or web address] BILATERAL 3D TOMOSYNTHESIS DIGITAL SCREENING MAMMOGRAM WITH CAD CLINICAL INFORMATION: Z12.31 - Encounter for screening mammogram for malignant ... HISTORY: Screening mammogram. No current complaints. COMPARISON: 2020 TECHNIQUE: Bilateral CC and MLO views. FINDINGS: Fatty-replaced breasts bilaterally. New area of architectural distortion with spiculation upper outer RIGHT breast. This is best seen on the MLO view. Recommend RIGHT diagnostic mammography and ultrasou nd in further evaluation. Few incidental punctate calcifications. Few incidental intramammary lymph nodes. MM/[place] [id number] IMPRESSION: BI-RADS: 0-Incomplete: Need additional imaging evaluation FOLLOW UP: Need Additional Imaging Recommend RIGHT breast diagnostic mammography and ultrasound in further evaluat ion.
== END 2024-01-22 12:53 | disposition home or self-care (01) ==
LOC: MOBLMAM 12:58
PROVIDERS: PCP Nurse Practitioner; Visit Provider Nurse Practitioner
DX: Z12.31 Encounter for screening mammogram for malignant neoplasm of breast (principal); N63.11 Unspecified lump in the right breast, upper outer quadrant; R92.313 Mammographic fatty tissue density, bilateral breasts
CPT/HCPCS: 77063; 77067

== ENCOUNTER 2024-01-25 10:20 | Outpatient (CLI) | payer MEDICARE, SELFPAY ==
--- NOTE | 2024-01-25 10:30 | US_ITS ---
WS: [email or web address] RIGHT UPPER QUADRANT ULTRASOUND HISTORY: R74.01 - Elevation of levels of liver transaminase levels COMPARISON: 04/24/2012 Liver: 15.8 cm in length. Liver is top normal size. Poor visualization of the portal triads. Low-atte nuation throughout the liver. Surface of the liver appears very slightly nodular. No mass or bile ajit t dilatation. Portal Vein: Normal hepatopetal flow with monophasic waveform. Gallbladder: Prior cholecystectomy. CBD: 0.5 cm Pancreas: Poorly visualized. Right kidney: 10.7 cm in length. Normal size. Cortical cyst superior pole 0.7 x 0.6 x 0.9 cm. Aorta and IVC: Unremarkable abdominal aorta and IVC. No ascites. US/US liver [id number] IMPRESSION: 1. Prior cholecystectomy. 2. Tiny cortical cyst superior pole RIGHT kidney. No renal obstruction. 3. Mild hepatic steatosis. Surface of the liver is slightly irregular suggesti ng cirrhosis.
== END 2024-01-25 10:21 | disposition home or self-care (01) ==
LOC: RAD 10:20
PROVIDERS: PCP Nurse Practitioner; Visit Provider Nurse Practitioner
DX: R74.01 Elevation of levels of liver transaminase levels (principal); N28.1 Cyst of kidney, acquired
CPT/HCPCS: 76705

== ENCOUNTER → 2024-02-13 11:18 | Outpatient (BNVA) | payer MEDICARE, SELFPAY | PROVIDERS: PCP Nurse Practitioner; Visit Provider Nurse Practitioner Family | DX: S69.91XA Unspecified injury of right wrist, hand and finger(s), initial encounter (principal); X58.XXXA Exposure to other specified factors, initial encounter; M25.531 Pain in right wrist | CPT/HCPCS: 73110 ==

== ENCOUNTER → 2024-03-03 16:16 | Outpatient (BNVA) | payer MEDICARE, SELFPAY | PROVIDERS: PCP Nurse Practitioner; Visit Provider Nurse Practitioner | DX: E03.8 Other specified hypothyroidism (principal) | CPT/HCPCS: 84443 ==

== ENCOUNTER → 2024-06-26 15:18 | Outpatient (BNVA) | payer MEDICARE, SELFPAY | PROVIDERS: PCP Nurse Practitioner; Visit Provider Nurse Practitioner | DX: J45.909 Unspecified asthma, uncomplicated (principal); M51.06 Intervertebral disc disorders with myelopathy, lumbar region; K58.1 Irritable bowel syndrome with constipation; L50.9 Urticaria, unspecified; I10 Essential (primary) hypertension; E11.65 Type 2 diabetes mellitus with hyperglycemia; E03.8 Other specified hypothyroidism; E55.9 Vitamin D deficiency, unspecified; J45.20 Mild intermittent asthma, uncomplicated | CPT/HCPCS: 80053; 80061; 82306; 83036; 84443 ==

== ENCOUNTER → 2024-09-18 15:07 | Outpatient (BNVA) | payer MEDICARE, SELFPAY | PROVIDERS: PCP Nurse Practitioner; Visit Provider Nurse Practitioner | DX: E55.9 Vitamin D deficiency, unspecified (principal); E11.65 Type 2 diabetes mellitus with hyperglycemia; E03.8 Other specified hypothyroidism; I10 Essential (primary) hypertension | CPT/HCPCS: 80053; 80061; 82306; 83036; 84443 ==

== ENCOUNTER → 2024-09-23 10:12 | Outpatient (BNVA) | payer MEDICARE, SELFPAY | PROVIDERS: PCP Nurse Practitioner; Visit Provider Nurse Practitioner | DX: M50.222 Other cervical disc displacement at C5-C6 level (principal); M50.223 Other cervical disc displacement at C6-C7 level; M25.78 Osteophyte, vertebrae; M89.8X8 Other specified disorders of bone, other site; M48.54XD Collapsed vertebra, not elsewhere classified, thoracic region, subsequent encounter for fracture with routine healing; M51.34 Other intervertebral disc degeneration, thoracic region; M47.894 Other spondylosis, thoracic region; M41.84 Other forms of scoliosis, thoracic region; Z90.49 Acquired absence of other specified parts of digestive tract; M77.8 Other enthesopathies, not elsewhere classified; J84.10 Pulmonary fibrosis, unspecified | CPT/HCPCS: 72050; 72072; 73030 ==

== ENCOUNTER 2024-09-29 14:00 | Outpatient (CLI) | payer MEDICARE, SELFPAY ==
--- NOTE | 2024-09-29 14:30 | MR_ITS ---
WS: [email or web address] MRI CERVICAL SPINE NONCONTRAST TECHNIQUE: Sagittal T1, T2 and STIR imaging. Axial T2, gradient, and fiesta imaging. CLINICAL INFORMATION: M54.2 - Cervicalgia COMPARISON: None. FINDINGS: Straightening the normal cervical lordosis. Cord signal is normal. No high-grade central canal narrowing. Mild chronic compression deformity superior endplate T3. Prominent dorsal subcutaneous lipomatous tissue in the lower cervical and upper thoracic levels. More focal lipoma at the C5 level eccentric to the LEFT measuring approximately 2.4 x 1.5 cm. No enhancing lesions. C2-C3: Mild facet arthropathy. Mild RIGHT foraminal narrowing. Spinal canal is patent. C3-C4: Disc osteophyte complex with endplate ridging. Moderate LEFT facet arthropathy. Moderate LEFT foraminal narrowing. C4-C5: Moderate RIGHT facet arthropathy. Spinal canal is patent. Mild bilateral foraminal narrowing. C5-C6: Disc osteophyte complex with a central protrusion. Slight contact of the cervical cord. Moderate facet arthropathy. Moderate LEFT foraminal narrowing. Mild central canal stenosis. C6-C7: Disc osteophyte complex with slight effacement of the ventral thecal sac. Moderate LEFT foraminal narrowing. C7-T1: Mild LEFT and no significant RIGHT foraminal narrowing. Spinal canal is patent. MR/MR cervical spine wo/w [id number] IMPRESSION: 1. Focal lipoma at the C5 level eccentric to the LEFT measuring 2.4 x 1.5 cm. No other suspicious subcutaneous lesions. 2. Mild central canal stenosis C5-C6 and C6-C7. 3. Moderate LEFT C5-C6 and LEFT C6-7 bony foraminal narrowing.
[2024-09-29] MEDS: gadobenate dimeglumine 20 mL vial IV (14:46)
== END 2024-09-29 14:01 | disposition home or self-care (01) ==
LOC: RAD 14:02
PROVIDERS: PCP Nurse Practitioner; Visit Provider Orthopaedic Surgery
DX: M48.02 Spinal stenosis, cervical region (principal); N88.8 Other specified noninflammatory disorders of cervix uteri; G95.89 Other specified diseases of spinal cord; D17.79 Benign lipomatous neoplasm of other sites; M47.892 Other spondylosis, cervical region; M25.78 Osteophyte, vertebrae; M50.222 Other cervical disc displacement at C5-C6 level; R93.7 Abnormal findings on diagnostic imaging of other parts of musculoskeletal system
CPT/HCPCS: 72156

== ENCOUNTER → 2024-10-09 14:08 | Outpatient (BNVA) | payer MEDICARE, SELFPAY | PROVIDERS: PCP Nurse Practitioner; Visit Provider Orthopaedic Surgery | DX: Z01.818 Encounter for other preprocedural examination (principal); M54.2 Cervicalgia; Z09 Encounter for follow-up examination after completed treatment for conditions other than malignant neoplasm | CPT/HCPCS: 36415; 80053; 81001; 85025; 87086; 99214 ==

== ENCOUNTER 2024-10-13 13:55 | Outpatient (CLI) | payer MEDICARE, SELFPAY ==
--- NOTE | 2024-10-13 15:00 | CT_ITS ---
WS: [email or web address] CT CHEST, ABDOMEN AND PELVIS NONCONTRAST HISTORY: Z85.820 - Personal history of malignant melanoma of skin, increasing RIGHT lower quadrant pain for 3 days. TECHNIQUE: Contiguous 5 mm axial imaging performed through the chest, abdomen and pelvis without IV contrast, oral contrast has been provided. Coronal and sagittal reformats chest. Coronal and sagittal reformats through the abdomen and pelvis. All CT scans at [facility] use at least one of these dose optimization techniques: automated exposure control; mA and/or kV adjustment per patient size (includes targeted exams where dose is matched to clinical indication); or iterative reconstruction. CONTRAST: None DLP: 903.83 mGy.cm COMPARISON: 01/08/2021 and 11/08/[address]: Advanced centrilobular emphysema. Cystic areas in the central lungs consistent with cysts emphysema. There are a few scattered nodular densities with slight spiculation which were present on the most recent study of 01/08/2021. The cystic areas are from the periphery of the lungs sug gesting these are not related to honeycombing and more specific for centrilobular emphysema. 6 mm nodule LEFT lower lobe, image 21 of series 4. This nodule was also present on 03/06/2011. Mild atherosclerosis aorta. Normal size pulmonary artery. Coronary artery calcifications. No pericardial or pleural effusions. No adenopathy. No soft tissue nodules. Abdomen CT: Mild hepatomegaly with diffuse hepatic steatosis. Prior cholecystectomy. Normal spleen and pancreas. No adrenal mass. No renal obstruction. Moderate atherosclerotic plaque abdominal aorta. No ascites or adenopathy. No omental subcutaneous nodules. No GI tract obstruction. Prior appendectomy. Mild sigmoid diverticulosis. No mesenteric implants. Small umbilical hernia contains fat only. Pelvic CT: No ascites. Prior hysterectomy. Well-distended urinary bladder. No abnormality noted in the RIGHT lower quadrant in the area of pain. Posterior lumbar fusion from L3-L5. Interbody disc spacers at L3-4 and L4-5. 50% T12 compression fracture with 5 mm retropulsion of the posterior superior endplate. T12 fracture is new since 03/06/2011. Fracture was present on the study from 10/10/2022. Intramuscular lipoma over the RIGHT hip. T7 hemangioma. Mild anterior wedging of T3. CT/[place] [id number] IMPRESSION: 1. Centrilobular emphysema, advanced. 2. No ascites or free air. 3. No mesenteric nodules or subcutaneous nodules. 4. Mild hepatomegaly with hepatic steatosis. 5. Prior cholecystectomy. 6. Prior appendectomy. 7. Mild side sigmoid diverticulosis without acute diverticulitis. 8. Chronic T12 compression fracture with retropulsion, fracture noted on a susan or radiograph of 10/10/2022.
[2024-10-13] MEDS: iohexol 350 mg/mL 500 mL Btl (per mL) PO (15:08)
== END 2024-10-13 13:56 | disposition home or self-care (01) ==
PROVIDERS: PCP Nurse Practitioner; Visit Provider Nurse Practitioner
DX: Z85.820 Personal history of malignant melanoma of skin (principal); J43.2 Centrilobular emphysema; R16.0 Hepatomegaly, not elsewhere classified; K76.0 Fatty (change of) liver, not elsewhere classified; Z90.49 Acquired absence of other specified parts of digestive tract; Z98.890 Other specified postprocedural states; K57.30 Diverticulosis of large intestine without perforation or abscess without bleeding; M48.54XD Collapsed vertebra, not elsewhere classified, thoracic region, subsequent encounter for fracture with routine healing; R91.8 Other nonspecific abnormal finding of lung field; I70.0 Atherosclerosis of aorta; I25.10 Atherosclerotic heart disease of native coronary artery without angina pectoris; K42.9 Umbilical hernia without obstruction or gangrene; Z98.1 Arthrodesis status; D17.9 Benign lipomatous neoplasm, unspecified; D18.09 Hemangioma of other sites
CPT/HCPCS: 71250; 74176

== ENCOUNTER 2024-10-22 10:15 | Day surgery (SDC) | payer MEDICARE, SELFPAY ==
[2024-10-22] VITALS (9 sets, daily range): BP systolic 129–158; BP diastolic 76–93; PULSE 66–88; RESP 16–17; TEMP 36–36.2; O2SAT 91–97; BMI 26.4
--- NOTE | 2024-10-22 | XR_ITS ---
WS: [email or web address] C-ARM RADIOGRAPHS C-SPINE; 2 IMAGES HISTORY: Removal of lipoma from posterior cervical spine COMPARISON: None available. Intraoperative imaging during removal of the cervical lipoma. There is a marker indicating the posterior lower cervical region. XR/XR cervical spine 3V* [id number] IMPRESSION: Intraoperative imaging during removal of a cervical lipoma.
--- NOTE | 2024-10-22 11:15 | ECG_ITS ---
[facility] Pat Name: Millie Chery Department: Room: Gender: Female Paraeducator: : 1960 Requested By: Maxwell Patel Order Number: [id number] Reading MD: TAMMY BRIAN Measurements Intervals [place] Rate: 79 P: 61 MO: 175 QRS: 33 QRSD: 101 T: 72 QT: 388 QTc: 447 Interpretive Statements SINUS RHYTHM NONSPECIFIC T-WAVE ABNORMALITY Compared to ECG 01/12/2021 05:15:28 No significant changes Electronically Signed On 10-23-2024 23:39:55 CDT by TAMMY BRIAN [email or web address]
[2024-10-22] MEDS: sodium chloride 0.9% 1,000 ML 30 ML IV (11:19)
[2024-10-22 11:30] LABS: Glucose Point of Care 145 mg/dL (70-110)
--- NOTE | 2024-10-22 12:23 | ANES.PREANE2 ---
Pre-Anesthetic Assessment Height/Weight: Height 1.7 m Weight 76.657 kg Temp Pulse Resp BP Pulse Ox O2 Del Method 97.1 F L 88 17 143/85 94 Room Air 10/22/24 11:01 10/22/24 11:01 10/22/24 11:01 10/22/24 11:01 10/22/24 11:01 10/22/24 11:03 Preop Diagnosis: Lipoma and cervical spine Operation Date: 10/22/24 11:55 Proposed Procedures p Excision Tissue Back Excision of Lipoma From Neck Region(Not Applicable) - Maxwell Purdy, DO Familial anesthetic complications: None Was Beta Zay taken within 24 hours: Yes Was Clonidine taken within 24 hours: N/A Last intake: Intake Last Liquid Date 10/21/24 Last Liquid Time 23:59 Last Solid Date 10/21/24 Last Solid Time 19:00 Social No alcohol and No tobacco Exam alert, oriented x 3, clear to auscultation bilaterally and regular rate & rhythm Pulmonary Pulmonary fibrosis - ocassionally SOB, denies any hospital admissions, steroid use within last year, not on oxygen GI Gastroesophageal Reflux Disease Metabolic Diabetes Mellitus and Thyroid Disease Anesthetic Plan ASA status: 3 Anesthesia: General Risk of > 500 ml blood loss (7ml/kg in children): No Medications/Allergies Home Medications ?Medication ?Instructions ?Recorded ?Confirmed ?Last Taken ?Type blood-glucose meter (OneTouch #1 ea 06/03/20 10/21/24 Unknown Rx Ultra2 Meter kit) ascorbic acid (vitamin C) 1,000 mg 1,000 mg PO DAILY 06/29/20 10/21/24 10/18/24 History tablet aspirin 81 mg tablet,delayed 162 mg PO BEDTIME 06/29/20 10/21/24 10/18/24 History release (Adult Low Dose Aspirin) blood sugar diagnostic #50 ea 03/15/21 10/21/24 Unknown Rx folic acid 1 mg tablet 1 mg PO DAILY #90 tabs 10/02/22 10/21/24 10/20/24 Rx blood sugar diagnostic (OneTouch #50 ea 11/06/23 10/21/24 Unknown Rx Ultra Test strips) cholecalciferol (vitamin D3) 25 25 mcg PO DAILY #30 caps 06/29/24 10/21/24 10/18/24 Rx mcg (1,000 unit) capsule budesonide 0.5 mg/2 mL suspension 0.5 mg (2 mL) inhalation BID #120 09/18/24 10/21/24 10/21/24 Rx for nebulization (Pulmicort) mL cyclobenzaprine 10 mg tablet 10 mg PO BID #180 tabs 09/18/24 10/21/24 10/20/24 Rx escitalopram oxalate 5 mg tablet 5 mg PO DAILY #90 tabs 09/18/24 10/21/24 10/20/24 Rx (Lexapro) famotidine 20 mg tablet (Pepcid) 40 mg (2 x 20 mg) PO BID #360 tabs 09/18/24 10/22/24 10/22/24 Rx gabapentin 400 mg capsule 400 mg PO BID #180 caps 09/18/24 10/22/24 10/22/24 Rx levalbuterol HCl 1.25 mg/3 mL 1.25 mg (3 mL) inhalation TID PRN 09/18/24 10/21/24 10/20/24 Rx solution for nebulization shortness of breath or wheezing #270 mL levalbuterol tartrate 45 2 inh inhalation Q6H #15 grams 09/18/24 10/21/24 10/21/24 Rx mcg/actuation aerosol inhaler (Xopenex HFA) metoprolol succinate 50 mg 50 mg PO DAILY #90 tabs 09/18/24 10/22/24 10/22/24 Rx tablet,extended release 24 hr thyroid (pork) 90 mg tablet 90 mg PO DAILY #90 tabs 09/18/24 10/21/24 10/21/24 Rx ([place] Thyroid) sulfamethoxazole 800 1 tab PO BID #20 tabs 10/13/24 10/22/24 10/22/24 Rx mg-trimethoprim 160 mg tablet (Bactrim DS) Allergies Allergy/AdvReac Type Severity Reaction Status Date / Time morphine Allergy Severe ALGY-Anaphy Verified 10/21/24 13:42 laxis Morpholine Analogues Allergy Unknown Unknown Verified 10/21/24 13:07 Current Medications Generic Name Dose Route Start Last Admin Trade Name Freq PRN Reason Stop Dose Admin Sodium Chloride 1,000 mls @ 30 mls/hr 10/22/24 10:30 10/22/24 11:19 Sodium Chloride 0.9% IV 10/23/24 10:29 30 mls/hr .Q24H ABHISHEK Administration PFSH Anesthesia Medical History Immunization counseling High risk medication use Seropositive rheumatoid arthritis of multiple sites Hyperlipidemia associated with type 2 diabetes mellitus Asthma Intervertebral lumbar disc disorder with myelopathy, lumbar region Diabetes mellitus with hyperglycemia, without long-term current use of insulin Adult onset hypothyroidism Essential (primary) hypertension Urticaria of entire body Surgical History History of hysterectomy 2007 History of cholecystectomy 2005 History of lumbar surgery 2006 History of surgery on left wrist 2013 History of melanoma 03/03/2010 right buttock History of colonoscopy 2016 History of endoscopy 2016 Family History Grandfather Cancer Lung Cancer Father Diabetes Other CAD (coronary artery disease) Family history of premature coronary artery disease Stroke Denies family history of Rheumatoid arthritis Lupus Chronic kidney disease (CKD) Lung disease Hypertension Social History Smoking and tobacco/nicotine status: never used tobacco/nicotine Second hand smoke exposure: No Alcohol intake: current Alcohol intake frequency: holidays/special occasions only Substance/Drug Use: never Adopted: No Caregiver/support person: No Lives independently: Yes Household members: spouse Housing: House Marital status: service: No Current occupational status: disabled Do you think of yourself as: Straight/Heterosexual Current gender identity: Female Data Anesthesia Cardiac Studies: Echocardiogram 01/11/21
--- NOTE | 2024-10-22 12:42 | W.PM.OPSUD ---
Surgery/Procedure H&P Update DATE OF PROCEDURE: October 22, 2024 DATE H&P PERFORMED: 10/09/24 H&P UPDATE INFORMATION: I have reviewed H&P completed within last 30 days, I have examined patient prior to procedure and No changes to prior documentation PREOP DIAGNOSIS: Lipoma and cervical spine PLANNED PROCEDURE: Operation Date: 10/22/24 11:55 Proposed Procedures p Excision Tissue Back Excision of Lipoma From Neck Region(Not Applicable) - Maxwell Purdy, DO
[2024-10-22] MEDS: ceFAZolin 2,000 mg SDV 2000 MG IVP (13:02)
[2024-10-22] MEDS: lidocaine-epi 1% 20 mL INJ 10 ML INJECTION (13:47)
--- NOTE | 2024-10-22 14:03 | PM.OP ---
Operative Report Date of procedure: October 22, 2024 Pre-op diagnosis: Lipoma posterior cervical spine Post-op diagnosis: same Procedure done: Removal of lipoma from posterior cervical spine Surgeon: Maxwell Purdy DO Estimated blood loss (mL): 15 Procedure: Removal of lipoma from posterior cervical spine approximately 1 x 2 cm in length in size. Patient brought the op suite after an [place] was placed in the prone position. Arteries appear well-padded. Patient was prepped draped gross fashion. Skin incision made over the posterior cervical spine once incision was through the subcutaneous tissue with the lipoma was identified and borders were identified and tried to get good margins all around the lipoma this was then excised down to the muscular layer. And the lipoma was sent to pathology. Wound was irrigated closed in layered fashion with Vicryl and Monocryl suture. Sterile dressings were applied patient transferred to PACU in stable addition.
--- NOTE | 2024-10-22 14:27 | SUR.PHASEI ---
50mcg fentanyl given in pacu documented by anesthesia. Pt sats 90 to 91% on room air. No more IV pain medication given due to O2 sat. Pt informed of this and recommended an oral pain medication in phase II recovery.
[2024-10-22] MEDS: HYDROcodone-acetaminophen 5-325 mg Tablet 1 TAB PO (14:53)
[2024-10-22] MEDS: ondansetron 2 mg/ML SDV 2 mL 4 MG IVP (15:07)
--- NOTE | 2024-10-22 15:25 | ANE.PACU2 ---
Inpatient post-anesthesia follow up: Airway intact: Yes Vital signs: Temperature 97.1 F Pulse Rate 66 Respiratory Rate 16 Blood Pressure 136/76 Pulse Oximetry 92 Oxygen Delivery Me thod Room Air Oxygen Flow Rate 10 Fraction of Inspir ed Oxygen Hydration adequate: Yes Nausea and vomiting: No Pain level: 1 Mental status: Baseline
== END 2024-10-22 15:26 | disposition home or self-care (01) ==
PROVIDERS: PCP Nurse Practitioner; Visit Provider Orthopaedic Surgery
PROC: (CPT 21932; principal; 2024-10-22 11:45)
DX: D17.79 Benign lipomatous neoplasm of other sites (principal); K21.9 Gastro-esophageal reflux disease without esophagitis; E11.69 Type 2 diabetes mellitus with other specified complication; E78.49 Other hyperlipidemia; E03.9 Hypothyroidism, unspecified; I10 Essential (primary) hypertension; Z79.899 Other long term (current) drug therapy; Z79.82 Long term (current) use of aspirin; Z88.5 Allergy status to narcotic agent
CPT/HCPCS: 21932; 36416; 72040; 76000; 82962; 88304; 88307; 93005; J0690; J1100; J2250; J2405; J2704; J3010; J3490; J7030; J9999

== ENCOUNTER → 2024-11-04 13:51 | Outpatient (BNVA) | payer MEDICARE, SELFPAY | PROVIDERS: PCP Nurse Practitioner; Visit Provider Orthopaedic Surgery | DX: M54.2 Cervicalgia (principal); M43.26 Fusion of spine, lumbar region | CPT/HCPCS: 99024 ==

== ENCOUNTER → 2025-03-10 10:49 | Outpatient (BNVA) | payer MEDICARE, SELFPAY | PROVIDERS: PCP Nurse Practitioner; Visit Provider Nurse Practitioner | DX: E03.8 Other specified hypothyroidism (principal) | CPT/HCPCS: 84443 ==

== ENCOUNTER → 2025-05-11 14:54 | Outpatient (BNVA) | payer MEDICARE, SELFPAY | PROVIDERS: PCP Nurse Practitioner; Visit Provider Nurse Practitioner | DX: E55.9 Vitamin D deficiency, unspecified (principal); I10 Essential (primary) hypertension; E11.65 Type 2 diabetes mellitus with hyperglycemia; E03.8 Other specified hypothyroidism | CPT/HCPCS: 80053; 80061; 82306; 82607; 83036; 84443 ==